=== PATIENT | male | born 1995 | race Caucasian/White ===

== ENCOUNTER → 2020-03-11 | Emergency (ER) | payer BC ==
[~2020-03-11] VITALS: Ht 177.8 cm; Wt 78.5 kg
[~2020-03-11] MED LIST: ADVIL200 MG PO; ATIVAN1 MG PO; NORCO 5-325 TA1 EACH PO; ZOFRAN4 MG PO
--- OUTSIDE RECORDS SUMMARY | ~2020-03-11 | XMS | Encounter Summary ---
Demographics + + + | Address | [address] | | | [place] [address] | + + + | Home Phone | | + + + | Preferred Language | Unknown | + + + | Marital Status | Single | + + + | Presybeterian Affiliation | 1041 | + + + | Race | Unknown | + + + | Ethnic Group | Unknown | + + + Author + + + | Author | [facility] | | | and [place] | + + + | Organization | [facility] | | | and [place] | + + + | Address | Unknown | + + + | Phone | Unavailable | + + + Support + + + + + | Name | Relationship | Address | Phone | + + + + + | Vidal Aceves/Cristiana White | ECON | [address] | | | [place] | | [place] [address] | | + + + + + | Juan Carlos Mejia | ECON | Unknown | | + + + + + Care Team Providers + +------+ + | Care Card Setter Name | Role | Phone | + +------+ + | No, Physician | PCP | Unavailable | + +------+ + Reason for Visit + +--------+ + | Reason | Onset | Comments | | | Date | | + +--------+ + | Medication Refill | 07/07/ | | | | 2014 | | + +--------+ + Encounter Details +--------+--------+ + + + | Date | Type | Department | Care Team | Description | +--------+--------+ + + + | 07/07/ | Refill | [facility] | Khari Carl, | Medication Refill | | 2014 | | ORTHOPEDIC SURGERY | [address] | | | | [address] | [place] | | | | | [place] | [address] | | | | | [address] | | | | | | [phone] | | | +--------+--------+ + + + Social History + + + +--------+------+ | Tobacco Use | Types | Packs/Day | Years | Date | | | | | Used | | + + + +--------+------+ | Current Some Day | Cigarettes | 0.1 | 2 | | | Smoker | | | | | + + + +--------+------+ + +------+---+---+ | Smokeless Tobacco: | Chew | | | | Current User | | | | + +------+---+---+ + + +---------+ + | Alcohol Use | Drinks/Week | oz/Week | Comments | + + +---------+ + | Yes | 3 Cans of beer | 3.0 | | + + +---------+ + + + + | Sex Assigned at | Date Recorded | | | | + + + | Not on file | | + + + documented as of this encounter Miscellaneous Notes Telephone Encounter - Helen Atwood - 07/08/2015 11:47 AM PDTPatients mother Cristiana ruby picked up rx with valid [id number] signed by Helen Atwood at 07/08/2015 1 1:48 AM PDTTelephone Encounter - Helen Atwood - 07/08/2015 11:19 AM PDTPatient stated his mother Misti will greens picker Rx with valid Id.Electronically signed by Helen Atwood at 11:20 AM PDTTelephone Encounter - Helen Atwood - 07/07/2015 4:39 PM PDTLeft mess age for patient to return our call. 4: 40 PM PDTTelephone Encounter - Yas Simms Cert MA - 07/07/2015 4:[address]Willard cleveland to fill the medication requested. Rx prepared and signed by . Rx placed in the designated area for the patient greens picker. Please contact the patient to let the patient know that the Rx is ready. The patient will need to provide a form of ID when picki ng up the prescription. Please verify the patients ID at greens picker. elephon e Encounter - Yas Simms Cert MA - 07/07/2015 2:41 PM PDT*Deferred to Dr. Silvino stinson* elephon e Encounter - Helen Atwood - 07/07/2015 2:09 PM PDTPatients mother called requesting Hy drocodone 5-325 mg. Patients mother can be reached at [phone]. His phone is not working currently. 2 :10 PM PDTdocumented in this encounter Plan of Treatment Not on filedocumented as of this encounter Visit Diagnoses Not on filedocumented in this encounter"
--- OUTSIDE RECORDS SUMMARY | ~2020-03-11 | XMS | Encounter Summary ---
Demographics + + + | Address | [address] | | | [place] [address] | + + + | Home Phone | | + + + | Preferred Language | Unknown | + + + | Marital Status | Single | + + + | Zoroastrian Affiliation | 1041 | + + + | Race | Unknown | + + + | Ethnic Group | Unknown | + + + Author + + + | Author | [facility] | | | and [place] | + + + | Organization | [facility] | | | and [place] | + + + | Address | Unknown | + + + | Phone | Unavailable | + + + Support + + + + + | Name | Relationship | Address | Phone | + + + + + | Vidal Aceves/Cristiana White | ECON | [address] | | | [place] | | [place] [address] | | + + + + + | Juan Carlos Mejia | ECON | Unknown | | + + + + + Care Team Providers + +------+ + | Care Clinical Cytopathologist Name | Role | Phone | + +------+ + PCP | Unavailable | + +------+ + Encounter Details +--------+ + + + + | Date | Type | Department | Care Team | Description | +--------+ + + + + | 01/04/ | Hospital | [facility] | Miguel, | | | 2008 | Encounter | [facility] | Jean Claude Marmolejo MD [address] | | | | [place] [address] | [address] | | | | | [place], [place] | [place] [address] | | | | | [address] | [phone] | | | | | [phone] | | | +--------+ + + + + Social History + +-------+ +--------+------+ | Tobacco Use | Types | Packs/Day | Years | Date | | | | | Used | | + +-------+ +--------+------+ | Never Assessed | | | | | + +-------+ +--------+------+ + + + | Sex Assigned at | Date Recorded | | | | + + + | Not on file | | + + + documented as of this encounter Plan of Treatment Not on filedocumented as of this encounter Visit Diagnoses Not on filedocumented in this encounter"
--- OUTSIDE RECORDS SUMMARY | ~2020-03-11 | XMS | Encounter Summary ---
Demographics + + + | Address | [address] | | | [place] [address] | + + + | Home Phone | | + + + | Preferred Language | Unknown | + + + | Marital Status | Single | + + + | Christianity Affiliation | 1041 | + + + | Race | Unknown | + + + | Ethnic Group | Unknown | + + + Author + + + | Author | [facility] | | | and [place] | + + + | Organization | [facility] | | | and [place] | + + + | Address | Unknown | + + + | Phone | Unavailable | + + + Support + + + + + | Name | Relationship | Address | Phone | + + + + + | Vidal Aceves/Cristiana White | ECON | [address] | | | [place] | | [place] [address] | | + + + + + | Juan Carlos Mejia | ECON | Unknown | | + + + + + Care Team Providers + +------+ + | Care Perishable Fruit Inspector Name | Role | Phone | + +------+ + | No, Physician | PCP | Unavailable | + +------+ + Reason for Visit + + + | Reason | Comments | + + + | Trauma | | + + + | Neck Injury | | + + + Encounter Details +--------+ + + + + | Date | Type | Department | Care Team | Description | +--------+ + + + + | 02/04/ | Emergency | [facility] | [place], | Cervical strain, | | 2019 | | [facility] | MD [address]ino [address] | acute, initial | | | | CENTER [address] | [address] | encounter (Primary | | | | [place], [place] | [place] [address] | Dx); Tension | | | | [id number] | [phone] | headache; Upper back | | | | [phone] | | strain, initial | | | | | | encounter | +--------+ + + + + Social History + + + +--------+------+ | Tobacco Use | Types | Packs/Day | Years | Date | | | | | Used | | + + + +--------+------+ | Former Smoker | Cigarettes | 0.1 | 2 | | + + + +--------+------+ + [...] + + documented as of this encounter Last Filed Vital Signs + + + + + | Vital Sign | Reading | Time Taken | Comments | + + + + + | Blood Pressure | 126/65 | 02/05/2020 11:50 AM | | | | | PDT | | + + + + + | Pulse | 49 | 02/05/2020 11:50 AM | | | | | PDT | | + + + + + | Temperature | 36.7 C (98 F) | 02/05/2020 9:29 AM | | | | | PDT | | + + + + + | Respiratory Rate | 16 | 02/05/2020 11:50 AM | | | | | PDT | | + + + + + | Oxygen Saturation | 99% | 02/05/2020 11:50 AM | | | | | PDT | | + + + + + | Inhaled Oxygen | - | - | | | Concentration | | | | + + + + + | Weight | 80.7 kg (178 lb) | 02/05/2020 9:29 AM | | | | | PDT | | + + + + + | Height | 177.8 cm (5' 10") | 02/05/2020 9:29 AM | | | | | PDT | | + + + + + | Body Mass Index | 25.54 | 02/05/2020 9:29 AM | | | | | PDT | | + + + + + documented in this encounter Discharge Instructions Instructions Dino Talley MD - 02/05/2020There is no evidence of fracture or bleed o r other vascular injury. This sounds like most likely a muscle strain, some of the muscle s pasm causing some headaches. Ice, ibuprofen, follow-up with your doctor for reevaluation if not improving. Return for any other concerns. Thank you for visiting [facility] Emergency Department. Please follow up with your primary care provider in the next 1-3 days unless otherwise spec ified. If you review your results on "My Charts" and there happens to be any concerns or abnormali ties that you have a question about, please follow up with your primary care provider to dis cuss these results. Please read all informational handouts and medication instructions, if provided. Please be aware that although we feel you are safe for discharge at this time, disease proc esses are dynamic and your condition may change. If you have any significant concerns about your condition that you fear may be emergent in nature, please return for re-evaluation. Changes in the disease process may allow certain conditions to be detected at a different t shiv. You would not be released today if there was evidence of an emergent medical or surgica l condition that would benefit from admission to the hospital or emergent surgery. Although this emergency department is staffed with highly trained physicians that are board certified in emergency medicine, unfortunately not all significant problems are detectable during the time of evaluation. This is why it is important for you to return if significantly concerne d, or otherwise follow up with your primary care provider for re-evaluation. documented in this encounter Medications at Time of Discharge + + + +---------+ + + | Medication | Sig | Dispensed | Refills | Start | End Date | | | | | | Date | | + + + +---------+ + + | cyclobenzaprine | take 1 tablet by | | 0 | 09/15/19 | | | (FLEXERIL) 5 MG | mouth every 6 hours | | | 17 | | | tablet | if needed | | | | | + + + +---------+ + + | ibuprofen (ADVIL, | Take 600 mg by mouth | | 0 | | | | MOTRIN) 200 mg | Twice daily as | | | | | | tablet | needed for Pain. | | | | | + + + +---------+ + + documented as of this encounter ED Notes Sugey Graves RN - 02/05/2020 9:30 AM PDTPt was thrown from a bull on Tuesday carley g the day. Has had neck pain and head pain since. Had loss of vision in the left eye immed iately after, that resolved quickly. Also had confusion after event, unknown amount of time, that resolved. Pt is unsure if he had LOC. Pt had numbness to the left pinky on Tuesday th at resolved same day. Pt is having some pain to the middle of the shoulder blade area. Pt w alked in, was placed in c-collar at urgent care. Pt had c-spine tenderness on their exam. Dino Thorne MD - 02/05/2020 9:30 AM PDT eMERGENCY dEPARTMENT eNCOUnter ED06/ED06 CHIEF COMPLAINT Chief Complaint Patient presents with Trauma Neck Injury HPI Km Hoff is a 24 y.o. male who presents to the emergency department with a chief c omplaint of neck trauma. He was thrown from a bull on Tuesday and landed on the left side of his head and neck. He does not know whether he had a loss of consciousness, he did have a brief loss of vision in the left eye, that resolved very quickly. He was reportedly a lit tle confused after the event, but that has resolved as well. He has been having headaches s gonzalez that time, and reports that he does have some tenderness in the upper thoracic region. He went to an urgent care for evaluation and they placed him in a cervical collar and sent him to the emergency department for evaluation/imaging. PAST MEDICAL HISTORY Past Medical History: Diagnosis Date Shoulder dislocation, right, subsequent encounter SURGICAL HISTORY Past Surgical History: Procedure Laterality Date KNEE ARTHROSCOPY Left 07/11/2015 Procedure: Left Knee A.C.L. Reconstruction w/ Autograft and arthroscopy; Surgeon: Khari Carl MD; Location: [facility] MAIN OR ORTHOPEDIC SURGERY Right elbow. SHOULDER ARTHROSCOPY Right 12/17/2015 Procedure: Right Shoulder Scope, Anterior Labral Repair, Capsular Shift; Surgeon: Griffin Nixon DO; Location: [facility] MAIN OR TONSILLECTOMY CURRENT MEDICATIONS cyclobenzaprine ibuprofen ALLERGIES Allergies Allergen Reactions Ketamine Other (See Comments) "doesn't come out of it for a really long time" FAMILY HISTORY History reviewed. No pertinent family history. SOCIAL HISTORY Social History Socioeconomic History Marital status: Single Spouse name: Not on file Number of children: Not on file Years of education: Not on file Highest education level: Not on file Tobacco Use Smoking status: Former Smoker Packs/day: 0.10 Years: 2.00 Pack years: 0.20 Types: Cigarettes Smokeless tobacco: Current User Types: Chew Substance and Sexual Activity Alcohol use: Yes Alcohol/week: 3.0 standard drinks Types: 3 Cans of beer per week Drug use: Yes Types: Marijuana REVIEW OF SYSTEMS A 10 + review of systems was completed and are negative except as listed in the HPI. PHYSICAL EXAM VITAL SIGNS: (first vital signs):Temp: 36.7 C (98 F) Pulse: 55 Resp: 16 SpO2: 100 % BP: 148/75 Constitutional: Well developed, Well nourished, No acute distress, Non-toxic appearance. Wearing a cervical collar. HENT: Normocephalic, Atraumatic. Bilateral external ears normal, Oropharynx moist, no ton song enlargement, exudates, or ulcerations. Nose normal without rhinorrhea. Neck-wearing a cervical collar, range of motion not tested. He does have some tenderness in the suboccip ital region, Supple, No stridor. Eyes: PERRL, EOMI, Conjunctiva normal without discharge. There is no evidence of scleral injection. Respiratory: Normal breath sounds, No respiratory distress, No rales, rhonchi, or wheezing . No reproducible chest tenderness. Cardiovascular: Normal heart rate and rhythm. No rubs, gallops, or murmurs. GI: Abdomen is soft, non-tender. There are normal bowel sounds. No palpable masses or or ganomegaly. Musculoskeletal: Intact distal pulses, No clubbing, cyanosis, or edema. Good range of mot ion in all major joints. No tenderness to palpation or major deformities noted. Back- centra l upper thoracic tenderness. Integument: Warm and Dry, without evidence of rash or erythema. Lymphatic: No palpable lymphadenopathy noted. Neurologic: Alert & oriented x 3, Normal motor function, Normal sensory function, No focal deficits noted. Psychiatric: Affect normal, Judgment normal, Mood normal. EKG None RADIOLOGY Xr Thoracic Spine 2 Vw Result Date: 02/05/2020 XR THORACIC SPINE 2 VW 02/05/2020 10:29 AM HISTORY: TRAUMA NECK INJURY. COMPARISON: None. FI NDINGS: There are no acute osseous findings. Slight left curvature of the lumbar spine is se en. Vertebral body height are preserved with no evidence for compression fractures. Disc hei ght are maintained. Facet joints are intact. On the lateral view, screw hardware overlaps wi th the upper chest region. Contrast is observed within the renal pelves. Soft tissue structu res are unremarkable. No acute findings. Dictated and Signed by: Jethro Colvin MD Electronically signed: 0 11:[address] Angiogram Head Neck W Contrast Result Date: 02/05/2020 CT ANGIOGRAM HEAD NECK W CONTRAST 02/05/2020 10:02 AM HISTORY: neck injury. COMPARISON: None PROTOCOL: Axial CT images of the head were obtained precontrast. Thin section axial CTA christina ges of the head and neck were acquired after 125 mL Omnipaque 350. Coronal and sagittal refo rmations were obtained. CT HEAD FINDINGS: The brain parenchyma demonstrates no evidence for acute infarct, mass lesion, or hemorrhage. The brainstem is unremarkable. The cerebellum is normal. The pituitary gland is grossly normal. The ventricles, cisterns, and sulci are of no rmal size and shape. The orbits show no acute findings. Paranasal sinuses are clear. Mastoid air cells are normal. Calvarium, temporal bones, and skull base structures are unremarkable . CTA HEAD FINDINGS: Right Carotid: The petrous, cavernous, and supraclinoid segments are pa tent. There is normal branching of the MCA and MELISSA. Left Carotid: The petrous, cavernous, an d supraclinoid segments are patent. There is normal branching of the MCA and MELISSA. Vertebroba silar: The bilateral vertebral arteries and basilar artery are patent. CTA NECK FINDINGS: Ao rta and Branches: The aorta and proximal branches are patent. Right Carotid: The common, int ernal, and external carotid arteries are patent with no significant stenosis. Left Carotid: The common, internal, and external carotid arteries are patent with no significant stenosis. Vertebrals: The bilateral vertebral arteries are patent. The nasopharynx, oropharynx, epigl ottis, hypopharynx, and larynx are normal. The oral cavity is unremarkable. The parapharynge al, retropharyngeal, and tobacco prizer spaces are normal. The parotid glands and submandibular glands are normal. The thyroid is unremarkable. No enlarged lymph nodes are visualized of th e neck. There are no acute osseous abnormalities. Reversal of the normal cervical lordosis, likely positional. The upper chest shows no acute findings. No acute arterial dissection or other acute traumatic abnormality identified. No occlusion. No acute intracranial abnormality identified. No neck soft tissue injury identified on CT. No acute cervical spine fracture. Reversal of the normal cervical lordosis possibly position al or related to muscle spasm. Dictated and Signed by: Yung Muñiz MD Electronically sig [place]: 02/05/2020 11:08 AM Labs: Results for orders placed or performed during the hospital encounter of 02/05/20 CBC with Differential Result Value Ref Range WBC 7.8 4.0 - 11.0 K/uL RBC 5.27 4.30 - 5.70 M/uL Hemoglobin 15.8 13.5 - 18.0 g/dL Hematocrit 45.4 40.0 - 51.0 % MCV 86.1 83.0 - 101.0 fL MCH 30.0 28.0 - 35.0 pg MCHC 34.8 32.0 - 36.0 g/dL RDW-CV 12.9 <15.0 % RDW-SD 40.2 35.1 - 46.3 fL Platelet Count 246 140 - 440 K/uL MPV 10.6 6.5 - 12.4 fL % Neutrophils 58.1 45.0 - 82.0 % % Lymphocytes 28.0 20.0 - 45.0 % % Monocytes 8.5 4.0 - 12.0 % % Eosinophils 4.7 0.0 - 5.0 % % Basophils 0.4 0.0 - 1.0 % % Immature Granulocytes 0.3 0.0 - 0.4 % Absolute Neutrophils 4.53 1.80 - 8.50 K/uL Absolute Lymphocytes 2.18 0.60 - 3.20 K/uL Absolute Monocytes 0.66 0.00 - 1.00 K/uL Absolute Eosinophils 0.37 0.00 - 0.40 K/uL Absolute Basophils 0.03 0.00 - 0.10 K/uL Absolute Immature Granulocytes 0.02 0.00 - 0.03 K/uL % nRBC 0 0 - 2 per 100 WBCs Absolute nRBC 0.00 0.00 - 0.01 K/uL Comprehensive Metabolic Panel Result Value Ref Range Na 136 136 - 145 mmol/L K 4.0 3.4 - 5.1 mmol/L Cl 103 98 - 107 mmol/L CO2 30 20 - 31 mmol/L Anion Gap 3 3 - 16 mmol/L Glucose 107 (H) 60 - 106 mg/dL BUN 17 9 - 23 mg/dL Creatinine 1.05 0.70 - 1.30 mg/dL eGFR if not >60 >=60 mL/min/1.73m2 Calcium 9.6 8.7 - 10.4 mg/dL Albumin 4.5 3.2 - 4.8 g/dL Bilirubin Total 0.8 0.3 - 1.2 mg/dL Total Protein 6.5 5.7 - 8.2 g/dL AST 18 0 - 34 U/L ALT 16 10 - 49 U/L Alkaline Phosphatase 71 46 - 116 U/L Globulin 2.0 (L) 2.1 - 3.8 g/dL Albumin/Globulin Ratio 2.3 (H) 0.8 - 1.9 BUN/Creatinine Ratio 16.2 PROCEDURES None Medications Administered During This Visit: ED Medication Administration from 02/05/2020 0925 to 02/05/2020 1324 Date/Time Order Dose Route Action Action by 02/05/2020 1010 iohexol (OMNIPAQUE 350) 350 mg/mL injection 125 mL 125 mL Intravenous Giv en Philip Plasencia, Technologist 02/05/2020 1010 sodium chloride 0.9% (NS) bolus 60 mL 60 mL Intravenous Push Philip leos, Technologist Last set of Vital Signs: Temp: 36.7 C (98 F) Pulse: (!) 49 Resp: 16 SpO2: 99 % BP: 126/ 65 ED COURSE & MEDICAL DECISION MAKING Pertinent Labs & Imaging studies reviewed. (See chart for details) Medication and allergies list reviewed. Nurse's notes and old records reviewed. On patient's arrival he was evaluated for neck pain, upper back pain, possible concussion v ersus neck injury with dissection or intracranial bleed. He appears stable with some tender ness in the suboccipital triangle region suggesting more of a cervical strain and tension he adaches. On clarification of his symptoms with his headaches he confirms that his headaches feel like more of a bandlike sensation around his temples. Medical Decision Making as of Feb 04 1327 Tue February 05, 2020 1024 CBC shows white count of 7.8 differentials unremarkable no signs of anemia. 1122 CT angiogram of the head and neck was unremarkable no signs of vascular occlusion or d issection. No soft tissue injury. 1123 Comprehensive metabolic panel shows normal electrolytes, creatinine 1.05 no evidence o f acute renal dysfunction. LFTs are unremarkable. 1153 Thoracic spine was unremarkable no signs of fracture. 1153 Patient was reassured that there is no evidence of fracture or other significant injur y to the neck or upper back. He likely has a muscle strain of the cervical spine causing hi m some headaches with the muscle spasm. Recommended ice, ibuprofen. Follow-up with his doc tor as needed return for any other concerns. There is no evidence of dissection. There is no evidence of dissection, fracture, or other abnormality on the imaging. Recomme nded ibuprofen, icing, possible massage in a couple of days. If he is not improving he can follow-up with his primary care physician and they can consider referral for some physical t herapy. Patient is agreement with this plan and discharged in stable condition. FINAL IMPRESSION 1. Cervical strain, acute, initial encounter 2. Tension headache 3. Upper back strain, initial encounter FOLLOW-UP Your PCP NEW PRESCRIPTIONS Discharge Medication List as of 02/05/2020 12:25 PM Portions of this chart may have been created with voice recognition software. Occasional " wrong-word" or "sound-alike" substitutions may have occurred due to the inherent limitations of voice recognition software. Please read the chart carefully and recognize, using [employer], where these substitutions may have occurred. Dino Talley MD 02/05/20 1328 documented in this encounter Plan of Treatment Not on filedocumented as of this encounter Procedures + +--------+ + + + | Procedure Name | Priori | Date/Time | Associated Diagnosis | Comments | | | ty | | | | + +--------+ + + + | XR THORACIC SPINE 2 | STAT | 02/05/2020 | | Results for this | | VW | | 10:29 AM | | procedure are in the | | | | PDT | | results section. | + +--------+ + + + | CT ANGIOGRAM HEAD | STAT | 02/05/2020 | | Results for this | | NECK | | 10:06 AM | | procedure are in the | | | | PDT | | results section. | + +--------+ + + + | CBC WITH | STAT | 02/05/2020 | | Results for this | | DIFFERENTIAL | | 9:52 AM | | procedure are in the | | | | PDT | | results section. | + +--------+ + + + | COMPREHENSIVE | STAT | 02/05/2020 | | Results for this | | METABOLIC PANEL | | 9:52 AM | | procedure are in the | | | | PDT | | results section. | + +--------+ + + + documented in this encounter Results XR Thoracic Spine 2 Vw (02/05/2020 10:29 AM PDT) + + | Specimen | + + | | + + + + + | Impressions | Performed At | + + + | No acute findings. Dictated and Signed by: Jethro Colvin MD | [facility] | | Electronically signed: 02/05/2020 11:20 AM | | + + + + + + | Narrative | Performed At | + + + | XR THORACIC SPINE 02/05/2020 10:29 AM HISTORY: TRAUMA NECK | [facility] | | INJURY. COMPARISON: None. FINDINGS: There are no acute | | | osseous findings. Slight left curvature of the lumbar spine is seen. | | | Vertebral body height are preserved with no evidence for compression | | | fractures. Disc height are maintained. Facet joints are intact. On the | | | lateral view, screw hardware overlaps with the upper chest region. | | | Contrast is observed within the renal pelves. Soft tissue structures | | | are unremarkable. | | + + + + + | Procedure Note | + + | Dominic, Rad Results In - 02/05/2020 11:23 AM PDT XR THORACIC SPINE 2 VW 02/05/2020 10:29 | | AMHISTORY: TRAUMANECK INJURY.COMPARISON: None.FINDINGS:There are no acute osseous | | findings. Slight left curvature of the lumbar spineis seen. Vertebral body height are | | preserved with no evidence for compressionfractures. Disc height are maintained. Facet | | joints are intact. On the lateralview, screw hardware overlaps with the upper chest | | region. Contrast is observedwithin the renal pelves. Soft tissue structures are | | unremarkable.IMPRESSION: No acute findings.Dictated and Signed by: Jethro Colvin MD | | Electronically signed: 02/05/2020 11:20 AM | |There are no acute osseous findings. Slight left curvature of the lumbar spine | |is seen. Vertebral body height are preserved with no evidence for compression | |fractures. Disc height are maintained. Facet joints are intact. On the lateral | |view, screw hardware overlaps with the upper chest region. Contrast is observed | |within the renal pelves. Soft tissue structures are unremarkable. | | | |IMPRESSION: | |No acute findings. | | | |Dictated and Signed by: Jethro Colvin MD | | Electronically signed: 02/05/2020 11:20 AM | + + + +---------+ + + | Performing | Address | City/State/Zipcode | Phone Number | | Organization | | | | + +---------+ + + | [facility] | | | | + +---------+ + + CT Angiogram Head Neck w Contrast (02/05/2020 10:06 AM PDT) + + | Specimen | + + | | + + + + + | Impressions | Performed At | + + + | No acute arterial dissection or other acute traumatic abnormality | [facility] | | identified. No occlusion. No acute intracranial abnormality | | | identified. No neck soft tissue injury identified on CT. No | | | acute cervical spine fracture. Reversal of the normal cervical | | | lordosis possibly positional or related to muscle spasm. Dictated | | | and Signed by: Yung Muñiz MD Electronically signed: 02/05/2020 | | | 11:08 AM | | + + + + + + | Narrative | Performed At | + + + | CT ANGIOGRAM HEAD NECK W CONTRAST 02/05/2020 10:02 AM HISTORY: | [facility] | | neck injury. COMPARISON: None PROTOCOL: Axial CT images of | | | the head were obtained precontrast. Thin section axial CTA images of | | | the head and neck were acquired after 125 mL Omnipaque 350. Coronal | | | and sagittal reformations were obtained. CT HEAD FINDINGS: The | | | brain parenchyma demonstrates no evidence for acute infarct, mass | | | lesion, or hemorrhage. The brainstem is unremarkable. The cerebellum | | | is normal. The pituitary gland is grossly normal. The ventricles, | | | cisterns, and sulci are of normal size and shape. The orbits show | | | no acute findings. Paranasal sinuses are clear. Mastoid air cells | | | are normal. Calvarium, temporal bones, and skull base structures | | | are unremarkable. CTA HEAD FINDINGS: Right Carotid: The petrous, | | | cavernous, and supraclinoid segments are patent. There is normal | | | branching of the MCA and MELISSA. Left Carotid: The petrous, | | | cavernous, and supraclinoid segments are patent. There is normal | | | branching of the MCA and MELISSA. Vertebrobasilar: The bilateral | | | vertebral arteries and basilar artery are patent. CTA NECK | | | FINDINGS: Aorta and Branches: The aorta and proximal branches are | | | patent. Right Carotid: The common, internal, and external carotid | | | arteries are patent with no significant stenosis. Left Carotid: | | | The common, internal, and external carotid arteries are patent with | | | no significant stenosis. Vertebrals: The bilateral vertebral | | | arteries are patent. The nasopharynx, oropharynx, epiglottis, | | | hypopharynx, and larynx are normal. The oral cavity is unremarkable. | | | The parapharyngeal, retropharyngeal, and tobacco prizer spaces are | | | normal. The parotid glands and submandibular glands are normal. The | | | thyroid is unremarkable. No enlarged lymph nodes are visualized of the | | | neck. There are no acute osseous abnormalities. Reversal of the | | | normal cervical lordosis, likely positional. The upper chest | | | shows no acute findings. | | + + + + + | Procedure Note | + + | Dominic, Rad Results In 02/05/2020 11:[address] ANGIOGRAM HEAD NECK W CONTRAST | | 02/05/2020 10:02 AMHISTORY: neck injury.COMPARISON: NonePROTOCOL: Axial CT images of the | | head were obtained precontrast. Thin sectionaxial CTA images of the head and neck were | | acquired after 125 mL Omnipaque 350.Coronal and sagittal reformations were obtained.CT | | HEAD FINDINGS:The brain parenchyma demonstrates no evidence for acute infarct, mass | | lesion, orhemorrhage. The brainstem is unremarkable. The cerebellum is normal. | | Thepituitary gland is grossly normal.The ventricles, cisterns, and sulci are of normal | | size and shape.The orbits show no acute findings. Paranasal sinuses are clear. Mastoid | | aircells are normal.Calvarium, temporal bones, and skull base structures are | | unremarkable.CTA HEAD FINDINGS:Right Carotid: The petrous, cavernous, and supraclinoid | | segments are patent.There is normal branching of the MCA and MELISSA.Left Carotid: The | | petrous, cavernous, and supraclinoid segments are patent.There is normal branching of | | the MCA and MELISSA.Vertebrobasilar: The bilateral vertebral arteries and basilar artery are | | patent.CTA NECK FINDINGS:Aorta and Branches: The aorta and proximal branches are | | patent.Right Carotid: The common, internal, and external carotid arteries are patentwith | | no significant stenosis.Left Carotid: The common, internal, and external carotid | | arteries are patentwith no significant stenosis.Vertebrals: The bilateral vertebral | | arteries are patent.The nasopharynx, oropharynx, epiglottis, hypopharynx, and larynx are | | normal. Theoral cavity is unremarkable. The parapharyngeal, retropharyngeal, and | | masticatorspaces are normal. The parotid glands and submandibular glands are normal. | | Thethyroid is unremarkable. No enlarged lymph nodes are visualized of the neck.There are | | no acute osseous abnormalities. Reversal of the normal cervicallordosis, likely | | positional.The upper chest shows no acute findings.IMPRESSION: No acute arterial | | dissection or other acute traumatic abnormality identified. Noocclusion.No acute | | intracranial abnormality identified.No neck soft tissue injury identified on CT.No acute | | cervical spine fracture. Reversal of the normal cervical lordosispossibly positional or | | related to muscle spasm.Dictated and Signed by: Yung Muñiz MD Electronically | | signed: 02/05/2020 11:08 AM | |There is normal branching of the MCA and MELISSA. | | | |Vertebrobasilar: The bilateral vertebral arteries and basilar artery are patent. | | | |CTA NECK FINDINGS: | |Aorta and Branches: The aorta and proximal branches are patent. | | | |Right Carotid: The common, internal, and external carotid arteries are patent | |with no significant stenosis. | | | |Left Carotid: The common, internal, and external carotid arteries are patent | |with no significant stenosis. | | | |Vertebrals: The bilateral vertebral arteries are patent. | | | |The nasopharynx, oropharynx, epiglottis, hypopharynx, and larynx are normal. The | |oral cavity is unremarkable. The parapharyngeal, retropharyngeal, and tobacco prizer | |spaces are normal. The parotid glands and submandibular glands are normal. The | |thyroid is unremarkable. No enlarged lymph nodes are visualized of the neck. | | | |There are no acute osseous abnormalities. Reversal of the normal cervical | |lordosis, likely positional. | | | |The upper chest shows no acute findings. | | | |IMPRESSION: | |No acute arterial dissection or other acute traumatic abnormality identified. No | |occlusion. | | | |No acute intracranial abnormality identified. | | | |No neck soft tissue injury identified on CT. | | | |No acute cervical spine fracture. Reversal of the normal cervical lordosis | |possibly positional or related to muscle spasm. | | | |Dictated and Signed by: Yung Muñiz MD | | Electronically signed: 02/05/2020 11:08 AM | + + + +---------+ + + | Performing | Address | City/State/Zipcode | Phone Number | | Organization | | | | + +---------+ + + | [facility] | | | | + +---------+ + + Comprehensive Metabolic Panel (02/05/2020 9:52 AM PDT) + + + + + + | Component | Value | Ref Range | Performed | Pathologist | | | | | At | Signature | + + + + + + | Na | 136 | 136 - 145 | [facility] | | | | | mmol/L | [facility] | | | [facility] | [facility] | | | | | | [facility] - | | | | | | LABORATORY | | + + + + + + | K | 4.0 | 3.4 - 5.1 | [facility] | | | | | mmol/L | [facility] | | | | | | MED[facility] | | | | | | CENTER - | | | | | | LABORATORY | | + + + + + + | Cl | 103 | 98 - 107 mmol/L | [facility] | | | | | | [facility] | | | | | | MEDICAL | | | | | | CENTER - | | | | | | LABORATORY | | + + + + + + | CO2 | 30 | 20 - 31 mmol/L | [facility] | | | | | | [facility] | | | | | | MEDICAL | | | | | | CENTER - | | | | | | LABORATORY | | + + + + + + | Anion Gap | 3 | 3 - 16 mmol/L | [facility] | | | | | | [facility] | | | | | | MEDICAL | | | | | | CENTER - | | | | | | LABORATORY | | + + + + + + | Glucose | 107 (H) | 60 - 106 mg/dL | [facility] | | | | | | [facility] | | | | | | MEDICAL | | | | | | CENTER - | | | | | | LABORATORY | | + + + + + + | BUN | 17 | 9 - 23 mg/dL | [facility] | | | | | | [facility] | | | | | | MEDICAL | | | | | | CENTER - | | | | | | LABORATORY | | + + + + + + | Creatinine | 1.05 | 0.70 - 1.30 | [facility] | | | | | mg/dL | [facility] | | | | | | MEDICAL | | | | | | CENTER - | | | | | | LABORATORY | | + + + + + + | eGFR if not | >60Comment: GLOMERULAR | >=60 | [facility] | | | | FILTRATION | mL/min/1.73m2 | [facility] | | | [place] | RATE,ESTIMATED | | MEDICAL | | | | mL/min/1.51u7Hhxp than | | CENTER - | | | | 60 Chronic kidney | | LABORATORY | | | | disease,if found over a | | | | | | 3-month period.Less than | | | | | | 15 Kidney failureFor | | | | | | | | | | | | Americans,multiply the | | | | | | calculated GFR by 1.21. | | | | | | | | | | + + + + + + | Calcium | 9.6 | 8.7 - 10.4 | [facility] | | | | | mg/dL | [facility] | | | | | | MEDICAL | | | | | | CENTER - | | | | | | LABORATORY | | + + + + + + | Albumin | 4.5 | 3.2 - 4.8 g/dL | [facility] | | | | | [facility] | | | | | | [facility] | | | | | | CENTER - | | | | | | LABORATORY | | + + + + + + | Bilirubin | 0.8 | 0.3 - 1.2 mg/dL | [facility] | | | Total | | | [facility] | | | | | | MEDICAL | | | | | | CENTER - | | | | | | LABORATORY | | + + + + + + | Total | 6.5 | 5.7 - 8.2 g/dL | [facility] | | | Protein | | | [facility] | | | | | | MEDICAL | | | | | | CENTER - | | | | | | LABORATORY | | + + + + + + | AST | 18 | 0 - 34 U/L | [facility] | | | | | | [facility] | | | | | | MEDICAL | | | | | | CENTER - | | | | | | LABORATORY | | + + + + + + | ALT | 16 | 10 - 49 U/L | [facility] | | | | | | [facility] | | | | | | MEDICAL | | | | | | CENTER - | | | | | | LABORATORY | | + + + + + + | Alkaline | 71 | 46 - 116 U/L | [facility] | | | Phosphatase | | | [facility] | | | | | | MEDICAL | | | | | | CENTER - | | | | | | LABORATORY | | + + + + + + | Globulin | 2.0 (L) | 2.1 - 3.8 g/dL | [facility] | | | | | | [facility] | | | | | | MEDICAL | | | | | | CENTER - | | | | | | LABORATORY | | + + + + + + | Albumin/Anayeli | 2.3 (H) | 0.8 - 1.9 | [facility] | | | bulin Ratio | | | [facility] | | | | | | MEDICAL | | | | | | CENTER - | | | | | | LABORATORY | | + + + + + + | BUN/Creatin | 16.2 | | [facility] | | | ine Ratio | | | [facility] | | | | | | MEDICAL | | | | | | CENTER - | | | | | | LABORATORY | | + + + + + + + + | Specimen | + + | Blood | + + + + + + + | Performing | Address | City/State/Zipcode | Phone Number | | Organization | | | | + + + + + | [facility] | [address] | [place] | [phone] | | [facility] | | [address] | | | - LABORATORY | | | | + + + + + CBC with Differential (02/05/2020 9:52 AM PDT) + +-------+ + + + | Component | Value | Ref Range | Performed | Pathologist | | | | | At | Signature | + +-------+ + + + | WBC | 7.8 | 4.0 - 11.0 K/uL | [facility] | | | | | | [facility] | | | | | | MEDICAL | | | | | | CENTER - | | | | | | LABORATORY | | + +-------+ + + + | RBC | 5.27 | 4.30 - 5.70 | [facility] | | | | | M/uL | [facility] | | | | | | MEDICAL | | | | | | CENTER - | | | | | | LABORATORY | | + +-------+ + + + | Hemoglobin | 15.8 | 13.5 - 18.0 | [facility] | | | | | g/dL | [facility] | | | | | | MEDICAL | | | | | | CENTER - | | | | | | LABORATORY | | + +-------+ + + + | Hematocrit | 45.4 | 40.0 - 51.0 % | [facility] | | | | | | [facility] | | | | | | MEDICAL | | | | | | CENTER - | | | | | | LABORATORY | | + +-------+ + + + | MCV | 86.1 | 83.0 - 101.0 fL | [facility] | | | | | | [facility] | | | | | | MED[facility] | | | | | | CENTER - | | | | | | LABORATORY | | + +-------+ + + + | MCH | 30.0 | 28.0 - 35.0 pg | [facility] | | | | | | [facility] | | | | | | MEDICAL | | | | | | CENTER - | | | | | | LABORATORY | | + +-------+ + + + | MCHC | 34.8 | 32.0 - 36.0 | [facility] | | | | | g/dL | [facility] | | | | | | MEDICAL | | | | | | CENTER - | | | | | | LABORATORY | | + +-------+ + + + | RDW-CV | 12.9 | <15.0 % | [facility] | | | | | | [facility] | | | | | | MEDICAL | | | | | | CENTER - | | | | | | LABORATORY | | + +-------+ + + + | RDW-SD | 40.2 | 35.1 - 46.3 fL | [facility] | | | | | | [facility] | | | | | | MEDICAL | | | | | | CENTER - | | | | | | LABORATORY | | + +-------+ + + + | Platelet | 246 | 140 - 440 K/uL | [facility] | | | Count | | | [facility] | | | | | | MEDICAL | | | | | | CENTER - | | | | | | LABORATORY | | + +-------+ + + + | MPV | 10.6 | 6.5 - 12.4 fL | [facility] | | | | | | [facility] | | | | | | MEDICAL | | | | | | CENTER - | | | | | | LABORATORY | | + +-------+ + + + | % | 58.1 | 45.0 - 82.0 % | [facility] | | | Neutrophils | | | [facility] | | | | | | MEDICAL | | | | | | CENTER - | | | | | | LABORATORY | | + +-------+ + + + | % | 28.0 | 20.0 - 45.0 % | [facility] | | | Lymphocytes | | | [facility] | | | | | | MEDICAL | | | | | | CENTER - | | | | | | LABORATORY | | + +-------+ + + + | % Monocytes | 8.5 | 4.0 - 12.0 % | [facility] | | | | | | [facility] | | | | | | MEDICAL | | | | | | CENTER - | | | | | | LABORATORY | | + +-------+ + + + | % | 4.7 | 0.0 - 5.0 % | [facility] | | | Eosinophils | | | [facility] | | | | | | MEDICAL | | | | | | CENTER - | | | | | | LABORATORY | | + +-------+ + + + | % Basophils | 0.4 | 0.0 - 1.0 % | [facility] | | | | | | [facility] | | | | | | MEDICAL | | | | | | CENTER - | | | | | | LABORATORY | | + +-------+ + + + | % Immature | 0.3 | 0.0 - 0.4 % | [facility] | | | Granulocyte | | | [facility] | | | s | | | MEDICAL | | | | | | CENTER - | | | | | | LABORATORY | | + +-------+ + + + | Absolute | 4.53 | 1.80 - 8.50 | [facility] | | | Neutrophils | | K/uL | [facility] | | | | | | MEDICAL | | | | | | CENTER - | | | | | | LABORATORY | | + +-------+ + + + | Absolute | 2.18 | 0.60 - 3.20 | [facility] | | | Lymphocytes | | K/uL | [facility] | | | | | | MEDICAL | | | | | | CENTER - | | | | | | LABORATORY | | + +-------+ + + + | Absolute | 0.66 | 0.00 - 1.00 | [facility] | | | Monocytes | | K/uL | [facility] | | | | | | MEDICAL | | | | | | CENTER - | | | | | | LABORATORY | | + +-------+ + + + | Absolute | 0.37 | 0.00 - 0.40 | [facility] | | | Eosinophils | | K/uL | [facility] | | | | | | MEDICAL | | | | | | CENTER - | | | | | | LABORATORY | | + +-------+ + + + | Absolute | 0.03 | 0.00 - 0.10 | [facility] | | | Basophils | | K/uL | [facility] | | | | | | MEDICAL | | | | | | CENTER - | | | | | | LABORATORY | | + +-------+ + + + | Absolute | 0.02 | 0.00 - 0.03 | [facility] | | | Immature | | K/uL | [facility] | | | Granulocyte | | | MEDICAL | | | s | | | CENTER - | | | | | | LABORATORY | | + +-------+ + + + | % nRBC | 0 | 0 - 2 per 100 | [facility] | | | | | WBCs | [facility] | | | | | | MEDICAL | | | | | | CENTER - | | | | | | LABORATORY | | + +-------+ + + + | Absolute | 0.00 | 0.00 - 0.01 | [facility] | | | nRBC | | K/uL | [facility] | | | | | | MEDICAL | | | | | | CENTER - | | | | | | LABORATORY | | + +-------+ + + + + + | Specimen | + + | Blood | + + + + + + + | Performing | Address | City/State/Zipcode | Phone Number | | Organization | | | | + + + + + | [facility] | [address] | [place] | [phone] | | [facility] | | [address] | | | - LABORATORY | | | | + + + + + documented in this encounter Visit Diagnoses + + | Diagnosis | + + | Cervical strain, acute, initial encounter - Primary | + + | Tension headache | + + | Upper back strain, initial encounter | + + documented in this encounter Administered Medications + +--------+ +---------+------+------+ | Medication Order | MAR | Action | Dose | Rate | Site | | | Action | Date | | | | + +--------+ +---------+------+------+ | iohexol (OMNIPAQUE 350) 350 | Given | 02/05/20 | 125 mLs | | | | mg/mL injection 125 mL 125 mL, | | 20 10:10 | | | | | Intravenous, ONCE PRN, Other, For | | AM PDT | | | | | CT Scan, Starting 02/05/20 at | | | | | | | 1010, For 1 dose, Radiology | | | | | | + +--------+ +---------+------+------+ +---+---+ | | | +---+---+ + +------+ +--------+-------+---+ | sodium chloride 0.9% (NS) bolus | Push | 02/05/20 | 60 mLs | 3600 | | | 60 mL 60 mL, Intravenous, | | 20 10:10 | | mL/hr | | | Administer over 1 Minutes, ONCE | | AM PDT | | | | | PRN, for CT contrast study, | | | | | | | Starting 02/05/20 at 1010, For | | | | | | | 1 dose, Radiology | | | | | | + +------+ +--------+-------+---+ +---+---+ | | | +---+---+ documented in this encounter
--- OUTSIDE RECORDS SUMMARY | ~2020-03-11 | XMS | Encounter Summary ---
Demographics + + + | Address | [address] | | | [place] [address] | + + + | Home Phone | | + + + | Preferred Language | Unknown | + + + | Marital Status | Single | + + + | Druze Affiliation | 1041 | + + + | Race | Unknown | + + + | Ethnic Group | Unknown | + + + Author + + + | Author | [facility] | | | and [place] | + + + | Organization | [facility] | | | and [place] | + + + | Address | Unknown | + + + | Phone | Unavailable | + + + Support + + + + + | Name | Relationship | Address | Phone | + + + + + | Vidal Aceves/Cristiana White | ECON | [address] | | | [place] | | [place] [address] | | + + + + + | Juan Carlos Mejia | ECON | Unknown | | + + + + + Care Team Providers + +------+ + | Care Supervisor Coffee Name | Role | Phone | + +------+ + | No, Physician | PCP | Unavailable | + +------+ + Reason for Visit + +--------+ + | Reason | Onset | Comments | | | Date | | + +--------+ + | Medication Refill | 08/11/ | | | | 2014 | | + +--------+ + Encounter Details +--------+ + + + + | Date | Type | Department | Care Team | Description | +--------+ + + + + | 08/11/ | Telephone | [facility] | Khari Carl, | Medication Refill | | 2014 | | ORTHOPEDIC SURGERY | [address] | | | | [address] | [place] | | | | | [place] | [address] | | | | | [address] | | | | | | [phone] | | | +--------+ + + + [...] this encounter Miscellaneous Notes Telephone Encounter - Yas Simms Cert MA - 08/11/2015 11:44 AM PSTThisana ann e addressed at his appointment on . elephone Encounter - Helen Atwood - 08/11/2015 10:29 [address]Patient called and requested a refill on his hydrocodone 10-325 mg. He stated he will pick it up on his appointment on 08-13-2015. documented in this encounter Plan of Treatment Not on filedocumented as of this encounter Visit Diagnoses Not on filedocumented in this encounter"
--- OUTSIDE RECORDS SUMMARY | ~2020-03-11 | XMS | Encounter Summary ---
Demographics + + + | Address | [address] | | | [place] [address] | + + + | Home Phone | | + + + | Preferred Language | Unknown | + + + | Marital Status | Single | + + + | Gnosticist Affiliation | 1041 | + + + | Race | Unknown | + + + | Ethnic Group | Unknown | + + + Author + + + | Author | [facility] | | | and [place] | + + + | Organization | [facility] | | | and [place] | + + + | Address | Unknown | + + + | Phone | Unavailable | + + + Support + + + + + | Name | Relationship | Address | Phone | + + + + + | Vidal Aceves/Cristiana White | ECON | [address] | | | [place] | | [place] [address] | | + + + + + | Juan Carlos Mejia | ECON | Unknown | | + + + + + Care Team Providers + +------+ + | Care Associate Professor Of Surgery Name | Role | Phone | + +------+ + | No, Physician | PCP | Unavailable | + +------+ + Reason for Visit + +--------+ + | Reason | Onset | Comments | | | Date | | + +--------+ + | Medication Refill | 11/07/ | | | | 2015 | | + +--------+ + Encounter Details +--------+--------+ + + + | Date | Type | Department | Care Team | Description | +--------+--------+ + + + | 11/07/ | Refill | [facility] | Khari Carl, | Medication Refill | | 2015 | | ORTHOPEDIC SURGERY | [address] | | | | [address] | [place] | | | | | [place] | [address] | | | | | [address] | | | | | | [phone] | | | +--------+--------+ + + + [...] this encounter Miscellaneous Notes Telephone Encounter - Lis Dumont - 11/07/2015 1:56 PM PSTRX picked up by patient per [place] Licensed Retail Supervisor license el ephone Encounter - Helen Atwood - 11/07/2015 1:30 PM PSTLeft message for patient to retu rn our call. Mother Cristiana Hoff will filler picker with valid Id.Electronically signed by Helen lantigua 11/07/2015 1:31 PM PSTTelephone Encounter - Yas Simms Cert MA - 11/07/2015 1:[address]Willard cleveland to fill the medication requested. Rx prepared and signed by . Rx placed in the designated area for the patient filler picker. Please contact the pa tient to let the patient know that the Rx is ready. The patient will need to provide a form of ID when picking up the prescription. Please verify the patients ID at filler picker. rx placed at urgent care.Electronically signed by Aaliyah Johnson MA at 2015 1:01 PM PSTTelephone Encounter - Helen Atwood - 11/07/2015 9:38 AM PSTPatient is c alling requesting a refill on his hydrocodone 10 mg. He can be reached at [phone] documented in this encoun ter Plan of Treatment Not on filedocumented as of this encounter Visit Diagnoses Not on filedocumented in this encounter"
--- OUTSIDE RECORDS SUMMARY | ~2020-03-11 | XMS | Encounter Summary ---
Demographics + + + | Address | [address] | | | [place] [address] | + + + | Home Phone | | + + + | Preferred Language | Unknown | + + + | Marital Status | Single | + + + | Spiritism Affiliation | 1041 | + + + | Race | Unknown | + + + | Ethnic Group | Unknown | + + + Author + + + | Author | [facility] | | | and [place] | + + + | Organization | [facility] | | | and [place] | + + + | Address | Unknown | + + + | Phone | Unavailable | + + + Support + + + + + | Name | Relationship | Address | Phone | + + + + + | Vidal Aceves/Cristiana White | ECON | [address] | | | [place] | | [place] [address] | | + + + + + | Juan Carlos Mejia | ECON | Unknown | | + + + + + Care Team Providers + +------+ + | Care Telesales Consultant Name | Role | Phone | + +------+ + | No, Physician | PCP | Unavailable | + +------+ + Reason for Visit +---------+ + | Reason | Comments | +---------+ + | Post Op | Post op Left knee ACL repair DOS: 07/11/2015 | +---------+ + Encounter Details +--------+---------+ + + + | Date | Type | Department | Care Team | Description | +--------+---------+ + + + | 08/13/ | Office | [facility] | Khari Carl, | Postop check | | 2015 | Visit | ORTHOPEDIC SURGERY | [address] | (Primary Dx) | | | | [address] | [place] | | | | | [place] | [address] | | | | | [address] | | | | | | [phone] | | | +--------+---------+ + + + Social History + + [...] + + + | Blood Pressure | - | - | | + + + + + | Pulse | - | - | | + + + + + | Temperature | - | - | | + + + + + | Respiratory Rate | - | - | | + + + + + | Oxygen Saturation | - | - | | + + + + + | Inhaled Oxygen | - | - | | | Concentration | | | | + + + + + | Weight | 72.6 kg (160 lb) | 08/13/2015 4:11 PM | | | | | PST | | + + + + + | Height | 180.3 cm (5' 11") | 08/13/2015 4:11 PM | | | | | PST | | + + + + + | Body Mass Index | 22.32 | 08/13/2015 4:11 PM | | | | | PST | | + + + + + documented in this encounter Progress Notes Khari Carl MD - 08/13/2015 4:48 PM PSTPatient returns follow-up left knee ACL recons truction 1 month out He is doing very well On exam he has excellent range of motion Small effusion No instability on exam We again went over the restrictions necessary to protect the reconstruction I discussed specific exercises for no work on Will return in 6 weeks Tdocumented in this encounter Plan of Treatment Not on filedocumented as of this encounter Visit Diagnoses + + | Diagnosis | + + | Postop check - Primary Follow-up examination, following unspecified surgery | + + documented in this encounter
--- OUTSIDE RECORDS SUMMARY | ~2020-03-11 | XMS | Encounter Summary ---
Demographics + + + | Address | [address] | | | [place] [address] | + + + | Home Phone | | + + + | Preferred Language | Unknown | + + + | Marital Status | Single | + + + | Nondenominational Affiliation | 1041 | + + + | Race | Unknown | + + + | Ethnic Group | Unknown | + + + Author + + + | Author | [facility] | | | and [place] | + + + | Organization | [facility] | | | and [place] | + + + | Address | Unknown | + + + | Phone | Unavailable | + + + Support + + + + + | Name | Relationship | Address | Phone | + + + + + | Vidal Aceves/Cristiana White | ECON | [address] | | | [place] | | [place] [address] | | + + + + + | Juan Carlos Mejia | ECON | Unknown | | + + + + + Care Team Providers + +------+ + | Care Mortgage Specialist Name | Role | Phone | + +------+ + | No, Physician | PCP | Unavailable | + +------+ + Reason for Visit + +--------+ + | Reason | Onset | Comments | | | Date | | + +--------+ + | Medication Refill | 07/28/ | | | | 2014 | | + +--------+ + Encounter Details +--------+--------+ + + + | Date | Type | Department | Care Team | Description | +--------+--------+ + + + | 07/28/ | Refill | [facility] | Khari Carl, | Medication Refill | | 2014 | | ORTHOPEDIC SURGERY | [address] | | | | | [address] | [place] | | | | | [place] | [address] | | | | | [address] | | | | | | [phone] | | | +--------+--------+ + + + [...] this encounter Miscellaneous Notes Telephone Encounter - RaiHelen Niyah - 07/29/2015 11:58 AM PSTCristiana babcock picked up r x with valid [id number] signed by Helen [place]wood at 07/29/2015 11:59 AM PSTTelephone Encounter - Helen [place]wood Niyah - 07/29/2015 10:20 AM PSTPatients mother w as notified [facility] rx is ready for picker with valid id. elephone Encounter - Yas Simms Cert MA - 07/13 9:[address]Willard cleveland to fill the medication requested. Rx prepared and sig chelsea by . Rx placed in the designated area for the patient picker. Please contact the patient to let the patient know that the Rx is ready. The patient will need to provide a form of ID when picking up the prescription. Please verify the patients ID at picker. elephon e Encounter - Helen Atwodo Niyah - 07/28/2015 3:12 PM PSTPatient called requesting a refill on his hydrocodone 10-325 mg. He stated it was okay for his mother Cristiana Hoff to picker the Rx.Electronically tray d by Helen Atwood at 07/28/2015 3:13 PM PSTdocumented in this encounter Plan of Treatment Not on filedocumented as of this encounter Visit Diagnoses Not on filedocumented in this encounter"
--- OUTSIDE RECORDS SUMMARY | ~2020-03-11 | XMS | Encounter Summary ---
Demographics + + + | Address | [address] | | | [place] [address] | + + + | Home Phone | | + + + | Preferred Language | Unknown | + + + | Marital Status | Single | + + + | Bahai Affiliation | [id number] | + + + | Race | Unknown | + + + | Ethnic Group | Unknown | + + + Author + + + | Author | [facility] | | | and [place] | + + + | Organization | [facility] | | | and [place] | + + + | Address | Unknown | + + + | Phone | Unavailable | + + + Support + + + + + | Name | Relationship | Address | Phone | + + + + + | Vidal Aceves/Cristiana White | ECON | [address] | | | [place] | | [place] [address] | | + + + + + | Juan Carlos Mejia | ECON | Unknown | | + + + + + Care Team Providers + +------+ + | Care Environmental Sampling Technician Name | Role | Phone | + +------+ + | No, Physician | PCP | Unavailable | + +------+ + Reason for Visit Auth/Cert +--------+--------+ + + + + | Status | Reason | Specialty | Diagnoses / | Referred By | Referred To | | | | | Procedures | Contact | Contact | +--------+--------+ + + + + | | | | Diagnoses | | Siddhartha, | | | | | Sprain of | | Khari Gan MD | | | | | anterior | | [address] | | | | | cruciate | | [place], | | | | | ligament of | | [place] [address] | | | | | knee, left, | | Phone: | | | | | initial | | [phone] | | | | | encounter | | Fax: | | | | | Sprain of | | [phone] | | | | | anterior | | | | | | | cruciate | | | | | | | ligament of | | | | | | | knee, left, | | | | | | | initial | | | | | | | encounter | | | | | | | [S83.512A] | | | | | | | Procedures | | | | | | | OK KNEE | | | | | | | SCOPE,AID | | | | | | | ANT CRUCIATE | | | | | | | REPAIR | | | +--------+--------+ + + + + Encounter Details +--------+ + + + + | Date | Type | Department | Care Team | Description | +--------+ + + + + | 07/11/ | Hospital | [facility] | Khari Carl, | ACL (anterior | | 2015 | Encounter | [facility] | MD Shilpa [address] | cruciate ligament) | | | | [address] | [place] | rupture, left, | | | | [place], [place] | [address] | initial encounter | | | | [address] | | (Primary Dx) | | | | [phone] | | | +--------+ + + + [...] + + + | Blood Pressure | 113/72 | 07/11/2015 4:29 PM | | | | | PDT | | + + + + + | Pulse | 74 | 07/11/2015 4:29 PM | | | | | PDT | | + + + + + | Temperature | 36.7 C (98.1 F) | 07/11/2015 2:33 PM | | | | | PDT | | + + + + + | Respiratory Rate | 16 | 07/11/2015 4:29 PM | | | | | PDT | | + + + + + | Oxygen Saturation | 98% | 07/11/2015 4:29 PM | | | | | PDT | | + + + + + | Inhaled Oxygen | - | - | | | Concentration | | | | + + + + + | Weight | 74.8 kg (165 lb) | 07/11/2015 9:00 AM | | | | | PDT | | + + + + + | Height | 177.8 cm (5' 10") | 07/11/2015 9:00 AM | | | | | PDT | | + + + + + | Body Mass Index | 23.68 | 07/11/2015 9:00 AM | | | | | PDT | | + + + + + documented in this encounter Discharge Instructions Instructions Khari Carl MD - 07/11/2015Use cold packs as needed for pain and swelling Ok to put weight on it with the crutches and a brace Ok to remove brace for range of motion stretches as you get more comfortable moving the jarod gan Keep dressings on and dry this weekend Call with any problems I want to see you next week for a wound check documented in this encounter Medications at Time of Discharge + + + +---------+ + + | Medication | Sig | Dispensed | Refills | Start | End Date | | | | | | Date | | + + + +---------+ + + | | Take 1-2 tablets by | 60 | 0 | 07/11/20 | | | HYDROcodone-acetamin | mouth every 4 hours | tablet | | 15 | 5 | | ophen (NORCO) 10-325 | as needed. | | | | | | mg per tablet | | | | | | + + + +---------+ + + | oxyCODONE (OXY-IR) | Take 1 capsule by | 30 | 0 | 07/11/20 | | | 5 MG capsule | mouth every 4 hours | capsule | | 15 | 5 | | | as needed (take one | | | | | | | to two every 4 hours | | | | | | | prn pain) for up to | | | | | | | 10 days. Don't mix | | | | | | | with alcohol. Don't | | | | | | | take if sedated or | | | | | | | confused | | | | | + + + +---------+ + + documented as of this encounter H&P Notes Khari Carl MD - 07/11/2015 11:17 AM PDTDiscussed again his care with him and his mom today The graft choices hamstring versus BTB autograft versus allograft outlined My bias in favor of autograft hamstrings with allograft if inadequate graft size is discuss ed with both The pros and cons of each choice discussed Again went over the risks of the surgery with reasonable expectations for recovery all outl ined Otherwise no change in history and physicalElectronically signed by Khari Carl MD at 1 11:19 AM Khari Brown MD - 07/09/2015 12:19 PM PDTFormatting of this note m ight be different from the original. History of present illness: Km is a 19 y.o. male who presents with a chief complaint of left knee injury Patient was injured while bull riding 3 weeks ago He caught his leg as he fell and felt and heard a pop He later had swelling and knee instability He was seen and evaluated including MRI scan and has a hinged range of motion brace and now presents for orthopedic assessment and recommendations He's had no previous injuries to this knee He denies any mechanical catching or locking episodes. He does not trust his knee as it rigoberto l buckle on him with change of direction He is otherwise healthy without any chronic medical problems He takes no medicines on a regular basis No past medical history on file. Past Surgical History Procedure Laterality Date Orthopedic surgery Right elbow. Tonsillectomy No Known Allergies Current Outpatient Prescriptions on File Prior to Visit Medication Sig Dispense Refill HYDROcodone-acetaminophen (NORCO) 5-325 mg per tablet Take 1-2 tablets by mouth every 6 hours as needed for Pain. 16 tablet 0 No current facility-administered medications on file prior to visit. History reviewed. No pertinent family history. History Social History Marital Status: Single Spouse Name: N/A Number of Children: N/A Years of Education: N/A Occupational History Not on file. Social History Main Topics Smoking status: Current Some Day Smoker -- 0.10 packs/day for 2 years Types: Cigarettes Smokeless tobacco: Current User Types: Chew Alcohol Use: 1.8 oz/week 3 Cans of beer per week Drug Use: Yes Special: Marijuana Sexual Activity: Not on file Other Topics Concern Not on file Social History Narrative Review of Systems Eyes: [ ] Double vision [ ] Glasses/contacts [ ] Failing vision Ear/Nose/Throat: [ ] Frequent Colds [ ] Sinus Disease [ ] Nose obstruction [ ] Sneezing Spells [ ] Change in taste [ ] Artificial teeth [ ] Ears ringing [ ] Ear pain [ ] Hearing loss [ ] Teeth problems [ ] Hoarseness [ ] Neck swelling [ ] Sore throat [ ] Congestion [ ] Nosebleeds [ ] Nasal allergies Respiratory: [ ] Asthma/Wheezing [ ] Pneumonia [ ] Night sweats [ ] Shortness of breath [ ] Chronic cough [ ] Coughing up blood [ ] Exposure to tuberculosis Cardiovascular: [ ] Heart Problems [ ] Hypertension [ ] Heart murmur [ ] Palpitations [ ] Rheumatic fever [ ] Phlebitis [ ] Chest pain [ ] Ankle swelling [ ] Leg cramps [ ] Racing heart [ ] Skipping beats [ ] Blood clots Gastrointestinal: [ ] Abdominal pain [ ] Heartburn [ ] Blood from rectum [ ] Colitis [ ] Gallbladder problems [ ] Trouble swallowing [ ] Bloated stomach [ ] Change in stools [ ] Vomiting blood [ ] Nausea [ ] Hemorrhoids [ ] Jaundice [ ] Hepatitis [ ] Diarrhea [ ] Constipation [ ] Diverticulitis Urinary Tract: [ ] Painful urination [ ] Kidney Stones [ ] Any urine leakage [ ] Weak urine stream [ ] Night urination [ ] Urine infections [ ] Bedwetting [ ] Blood in urine Skin: [ ] Skin rashes [ ] Itching/Burning [ ] Skin bruises easily [ ] Artificial tanning [ ] Skin cancer [ ] Hair loss [ ] Changes in moles Musculoskeletal: [ ] Physical handicaps [ ] Back or shoulder pain [ ]Rheumatoid disease [ ] Osteoarthritis [X] Joint pain [X] Joint swelling [ ]Gout [ ] Leg cramps at night Neurological: [ ] Headaches [ ] Seizures [ ] Stroke/TIA [ ] Faintness [ ] Tremors [ ] Numbness [ ] Dizziness [ ] Changes in handwriting [ ] Memory loss [ ] Shooting pains Psychiatric: [ ] Depression [ ] Suicidal thoughts [ ] Sleep pattern changes [ ] Appetite changes [ ] Recent counseling [ ] Nervousness/anxiety [ ] Physical violence [ ] Marital problems Endocrine: [ ] Thyroid [ ] Diabetes Systemic: [ ]Weight loss/gain (over 10 lbs) [ ]Fever/chills [ ]Fatigue [ ] Sleeping Difficulties [ ] Speech change [ ] Voice change Filed Vitals: 07/03/15 1059 PainSc: 2 PainLoc: Knee Estimated body mass index is 22.96 kg/(m^2) as calculated from the following: Height as of this encounter: 1.778 m (5' 10"). Weight as of this encounter: 72.576 kg (160 lb). Physical examination:Patient is alert and oriented and in no acute distress. Heart - RRR Lungs - clear Abdomen - soft and nontender Extremities - Left knee braces removed and his knee is examined Swelling is down Skin without rashes or lesions He's tender at the medial joint line He gaps open with stress on the medial collateral ligament He has a 2+ Duane No lateral joint line tenderness and no retropatellar compression tenderness I reviewed his MRI images and it shows an ACL rupture that appears to me to be off the femo ral attachment The MCL has signal consistent with sprain There is no meniscal pathology and no obvious chondral injury He does have a posterior lateral bone bruise of the tibia Assessment: ACL rupture left knee The natural history and treatment options are discussed at length In my opinion at his age and with his activity level he is not going to do well with an inc ompetent ACL I think the MCL injury makes the ACL instability worse but the MCL should heal nonoperative ly especially if we have good ACL stability The inherent risks of surgery and reasonable expectations for recovery including the total time necessary off from the riding to protect the repair We also discussed the possibility that he have primary repair of the ACL instead of reconst ruction with graft if at the time of surgery it appears to be viable We also discussed the timing of surgery and I think he has actually worked his way through the acute inflammatory phase already and has decent range of motion with minimal swelling He would like to proceed with scheduling as early as possible documented in this en counter Nursing Notes Samson Sotelo RN - 07/11/2015 4:28 PM PDTUp to chair without difficulty, denies Nausea or pain. documented in this e ncounter Miscellaneous Notes Plan of Care - Jimmy Coronado, PT - 07/11/2015 4:49 PM PDTProblem: General Plan of Care ( Adult, Obstetrics) Goal: Care Plan Shift Summary & Review . [facility] [address] [place] [address] Physical Therapy Note Date: 07/08/2015 Patient Information Patient Name: Km Hoff Date of : 1995 Age: 19 y.o. No diagnosis found. Date of Onset: Referring Provider: No ref. provider found Start Time: Stop time: Duration: minutes Pain Assessment 11/19 left knee SUBJECTIVE: Km Hoff is a 19 y.o. male who recently underwent outpatient surgery f or ACL reconstruction. At this time (1629) he is refusing crutch training and states, "I'm fine and dont need it." RN aware and ot did not receive any crutch training per his wishes. Weight Bearing Status: WBAT Previous Level of Function: Ambulatory with some Crutch training Living Situation / Home Environment: Unknown Electronically signed by: Jimmy Coronado PT, 07/11/2015 16:47 Patient Name: Km Hoff/: 1995/ p Note - Khari Carl MD - 07/11/2015 2:[address] [id number] OPERATIVE REPORT KHARI CARL MD Patient: KM HOFF Admitting: KHARI CARL MR #: [id number] LOC: PT TYPE: Adm Date: 07/11/2015 : 1995 DATE OF : 1995 DATE OF SURGERY: 07/11/2015 PREOPERATIVE DIAGNOSIS: Left knee anterior cruciate ligament rupture. POSTOPERATIVE DIAGNOSIS: Left knee ligament rupture. PROCEDURE PERFORMED: Left knee anterior cruciate ligament reconstruction with autogenous hamstrings double looped with Arthrex tightrope femoral fixation and Arthrex GraftBolt tibi al fixation. PROCEDURE IN DETAIL: After informed consent was obtained, the patient taken to the operat ing room and underwent a femoral nerve block followed by general anesthesia. He received 1 gram of Ancef IV prophylaxis. After sterile prep and drape, appropriate timeout and surgic al safety checklist completion, the limb was exsanguinated and an upper thigh tourniquet i nflated to 340 mmHg. An anterolateral scope portal was established, followed by a medial p ortal made under direct vision. Arthroscopic exam confirmed complete rupture of the ACL and it was not a femoral avulsion injury. This was not an ACL injury amenable to repair. An incision was made medial to the tibial tubercle centered over the pes fascia. Full-thickne ss subcutaneous dissection, allowing palpation of the SemiT and gracilis followed by an L-s haped takedown of the pes fascia, protecting the medial collateral ligament underneath and identifying both the semitendinosis and gracilis tendons under the pes. They were both ind ividually stripped out and prepared on the back table - both ends double looped with color coded nonabsorbable suture in a whipstitch manner. The graft was placed through an 8-mm si zer and felt snug but not too tight. Attention was then drawn back to the arthroscopic ex am. We thoroughly evaluated the inside of his knee and no other injuries were identified. His ACL remnant was removed, leaving a footprint on the tibia for later orientation. The lateral wall was completely cleaned off of soft tissue for better visualization and a mini mal lateral wall plasty was carried out. Using the [id number] positioning guide for medi al portal and placed the guide pin at around 2:00 position using the 5-mm over the top posi tioning guide. The guide pin was run out the lateral thigh and 8 mm reamer was reamed over this to a depth of 30 mm. We then placed a passing suture and parked it out the medial p ortal. Tibial alignment jig was then centered in the tibial stump and positioned at 55 mm angle. Guide pin was placed and this was felt to be in good position and 8 mm reamer was r eamed over this. We thoroughly cleaned out the tunnel, the entrance and exit and all bony debris removed. We then retrieved the passing suture from out the medial portal out the t ibial tunnel and then assembled the graft around that the femoral tightrope and marked the 30 mm trena on the graft. The graft was then passed into the knee. I had difficulty passin g the button out the side after repeated attempts, we abandoned this, removed the graft. I went up with the spade tip Beath pin again and went in and out multiple times to make charisma e that I was not binding on any soft tissue at the exit of the cortex. We thoroughly irrig ated out the knee and then repeated the process of getting a passing suture out the thigh, retrieving it through the tibial tunnel and then passing the graft. This time it was succe ssful in getting the button to pass, flip and had good fixation. We then pulled the graft up into the femur and seated it at the trena, cycled the knee repeatedly and then attention was drawn to the tibia. The GraftBolt fixation was chosen. A nitinol wire was placed in between the graft ends and the 8-mm dilator field felt tight and so the sheath for an 8-mm screw was placed. The screw was seated; however, when I went to remove the screwdriver it pulled the screw out as it was jammed into the screwdriver very tightly. I used the biters to nibble away any sheath prominent, flush with the opening in the tibia and open 9 mm sc rew and it had good fixation. It should be noted that the Duane was eliminated, the pivo t shift was eliminated but with arthroscopic exam it was confirmed there was no impingement on the lateral wall or the roof or the PCL. We thoroughly irrigated the knee. The portal s were closed with 4-0 Monocryl. The surgical wound was closed with 3-0 Vicryl and 4-0 Mon ocryl subcuticular. 30 mL of 0.25 percent Naropin and was injected into the wound and port als for postop analgesia to supplement the block. Sterile dressings were applied, held in place with a compression wrap from the foot to the upper thigh. His brace was put back on and he was stable to postanesthesia recovery. ESTIMATED BLOOD LOSS: Less than 10 mL KHARI CARL MD Dictated by KHARI CARL MD 07/11/2015 14:43:10 Transcribed on 07/12/2015 11:09:04 by job# [id number] Confirmation #: [id number] signed by Khari Carl MD at 07/12/2015 12:04 PM P DTBrief Op Note - Khari Carl MD - 07/11/2015 2:31 PM PDT Brief Operative Note Km Hoff 19 y.o. male 1995 [id number] Proc. Date 07/11/2015 Preop Dx Sprain of anterior cruciate ligament of knee, left, initial encounter [S83.512A] Postop Dx same Procedure Left Knee A.C.L. Reconstruction w/ Autograft and arthroscopy - Left Knee A.C.L. Reconstruction w/ Autograft and arthroscopy Anesthesia General Surgeon Khari Carl MD - Primary Counter Stacker EBL less than 50 mL Findings 100 percent rupture midsubstance ACL - no other pathology Complications none Specimens * No specimens in log * Drains Electronically signed by: Khari Carl MD 07/11/2015 14:31 [facility] Kh[facility] Carl MD at 06/14 2:32 PM PDTdocumented in this encounter Plan of Treatment Not on filedocumented as of this encounter Procedures + +--------+ + + + | Procedure Name | Priori | Date/Time | Associated Diagnosis | Comments | | | ty | | | | + +--------+ + + + | ARTHROSCOPY KNEE W/ | | 07/11/2015 | Sprain of anterior | | | REPAIR ACL | | 11:27 AM | cruciate ligament | | | | | PDT | of knee, left, | | | | | | initial encounter | | + +--------+ + + + +---+--------+ | | | | | Specia | | | l | | | Needs | | | | | | Arthre | | | x, | | | Tib-Te | | | ndon | | | Allogr | | | aft | | | (on | | | hold) | +---+--------+ documented in this encounter Visit Diagnoses + + | Diagnosis | + + | ACL (anterior cruciate ligament) rupture, left, initial encounter - Primary | + + documented in this encounter Administered Medications + +---------+ +------+------+------+ | Medication Order | MAR | Action | Dose | Rate | Site | | | Action | Date | | | | + +---------+ +------+------+------+ | lactated ringers (LR) infusion | New Bag | 07/11/20 | | | | | at 10-100 mL/hr, Intravenous, | | 15 11:22 | | | | | CONTINUOUS, Starting 07/11/15 | | AM PDT | | | | | at 1015, TKO., Pre-op | | | | | | + +---------+ +------+------+------+ +---------+ +--------+ +---+ | New Bag | 07/11/20 | 1,000 | 50 mL/hr | | | | 15 10:06 | mLs | | | | | AM PDT | | | | +---------+ +--------+ +---+ +---+---+ | | | +---+---+ + +-------+ +------+---+---+ | ondansetron (ZOFRAN) injection | Given | 07/11/20 | 4 mg | | | | 4 mg 4 mg, Intravenous, ONCE | | 15 3:27 | | | | | PRN, Nausea, Starting Fri | | PM PDT | | | | | 07/11/15 at 1419, For 1 dose, | | | | | | | Recovery/Phase I | | | | | | + +-------+ +------+---+---+ +---+---+ | | | +---+---+ documented in this encounter
--- OUTSIDE RECORDS SUMMARY | ~2020-03-11 | XMS | Encounter Summary ---
Demographics + + + | Address | [address] | | | [place] [address] | + + + | Home Phone | | + + + | Preferred Language | Unknown | + + + | Marital Status | Single | + + + | Tenriism Affiliation | 1041 | + + + | Race | Unknown | + + + | Ethnic Group | Unknown | + + + Author + + + | Author | [facility] | | | and [place] | + + + | Organization | [facility] | | | and [place] | + + + | Address | Unknown | + + + | Phone | Unavailable | + + + Support + + + + + | Name | Relationship | Address | Phone | + + + + + | Vidal Aceves/Cristiana White | ECON | [address] | | | [place] | | [place] [address] | | + + + + + | Juan Carlos Mejia | ECON | Unknown | | + + + + + Care Team Providers + +------+ + | Care Fourdrinier Tender Name | Role | Phone | + +------+ + PCP | Unavailable | + +------+ + Encounter Details +--------+ + + + + | Date | Type | Department | Care Team | Description | +--------+ + + + + | 07/09/ | Hospital | [facility] | Paulina Finn | | | 2012 | Encounter | [facility] | [address] | | | | | CENTER [address] | [place], [place] | | | | | [place], [place] | [address] | | | | | [address] | | | | | | [phone] | | | +--------+ + + + [...] documented as of this encounter ED Notes Paulina Finn MD - 07/10/2013 12:36 AM PDT [facility] [place] [place] [id number] Patient Name: KM MARR Provider: Unit #: [id number] Location: : 1995 DATE: 07/09/2013 HISTORY OF PRESENT ILLNESS: The patient is an 17-year-old male, who comes in with chief co mplaint of right ankle pain. Apparently, he twisted his ankle while playing basketball abou t an hour and a half ago. He has not been able ambulate on it since then. REVIEW OF SYSTEMS He is denying any tingling or numbness distally. He is unable to weight bear due to pain. PAST MEDICAL HISTORY: Significant for no medical problems. MEDICATIONS He takes no routine medications. ALLERGIES: HE HAS NO KNOWN DRUG ALLERGIES. PHYSICAL EXAMINATION VITAL SIGNS: The patient's vital signs are stable. Temperature is 96.8, respiratory rate 2 0, heart rate 80, blood pressure 111/61. He is 98% on room air. GENERAL: The patient is alert, he appears to be in no acute distress. EXTREMITIES: Focused examination of the patient's right ankle. He has quite a bit of swell ing to the lateral aspect of the ankle and tenderness to the right lateral malleolus. He ca n flex and extend, which is tender, but it is most tender for him to invert ankle. His foot is completely normal on inspection with no swelling or injury. Leg is normal inspection an d knee is normal inspection, the patient had a right ankle x-ray that showed no acute proce ss. The patient's x-ray was read by me and was interpreted negative for fracture. DIAGNOSIS RIGHT ANKLE SPRAIN. PLAN: He is given a stirrup splint and is to use crutches only for the next few days. He c an then begin weightbearing as tolerated. Aleve or Motrin as needed and he was given a smal l prescription for some [place] for pain. The patient voiced understanding of his discharge i nstructions and ambulated from the ER without difficulty. DICTATED BY: Tariq Finn DO Emergency Medicine JOB #: [id number] EXT JOB #:[id number] <<Signature on File>> Nhung Bonner O109/26/12 1447 < documented in this encounter Plan of Treatment Not on filedocumented as of this encounter Procedures + +--------+ + + + | Procedure Name | Priori | Date/Time | Associated Diagnosis | Comments | | | ty | | | | + +--------+ + + + | XR ANKLE RIGHT 3 + | Routin | 07/10/2013 | | Results for this | | VW | e | 9:18 AM | | procedure are in the | | | | PDT | | results section. | + +--------+ + + + documented in this encounter Results XR Ankle Right 3 + Vw (07/10/2013 9:18 AM PDT) + + | Specimen | + + | | + + + + + | Narrative | Performed At | + + + | [facility] Diagnostic Imaging | [facility] | | Department [address] [facility] [address] | [facility] | | [ rep [address]] [ rep [facility] | | [facility]] Signed | - IMAGING | | | | | Patient Name: KM MARR Physician: | | | BERONICA : 1995 Age: 17 Sex: M Unit #: [id number] | | | Exam Date: 07/09/13 Location: ER | | | Report #: [id number] Page: | | | %(RAD)RES..mtdd.print.filter("pg") of %(RAD) | | | RES..mtdd.print.filter("tpg") | | | | | | Accession Number: [id number] | | | RIGHT ANKLE X-RAY CLINICAL HISTORY: BASKETBALL INJURY. | | | COMPARISON: None. FINDINGS: Three | | | views of the right ankle were obtained. There is no evidence for acute | | | fracture or dislocation. Bone mineralization is normal. Significant | | | lateral soft tissue swelling is observed. IMPRESSION: | | | 1. NO ACUTE OSSEOUS ABNORMALITIES. 2. | | | SIGNIFICANT LATERAL SOFT TISSUE SWELLING. Dictated | | | Date/Time: 07/10/2013 09:18 Transcribed Date/Time: 07/10/2013 | | | 09:41 Specialist Icu: <<Signature | | | on File>> | | | Jethro | | | MD Vinicius07/10/13 1028 <Electronically signed by Jethro Colvin MD> | | | Jethro Colvin MD 07/10/1318 Specialist Icu: Sandro | | | Kcmlmfxaecztx21/29/13 0941 | | + + + + + + + + | Performing | Address | City/State/Zipcode | Phone Number | | Organization | | | | + + + + + | [facility] | [address] | [place] | [phone] | | [facility] | | [address] | | | - IMAGING | | | | + + + + + documented in this encounter Visit Diagnoses Not on filedocumented in this encounter
--- OUTSIDE RECORDS SUMMARY | ~2020-03-11 | XMS | Clinical Summary ---
Demographics + + + | Address | [address] | | | [place] [address] | + + + | Home Phone | | + + + | Preferred Language | Unknown | + + + | Marital Status | Single | + + + | Church Affiliation | 1041 | + + + | Race | Unknown | + + + | Ethnic Group | Unknown | + + + Author + + + | Author | [facility] | | | and [place] | + + + | Organization | [facility] | | | and [place] | + + + | Address | Unknown | + + + | Phone | Unavailable | + + + Support + + + + + | Name | Relationship | Address | Phone | + + + + + | Vidal Aceves/Cristiana White | ECON | [address] | | | [place] | | [place] [address] | | + + + + + | Juan Carlos Mejia | ECON | Unknown | | + + + + + Care Team Providers + +------+ + | Care Bed Manager Name | Role | Phone | + +------+ + | No, Physician | PCP | Unavailable | + +------+ + Allergies + + + + + + | Active Allergy | Reactions | Severity | Noted | Comments | | | | | Date | | + + + + + + | Ketamine | Other (See Comments) | | 02/05/20 | "doesn't come out | | | | | 20 | of it for a really | | | | | | long time" | + + + + + + Medications + + + +---------+------+------+-------+ | Medication | Sig | Dispensed | Refills | Star | End | Statu | | | | | | t | Date | s | | | | | | Date | | | + + + +---------+------+------+-------+ | cyclobenzaprine | take 1 tablet by | | 0 | 01/0 | | Activ | | (FLEXERIL) 5 MG | mouth every 6 hours | | | 4/20 | | e | | tablet | if needed | | | 17 | | | + + + +---------+------+------+-------+ | ibuprofen (ADVIL, | Take 600 mg by mouth | | 0 | | | Activ | | MOTRIN) 200 mg | Twice daily as | | | | | e | | tablet | needed for Pain. | | | | | | + + + +---------+------+------+-------+ Active Problems + + + | Problem | Noted Date | + + + | Anterior dislocation of right humerus | 03/24/2017 | + + + | Instability of right shoulder joint | 03/24/2017 | + + + | ACL (anterior cruciate ligament) rupture, left, initial encounter | 07/12/2015 | + + + + + | Overview: Problem list ancillary specialist utility | + + Encounters +--------+ + + + + | Date | Type | Specialty | Care Team | Description | +--------+ + + + + | 02/04/ | Emergency | Emergency Medicine | Mayank, | Cervical strain, | | 2019 | | | MD Dino | acute, initial | | | | | | encounter (Primary | | | | | | Dx); Tension | | | | | | headache; Upper back | | | | | | strain, initial | | | | | | encounter | +--------+ + + + + | 02/04/ | Clinical | Immediate Care | Antonette, | Patient left after | | 2020 | Support | | AURELIANO Naidu | triage (Primary Dx) | +--------+ + + + + from Last 3 Months Social History + + + +--------+------+ | [...] | | | + +------+---+---+ + + | Tobacco Cessation: Ready to Quit: No | + + + + +---------+ + | Alcohol Use | Drinks/Week | oz/Week | Comments | + + +---------+ + | Yes | 3 Cans of beer | 3.0 | | + + +---------+ + + + + | Sex Assigned at | Date Recorded | | | | + + + | Not on file | | + + + Last Filed Vital Signs + + + [...] | | + + + + + Plan of Treatment + + +-------+ + | Health Maintenance | Due Date | Last | Comments | | | | Done | | + + +-------+ + | Vaccine: | | | | | Dtap/Tdap/Td (1 - | 4 | | | | Tdap) | | | | + + +-------+ + | Vaccine: Influenza | | | | | (Season Ended) | 0 | | | + + +-------+ + Implants + +--------+--------+ +--------+--------+--------+ | Implanted | Type | Area | Manufacture | Device | Shelf | Model | | | | | r | | Expira | / | | | | | | Identi | tion | Serial | | | | | | fier | Date | / Lot | + +--------+--------+ +--------+--------+--------+ | Toxey Sut-Rubin Biocomp 3.0 - | Generi | Right: | [employer] | | 06/11/ | AR-193 | | [id number]: Qty: 2 on | c | | - ARTX | | 2016 | 4BCFT | | 12/17/2015 by Hussain, | | Should | | | | / | | Griffin Aceves DO at [facility] | | er | | | | /[id number] | | [facility] | | | | | | 4 | | [facility] | | | | | | | + +--------+--------+ +--------+--------+--------+ | Toxey Sut-Rubin [employer]ocomp 3.0 - | Generi | Right: | [employer] | | 06/11/ | AR-193 | | [id number]: Qty: 1 on | c | | - ARTX | | 2016 | 4BCFT | | 12/17/2015 by Hussain, | | Should | | | | / | | Griffin Aceves DO at [facility] | | er | | | | /[id number] | | [facility] | | | | | | 4 | | CENTER | | | | | | | + +--------+--------+ +--------+--------+--------+ | Tightrope Rt Acl - | | Left: | [employer] | | / | AR-158 | | [id number]: Qty: 1 on | | Knee | - ARTX | | 2019 | 8RT / | | 07/11/2015 by Khari Carl | | | | | | /[id number] | | MD Niyah at [facility] | | | | | | 7 | | [facility] | | | | | | | + +--------+--------+ +--------+--------+--------+ | Tibial Graftbolt 8mm - | | Left: | [employer] | | 05/11/ | AR-510 | | [id number]: Qty: 1 on | | Knee | - ARTX | | 2018 | 0-08 / | | 07/11/2015 by Khari Carl | | | | | | | | MD Niyah at [facility] | | | | | | /[id number] | | [facility] | | | | | | 22 | + +--------+--------+ +--------+--------+--------+ | Tibial Graftbolt 8mm - | | Left: | [employer] | | 07/12/ | AR-510 | | [id number]: Qty: 1 on | | Knee | - ARTX | | 2018 | 0-08 / | | 07/11/2015 by Khari Carl | | | | | | | | MD Niyah at [facility] | | | | | | /[id number] | | [facility] | | | | | | 71 | + +--------+--------+ +--------+--------+--------+ Procedures + +--------+ + + + | [...] section. | + +--------+ + + + from Last 3 Months Results XR Thoracic Spine 2 Vw (02/05/2020 [...] + + | XR THORACIC SPINE 2 VW 02/05/2020 10:29 AM HISTORY: TRAUMA NECK | [...] | | | The parapharyngeal, retropharyngeal, and safety investigator/cause analyst spaces are | | | normal. The [...] | Dominic, Rad Results In - 02/05/2020 11:[address] ANGIOGRAM HEAD [...] cavity is unremarkable. The parapharyngeal, retropharyngeal, and safety investigator/cause analyst | |spaces are normal. The parotid glands [...] | | | + +---------+ + + CBC with Differential (02/05/2020 9:52 AM PDT) + +-------+ + + + | Component | Value | Ref Range | Performed | Pathologist | | | | | At | Signature | + +-------+ + + + | WBC | 7.8 | 4.0 - 11.0 K/uL | [facility] | | | | | | [facility] | | | | | | [facility] | | | | | | [facility] - | | | | | | LABORATORY | | + +-------+ + + + | RBC | 5.27 | 4.30 - 5.70 | [facility] | | | | | M/uL | [facility] | | | | [...] | | Monocytes | | K/uL | [facility] | | | | | | MEDICAL | | | | | | CENTER - | | | | | | LABORATORY | | + +-------+ + + + | Absolute | 0.37 | 0.00 - 0.40 | [facility] | | | Eosinophils | | K/uL | [facility] | | | | | | MEDICAL | | | | | | CENTER - | | | | | | LABORATORY | | + +-------+ + + + | Absolute | 0.03 | 0.00 - 0.10 | [facility] | | | Basophils | | K/uL | [facility] | | | | | [...] | | nRBC | | K/uL | [facility] | | | [...] | + + + + + | [facility] | [address] | [place] | [phone] | | [facility] | | [address] | | | - LABORATORY | | | | + + + + + Comprehensive Metabolic Panel (02/05/2020 9:52 [...] (H) | 60 - 106 mg/dL | [facility] | | [facility] | | [facility] | | | | | | MEDICAL | | | | | | CENTER - | | | | | | LABORATORY | | + + + + + + | BUN | 17 | 9 - 23 mg/dL | [facility] | | | | | | [facility] | | | | | | MEDICAL | | | | | | CENTER - | | | | | | LABORATORY | | + + + + + + | Creatinine | 1.05 | 0.70 - 1.30 | [facility] | | | | | mg/dL | [facility] | | | | | | MEDICAL | | | | | | CENTER - | | | | | | LABORATORY | | + + + + + + | eGFR if not | >60Comment: GLOMERULAR | >=60 | [facility] | | | | FILTRATION | mL/min/1.73m2 | [facility] | | | UZBEK | RATE,ESTIMATED | | MEDICAL | | | | mL/min/1.68i4Bqfd than | | CENTER - | | [...] | 9.6 | 8.7 - 10.4 | [facility] | | | | | mg/dL | [facility] | | | | | | MEDICAL | | | | | | CENTER - | | | | | | LABORATORY | | + + + + + + | Albumin | 4.5 | 3.2 - 4.8 g/dL | [facility] | | | | | | [facility] | | | | | | MEDICAL | | | | | | CENTER - | | | | | | LABORATORY | | + + + + + + | Bilirubin | 0.8 | 0.3 - 1.2 mg/dL | [facility] | | | Total | | | [facility] | | | | [...] | | ine Ratio | | | [facility] [...] + + | [facility] | [address] | [place] | [phone] | | [facility] | | [address] | | | - LABORATORY | | | | + + + + + from Last 3 Months Insurance +-------+--------+ +--------+-------+---------+------+ | Payer | Benefi | Subscriber | Effect | Phone | Address | Type | | | t Plan | ID | rosalind | | | | | | / | | Dates | | | | | | Group | | | | | | +-------+--------+ +--------+-------+---------+------+ | BCBS | BCBS | [id number] | 02/11/20 | | | PPO | | | OOS | 1 | 10-Pre | | | | | | PPO | | sent | | | | +-------+--------+ +--------+-------+---------+------+ + +--------+ +--------+ + + | Guarantor Name | Accoun | Relation to | Date | Phone | Billing Address | | | t Type | Patient | of | | | | | | | | | | + +--------+ +--------+ + + | [address] | Person | Self | [birth year] | [address] | | | [place] | | 1995 | [phone] | [place] [address] | | | alis | | | 3 (Home) | | + +--------+ +--------+ + + Advance Directives + + + + + | Type | Date Recorded | Patient | Explanation | | | | Building Certifier | | + + + + + | Power of | | | | | [employer] | | | | + + + + + | Advance | 09/13/2014 6:51 | | | | Directive | PM | | | + + + + + + + + + + | Code Status | Date | Date | Comments | | | Activated | Inactivated | | + + + + + | Full Code | 12/17/2015 | 12/17/2015 | | | | 9:47 AM | 1:35 PM | | + + + + + + + + +---+ | | | | | + + + +---+ | Full Code | 07/11/2015 | 07/11/2015 | | | | 3:15 PM | 7:01 PM | | + + + +---+
--- OUTSIDE RECORDS SUMMARY | ~2020-03-11 | XMS | Encounter Summary ---
Demographics + + + | Address | [address] | | | [place] [address] | + + + | Home Phone | | + + + | Preferred Language | Unknown | + + + | Marital Status | Single | + + + | Methodist Affiliation | 1041 | + + + | Race | Unknown | + + + | Ethnic Group | Unknown | + + + Author + + + | Author | [facility] | | | and [place] | + + + | Organization | [facility] | | | and [place] | + + + | Address | Unknown | + + + | Phone | Unavailable | + + + Support + + + + + | Name | Relationship | Address | Phone | + + + + + | Vidal Aceves/Cristiana White | ECON | [address] | | | [place] | | [place] [address] | | + + + + + | Juan Carlos Mejia | ECON | Unknown | | + + + + + Care Team Providers + +------+ + | Care Caustic Preparer Name | Role | Phone | + +------+ + | No, Physician | PCP | Unavailable | + +------+ + Reason for Referral Diagnostic/Screening (Routine) +--------+--------+ + + + + | Status | Reason | Specialty | Diagnoses / | Referred By | Referred To | | | | | Procedures | Contact | Contact | +--------+--------+ + + + + | Closed | | Radiology | Diagnoses | Brown, | [facility] | | | | | Injury to | Steven Pompa, | [address] | | | | | multiple | MD [address] | [place], | | | | | structures | [address] | [place] | | | | | of left | [facility] | [address] | | | | | knee, | [place], | Phone: | | | | | initial | [place] | [phone] | | | | | encounter | [address] | Fax: | | | | | Procedures | Phone: | [phone] | | | | | MRI Knee | [phone] | | | | | | Left wo | Fax: | | | | | | Contrast | [phone] | | +--------+--------+ + + + + Reason for Visit + + + | Reason | Comments | + + + | Knee Injury | | + + + Encounter Details +--------+ + + + + | Date | Type | Department | Care Team | Description | +--------+ + + + + | 06/22/ | Emergency | [facility] | Steven Guaman, | Acute internal | | 2015 | | [facility] | MD [address] | derangement of left | | | | CENTER [address] | [facility] [place] | knee (Primary Dx) | | | | [place] | [place], [place] [address] | | | | | [address] | [phone] | | | | | [phone] | | | +--------+ + + + [...] + + + | Blood Pressure | 130/75 | 06/22/2015 7:13 PM | | | | | PDT | | + + + + + | Pulse | 77 | 06/22/2015 7:13 PM | | | | | PDT | | + + + + + | Temperature | 37.2 C (99 F) | 06/22/2015 7:13 PM | | | | | PDT | | + + + + + | Respiratory Rate | 16 | 06/22/2015 7:13 PM | | | | | PDT | | + + + + + | Oxygen Saturation | 96% | 06/22/2015 7:13 PM | | | | | PDT | | + + + + + | Inhaled Oxygen | - | - | | | Concentration | | | | + + + + + | Weight | 72.6 kg (160 lb) | 06/22/2015 7:13 PM | | | | | PDT | | + + + + + | Height | 177.8 cm (5' 10") | 06/22/2015 7:13 PM | | | | | PDT | | + + + + + | Body Mass Index | 22.96 | 06/22/2015 7:13 PM | | | | | PDT | | + + + + + documented in this encounter Discharge Instructions Instructions Steven Guaman MD - 06/22/2015Ice and elevation Crutches, nonweightbearing Wear the knee brace while awake Outpatient MRI Scheduled ibuprofen [place] for severe pain Follow-up with orthopedics AttachmentsThe following attachments cannot be sent through Care Everywhere.MEDIAL COLLATER AL LIGAMENT (MCL) PROBLEMS, TREATING (TUNISIAN)documented in this encounter Medications at Time of Discharge + + + +---------+ + + | Medication | Sig | Dispensed | Refills | Start | End Date | | | | | | Date | | + + + +---------+ + + | | Take 1-2 tablets by | 16 | 0 | 06/22/20 | | | HYDROcodone-acetamin | mouth every 6 hours | tablet | | 15 | 5 | | ophen (NORCO) 5-325 | as needed for Pain. | | | | | | mg per tablet | | | | | | + + + +---------+ + + | ibuprofen | Take 1 tablet by | 20 | 0 | 06/22/20 | | | (ADVIL,MOTRIN) 600 | mouth every 6 hours | tablet | | 15 | 5 | | MG tablet | as needed for Pain | | | | | | | for up to 5 days. | | | | | + + + +---------+ + + documented as of this encounter ED Notes Andre Lux RN - 06/22/2015 8:33 PM PDTDc from ambulatory with famly. Instruction s given to pt both verbally and inwrittign. Pt signed indicating that he received acopy of his instrutions in [facility] at time of dc. Electronically signed by Andre Lux RN at 1 8:34 PM Steven Payton MD - 06/22/2015 7:23 PM PDT [facility] Km Hoff Emergency Department Encounter Note [address] [place] [address] PCP:No Physician on file [phone] CHIEF COMPLAINT Chief Complaint Patient presents with Knee Injury HPI Km Hoff is a 19 y.o. male who presents to the emergency department with left knee pain. 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 He went to get off the bull and his spur caught in the ro pe. His body was turning one way and is left leg was hung up in the rope. When he fell to the ground he had immediate severe pain in the left knee. He was able to walk on it but it felt very unstable. Most of the pain is focused on the medial aspect of the knee. No prior knee surgeries. No significant prior knee injuries. He is providing his own history. He denies any other injuries. PAST MEDICAL HISTORY History reviewed. No pertinent past medical history. SURGICAL HISTORY Past Surgical History Procedure Laterality Date Orthopedic surgery Right elbow. Tonsillectomy CURRENT MEDICATIONS Discharge Medication List as of 06/22/2015 20:21 ALLERGIES No Known Allergies FAMILY HISTORY No family history on file. SOCIAL HISTORY History Social History Marital Status: Single Spouse Name: N/A Number of Children: N/A Years of Education: N/A Social History Main Topics Smoking status: Current Some Day Smoker -- 0.10 packs/day for 2 years Types: Cigarettes Smokeless tobacco: Current User Types: Chew Alcohol Use: 1.8 oz/week 3 Cans of beer per week Drug Use: Yes Special: Marijuana Sexual Activity: None Other Topics Concern None Social History Narrative REVIEW OF SYSTEMS All systems reviewed and found negative except what is in the HPI PHYSICAL EXAM VITAL SIGNS: BP 130/75 mmHg | Pulse 77 | Temp(Src) 37.2 C (99 F) (Oral) | Resp 16 | Ht 1.778 m (5' 10") | Wt 72.576 kg (160 lb) | BMI 22.96 kg/m2 | SpO2 96% Constitutional: Well developed, Well nourished, No acute distress, Non-toxic appearance. HENT: Normocephalic, Atraumatic, Bilateral external ears normal, Mucous membranes are mois t, Nasal mucosa is normal. Eyes: PERRL, EOMI, Conjunctiva normal, No discharge. Palpebral conjunctiva are pink. Neck: Normal range of motion, No tenderness, Supple, No stridor. Respiratory: No respiratory distress, No wheezing Cardiovascular: Normal heart rate, Normal rhythm Extremities: Warm and well perfused, no edema, no joint swelling or deformity. Limited ra nge of motion left knee secondary to pain. In particular straightening the knee causes dottie re pain. There is no obvious ligament laxity but he is guarding. There is definite tendern ess to palpation over the medial collateral ligament. Back: No CVAT, No tenderness of the thoracic or lumbar spine. Skin: Warm, Dry, No erythema, No induration, No rash. Neurologic: Alert & oriented x 3, No focal motor or sensory deficits. Speech is clear. G ait is antalgic. RADIOLOGY Left knee x-ray: Shows an effusion but no fractures or dislocations. ED COURSE & MEDICAL DECISION MAKING Pertinent Labs & Imaging studies reviewed. (See chart for details) The patient was seen and examined shortly after arriving in the emergency department. Hist ory and physical were obtained, vital signs were noted. This patient has an acute left knee injury. His knee feels unstable. I am treating him with a knee immobilizer and crutches. Outpatient MRI and follow-up is indicated. FINAL IMPRESSION 1. Acute internal derangement of left knee PLAN Follow-up Information Follow up with Khari Carl MD. Schedule an appointment as soon as possible for a visi t in 1 week. Specialty: Orthopedic Surgery Contact information: [address] [place] [address] [phone] Discharge Medication List as of 06/22/2015 20:21 START taking these medications Details HYDROcodone-acetaminophen (NORCO) 5-325 mg per tablet Take 1-2 tablets by mouth every 6 aust[place] rs as needed for Pain.Disp-16 tablet, R-0, Print ibuprofen (ADVIL,MOTRIN) 600 MG tablet Take 1 tablet by mouth every 6 hours as needed for P ain for up to 5 days.Disp-20 tablet, R-0, Print Steven Guaman MD 06/22/15 [id number] docume nted in this encounter Miscellaneous Notes ED Triage Notes - Sylvia Sanitago RN - 06/22/2015 7:13 PM PDTPt c/o left knee pain afte r hurting it today while bull riding. Electronically signed by Sylvia Santiago RN at 06/22 7:13 PM PDTdocumented in this encounter Plan of Treatment Not on filedocumented as of this encounter Procedures + +--------+ + + + | Procedure Name | Priori | Date/Time | Associated Diagnosis | Comments | | | ty | | | | + +--------+ + + + | XR KNEE LEFT 1 - 2 | STAT | 06/22/2015 | | Results for this | | VW | | 7:41 PM | | procedure are in the | | | | PDT | | results section. | + +--------+ + + + documented in this encounter Results MRI Knee Left wo Contrast (06/26/2015 10:29 AM PDT) + + | Specimen | + + | | + + + + + | Narrative | Performed At | + + + | MRI KNEE LEFT WO CONTRAST. 06/26/2015 9:50 AM HISTORY: left | [facility] | | knee pain and instability. Injury while bull riding. COMPARISON: | | | Left knee x-ray 06/22/2015 TECHNIQUE: Multiplanar, | | | multisequence MRI images of the left knee were obtained. FINDINGS: | | | There is a joint effusion. There is a medial plica band. | | | Superior lateral plica band is also seen. There is patella humera. | | | Fluid collection is seen deep to the tibial insertion of the | | | patellar tendon, particularly laterally, compatible with fluid in the | | | deep infrapatellar bursal fluid space. Extensor tendon mechanism is | | | otherwise unremarkable. There is extensive inflammatory change | | | along the anterior medial aspect of the knee extending anteriorly , | | | centered overlying the medial patellar retinaculum , with abnormality | | | of the fibers of the medial patellar retinaculum, compatible with | | | severe sprain . The lateral patellar retinaculum is within normal | | | limits. There is disruption of the posterior fibers of the ACL, | | | compatible with ACL tear. The PCL is within normal limits. | | | Signal change is seen in some of the fibers of the MCL, compatible | | | with sprain. The fibular collateral ligament and IT band are | | | within normal limits. The medial meniscus is within normal limits. | | | The lateral meniscus is within normal limits. The cartilage of | | | the medial and lateral femoral tibial joint compartments is within | | | normal limits. Mild signal change is seen at the patellar apex and | | | extending into the medial patellar retinacular cartilage, suggestive | | | of focal mild chondromalacia. There is a focal area of mild bone | | | marrow edema at the posterior lateral corner of the tibial plateau, | | | of uncertain etiology. Fluid signal is seen centrally within Hoffa's | | | fat pad, compatible with inflammation. Inflammatory change is | | | seen in the lateral head of the gastrocnemius near the insertion at | | | the femur, compatible with strain. IMPRESSION - ACL | | | tear. MCL sprain. Severe sprain of the medial patellar retinaculum. | | | Joint effusion. Small focal area of bone marrow edema at the | | | posterior lateral corner of the tibial plateau. Mild sprain of | | | insertion of the lateral head of the gastrocnemius. Inflammation of | | | Hoffa's fat pad. Dictated and Signed by: Aubrey Lerma MD | | | Electronically signed: 06/26/2015 11:41 AM | | + + + + + | Procedure Note | + + | Dominic, Rad Results In - 06/26/2015 11:44 AM PDT MRI KNEE LEFT WO CONTRAST. 06/26/2015 | | 9:50 AMHISTORY: left knee pain and instability. Injury while bull riding.COMPARISON: | | Left knee x-ray 06/22/2015TECHNIQUE: Multiplanar, multisequence MRI images of the left | | knee were obtained.FINDINGS:There is a joint effusion. There is a medial plica band. | | Superior lateralplica band is also seen.There is patella humera. Fluid collection is seen | | deep to the tibial insertion ofthe patellar tendon, particularly laterally, compatible | | with fluid in the deepinfrapatellar bursal fluid space. Extensor tendon mechanism is | | otherwiseunremarkable.There is extensive inflammatory change along the anterior medial | | aspect of theknee extending anteriorly , centered overlying the medial patellar | | retinaculum ,with abnormality of the fibers of the medial patellar retinaculum, | | compatiblewith severe sprain . The lateral patellar retinaculum is within normal | | limits.There is disruption of the posterior fibers of the ACL, compatible with | | ACLtear.The PCL is within normal limits.Signal change is seen in some of the fibers of | | the MCL, compatible with sprain.The fibular collateral ligament and IT band are within | | normal limits.The medial meniscus is within normal limits.The lateral meniscus is within | | normal limits.The cartilage of the medial and lateral femoral tibial joint compartments | | iswithin normal limits. Mild signal change is seen at the patellar apex andextending | | into the medial patellar retinacular cartilage, suggestive of focalmild | | chondromalacia.There is a focal area of mild bone marrow edema at the posterior lateral | | cornerof the tibial plateau, of uncertain etiology.Fluid signal is seen centrally within | | Hoffa's fat pad, compatible withinflammation. Inflammatory change is seen in the | | lateral head of the gastrocnemius near theinsertion at the femur, compatible with | | strain. IMPRESSION -ACL tear.MCL sprain.Severe sprain of the medial patellar | | retinaculum.Joint effusion.Small focal area of bone marrow edema at the posterior | | lateral corner of thetibial plateau.Mild sprain of insertion of the lateral head of the | | gastrocnemius.Inflammation of Hoffa's fat pad.Dictated and Signed by: Aubrey Lerma, | | Electronically signed: 06/26/2015 11:41 AM | | | |The fibular collateral ligament and IT band are within normal limits. | | | |The medial meniscus is within normal limits. | |The lateral meniscus is within normal limits. | | | |The cartilage of the medial and lateral femoral tibial joint compartments is | |within normal limits. Mild signal change is seen at the patellar apex and | |extending into the medial patellar retinacular cartilage, suggestive of focal | |mild chondromalacia. | |There is a focal area of mild bone marrow edema at the posterior lateral corner | |of the tibial plateau, of uncertain etiology. | |Fluid signal is seen centrally within Hoffa's fat pad, compatible with | |inflammation. | |Inflammatory change is seen in the lateral head of the gastrocnemius near the | |insertion at the femur, compatible with strain. | | | | | | | |IMPRESSION - | |ACL tear. | |MCL sprain. | |Severe sprain of the medial patellar retinaculum. | |Joint effusion. | |Small focal area of bone marrow edema at the posterior lateral corner of the | |tibial plateau. | |Mild sprain of insertion of the lateral head of the gastrocnemius. | |Inflammation of Hoffa's fat pad. | | | |Dictated and Signed by: Aubrey Lerma MD | | Electronically signed: 06/26/2015 11:41 AM | + + + +---------+ + + | Performing | Address | City/State/Zipcode | Phone Number | | Organization | | | | + +---------+ + + | [facility] | | | | + +---------+ + + XR Knee Left 1 - 2 Vw (06/22/2015 7:41 PM PDT) + + | Specimen | + + | | + + + + + | Narrative | Performed At | + + + | XR KNEE LEFT 1 - 2 VW 06/22/2015 7:32 PM HISTORY: KNEE INJURY. | [facility] | | COMPARISON: None. FINDINGS: There are no acute osseous | | | findings. No significant degenerative changes are seen. Bone | | | mineralization is normal. There is no significant effusion. Soft | | | tissue structures are unremarkable. IMPRESSION - No acute | | | findings. Dictated and Signed by: Jethro Colvin MD | | | Electronically signed: 06/23/2015 8:58 AM | | + + + + + | Procedure Note | + + | Dominic, Rad Results In - 06/23/2015 9:01 AM PDT XR KNEE LEFT 1 - 2 VW 06/22/2015 7:32 | | PMHISTORY: KNEE INJURY.COMPARISON: None.FINDINGS:There are no acute osseous findings. No | | significant degenerative changes areseen. Bone mineralization is normal. There is no | | significant effusion. Softtissue structures are unremarkable.IMPRESSION -No acute | | findings.Dictated and Signed by: Jethro Colvin MD Electronically signed: 06/23/2015 8:58 | | AM | |FINDINGS: | |There are no acute osseous findings. No significant degenerative changes are | |seen. Bone mineralization is normal. There is no significant effusion. Soft | |tissue structures are unremarkable. | | | |IMPRESSION - | |No acute findings. | | | |Dictated and Signed by: Jethro Colvin MD | | Electronically signed: 06/23/2015 8:58 AM | + + + +---------+ + + | Performing | Address | City/State/Zipcode | Phone Number | | Organization | | | | + +---------+ + + | [facility] | | | | + +---------+ + + documented in this encounter Visit Diagnoses + + | Diagnosis | + + | Acute internal derangement of left knee - Primary | + + documented in this encounter
--- OUTSIDE RECORDS SUMMARY | ~2020-03-11 | XMS | Encounter Summary ---
Demographics + + + | Address | [address] | | | [place] [address] | + + + | Home Phone | | + + + | Preferred Language | Unknown | + + + | Marital Status | Single | + + + | Buddhist Affiliation | 1041 | + + + | Race | Unknown | + + + | Ethnic Group | Unknown | + + + Author + + + | Author | [facility] | | | and [place] | + + + | Organization | [facility] | | | and [place] | + + + | Address | Unknown | + + + | Phone | Unavailable | + + + Support + + + + + | Name | Relationship | Address | Phone | + + + + + | Vidal Aceves/Cristiana White | ECON | [address] | | | [place] | | [place] [address] | | + + + + + | Juan Carlos Mejia | ECON | Unknown | | + + + + + Care Team Providers + +------+ + | Care Forensic Pathologist Name | Role | Phone | + +------+ + PCP | Unavailable | + +------+ + Encounter Details +--------+ + + + + | Date | Type | Department | Care Team | Description | +--------+ + + + + | 01/23/ | Hospital | [facility] | | | | 2000 | Encounter | [facility] | | | | | | CENTER [address] | | | | | | [place], [place] | | | | | | [address] | | | | | | [phone] | | | +--------+ + + + [...]
--- OUTSIDE RECORDS SUMMARY | ~2020-03-11 | XMS | Encounter Summary ---
Demographics + + + | Address | [address] | | | [place] [address] | + + + | Home Phone | | + + + | Preferred Language | Unknown | + + + | Marital Status | Single | + + + | Pentecostal Affiliation | 1041 | + + + | Race | Unknown | + + + | Ethnic Group | Unknown | + + + Author + + + | Author | [facility] | | | and [place] | + + + | Organization | [facility] | | | and [place] | + + + | Address | Unknown | + + + | Phone | Unavailable | + + + Support + + + + + | Name | Relationship | Address | Phone | + + + + + | Vidal Aceves/Cristiana White | ECON | [address] | | | [place] | | [place] [address] | | + + + + + | Juan Carlos Mejia | ECON | Unknown | | + + + + + Care Team Providers + +------+ + | Care Inclinometer Tester Name | Role | Phone | + +------+ + | No, Physician | PCP | Unavailable | + +------+ + Reason for Visit +---------+ + | Reason | Comments | +---------+ + | No Show | | +---------+ + Encounter Details +--------+ + + + + | Date | Type | Department | Care Team | Description | +--------+ + + + + | 04/21/ | Documentati | [facility] | Isabel Leo, | No Show | | 2017 | on | [facility] | [facility] [address] | | | | | [address] [place] | [place] | | | | | [place] [address] | [address] | | | | | [phone] | [phone] | | | | | | | | +--------+ + + + [...] + + documented as of this encounter Progress Notes Isabel Leo, [facility] - 04/21/2017 8:03 AM [facility] [address] [place] [address] Cancellation/No Show Date: 04/21/2017 Patient Information Patient Name: Km Hoff Date of : 1995 Age: 21 y.o. Reason for missed visit: No Show Phone call placed: no, but front desk lead will call later this morning and check in with haley das Plan: Will see at next scheduled visit. Electronically signed by: Isabel Leo PTA, 04/21/2017 8:04 Patient Name: Km Hoff/: 1995/ documented in this encounter Plan of Treatment Not on filedocumented as of this encounter Visit Diagnoses Not on filedocumented in this encounter"
--- OUTSIDE RECORDS SUMMARY | ~2020-03-11 | XMS | Encounter Summary ---
Demographics + + + | Address | [address] | | | [place] [address] | + + + | Home Phone | | + + + | Preferred Language | Unknown | + + + | Marital Status | Single | + + + | Islam Affiliation | 1041 | + + + | Race | Unknown | + + + | Ethnic Group | Unknown | + + + Author + + + | Author | [facility] | | | and [place] | + + + | Organization | [facility] | | | and [place] | + + + | Address | Unknown | + + + | Phone | Unavailable | + + + Support + + + + + | Name | Relationship | Address | Phone | + + + + + | Vidal Aceves/Cristiana White | ECON | [address] | | | [place] | | [place] [address] | | + + + + + | Juan Carlos Mejia | ECON | Unknown | | + + + + + Care Team Providers + +------+ + | Care Continuous Dryout Operator Helper Name | Role | Phone | + [...] | +--------+ + + + + | 10/03/ | Emergency | [facility] | Jeromy Chavarria, | Contusion of left | | 2017 | | [facility] | [address] | knee, initial | | | | CENTER [address] | [place] | encounter (Primary | | | | [place], [place] | [place] [address] | Dx) | | | | [address] | [phone] | | | | | [phone] | | | +--------+ + + + [...] + + + | Blood Pressure | 130/76 | 10/03/2016 5:07 PM | | | | | PST | | + + + + + | Pulse | 77 | 10/03/2016 5:07 PM | | | | | PST | | + + + + + | Temperature | 36.3 C (97.3 F) | 10/03/2016 5:07 PM | | | | | PST | | + + + + + | Respiratory Rate | 16 | 10/03/2016 5:07 PM | | | | | PST | | + + + + + | Oxygen Saturation | 98% | 10/03/2016 5:07 PM | | | | | PST | | + + + + + | Inhaled Oxygen | - | - | | | Concentration | | | | + + + + + | Weight | 78.5 kg (173 lb) | 10/03/2016 3:50 PM | | | | | PST | | + + + + + | Height | 177.8 cm (5' 10") | 10/03/2016 3:50 PM | | | | | PST | | + + + + + | Body Mass Index | 24.82 | 10/03/2016 3:50 PM | | | | | PST | | + + + + + documented in this encounter Discharge Instructions Instructions Jeromy Chavarria MD - 10/03/2016 Rest left knee in knee immobilizer from aggravating positions and activities. Use crutches to avoid weight on the injured joint Avoid bending, lifting, twisting and use. Ice ibuprof en or Aleve and Tylenol as needed for pain,. Recheck with your regular doctor in about 7 da ys,, sooner if worse. If your symptoms are not resolving as expected please return here or go to an emergency department as needed. We are committed to improving the emergency department experience for our patients, and isa simons love to hear your feedback. If you receive a customer satisfaction survey either by mail or email, please fill it out and let us know how we are doing! We love to hear about any p ositive experiences, and we need to hear about any areas we can improve upon. We appreciate you taking the time to fill out this survey so we can continue to serve our community in th e best way possible. documented in this encounter Medications at Time [...] documented as of this encounter ED Notes Jeromy Chavarria MD - 10/03/2016 4:08 PM PSTFormatting of this note might be different fro m the original. [facility] [place] Emergency Department Encounter Note [address] [place] [address] PCP:No Physician on file [phone] CHIEF COMPLAINT: Chief Complaint Patient presents with Knee Injury ED Room: ED12/ED12 TRIAGE: ED Triage Notes Gabe Romano RN 10/03/2016 15:50 Injured left knee snowboarding today hx of previous injury to same knee HPI Km Hoff is a 20 y.o. male who presents to the Emergency Department with left knee myra n worse with walking for the last couple hours since he was snowboarding and went off a 10 f oot jump landing flat on his feet and thereby jamming his left knee with an axial load. He said there was no direct blow to the knee nor any twisting. He had prior knee injury proble m and surgery but did not get any postop physical therapy and rehab. However he felt that h is knee was strong and without problems. He reports having crutches and a knee immobilizer in his car to use for immobilization PAST MEDICAL & SURGICAL HISTORY No past medical history on file. Past Surgical History Procedure Laterality Date Orthopedic surgery Right elbow. Tonsillectomy Knee arthroscopy Left 07/11/2015 Procedure: Left Knee A.C.L. Reconstruction w/ Autograft and arthroscopy; Surgeon: Khari Carl MD; Location: [facility] MAIN OR Shoulder arthroscopy Right 12/17/2015 Procedure: Right Shoulder Scope, Anterior Labral Repair, Capsular Shift; Surgeon: Rhonda Nixon DO; Location: [facility] MAIN OR I reviewed past medical history, medications and allergies at presentation. CURRENT MEDICATIONS Previous Medications No medications on file ALLERGIES No Known Allergies FAMILY AND SOCIAL HISTORY No family history on file. Social History Social History Marital Status: Single Spouse Name: N/A Number of Children: N/A Years of Education: N/A Social History Main Topics Smoking status: Former Smoker -- 0.10 packs/day for 2 years Types: Cigarettes Smokeless tobacco: Current User Types: Chew Alcohol Use: 1.8 oz/week 3 Cans of beer per week Drug Use: Yes Special: Marijuana Sexual Activity: Not on file Other Topics Concern Not on file Social History Narrative REVIEW OF SYSTEMS As in history of present illness. . PHYSICAL EXAM VITAL SIGNS: (first vital signs):Temp: 36.7 C (98.1 F) Pulse: 75 Resp: 16 SpO2: 97 % BP : 135/65 mmHg Constitutional: male patient, No acute distress Head: Atraumatic, no facial asymmetry Eyes: PER, eyes clear of redness. ENT: External ears appear normal, Neck: Supple with good range of motion, no JVD Respiratory: No respiratory distress, Extremities: Atraumatic without deformities, minimal proximal fibular tenderness no patella r distal femur or proximal tibia tenderness. Ligaments around the left knee are nontender w ithout swelling or effusion. No laxity but reduced flexion and extension. Range of motion is from 20 to 110 measured from full extension. No lower extremity edema, no calf asymmet ry. Skin: Warm, Dry, No rashes Neurologic: Alert & oriented. Not anxious. No focal deficits., Speech normal, gait not te sted Psychiatric: Normal mood and affect. LABS No results found for this or any previous visit. IMAGING STUDIES (X-Rays interpreted by ED Physician) X-ray left knee shows no acute fracture or dislocation ED COURSE & MEDICAL DECISION MAKING Pertinent Labs & Imaging studies were reviewed along with EMS notes and [facility] record s if applicable. (See chart for details) Medications and Allergy list reviewed. Nurses note and old records were reviewed The patient was seen and examined, imaged and wrapped with an elastic wrap to use until he can get his brace on. He was given Tylenol and ibuprofen Last Set of Vital Signs: Temp: 36.7 C (98.1 F) Pulse: 75 Resp: 16 SpO2: 97 % BP: 135/65 mmHg FINAL IMPRESSION ICD-10-CM ICD-9-CM 1. Contusion of left knee, initial encounter S80.02XA 924.11 Discharge Instructions Rest left knee in knee immobilizer from aggravating positions and activities. Use crutches to avoid weight on the injured joint Avoid bending, lifting, twisting and use. Ice ibuprof en or Aleve and Tylenol as needed for pain,. Recheck with your regular doctor in about 7 da ys,, sooner if worse. If your symptoms are not resolving as expected please return here or go to an emergency department as needed. We are committed to improving the emergency department experience for our patients, and isa ronak love to hear your feedback. If you receive a customer satisfaction survey either by mail or email, please fill it out and let us know how we are doing! We love to hear about any p ositive experiences, and we need to hear about any areas we can improve upon. We appreciate you taking the time to fill out this survey so we can continue to serve our community in th e best way possible. Portions of this chart may have been created with [employer] voice recognition software. Occasi onal wrong-word or sound-alike substitutions may have occurred due to the inherent de la cruz itations of voice recognition software. Please read the chart carefully and recognize, using context, where these substitutions have occurred Jeromy Chavarria MD 10/03/16 1657 document ed in this encounter Miscellaneous Notes ED Triage Notes - Gabe Romano, RN - 10/03/2016 3:50 PM PSTInjured left knee snowboardin g today hx of previous injury to same kneeElectronically signed by Gabe Romano RN at 09/13 3:50 PM PSTdocumented in this encounter Plan of Treatment + +------+--------+ + + | Name | Type | Priori | Associated Diagnoses | Date/Time | | | | ty | | | + +------+--------+ + + | ED INFORMATION | HANNA | Routin | | 10/03/2016 3:30 PM | | EXCHANGE | | e | | PST | + +------+--------+ + + documented as of this encounter Procedures + +--------+ + + + | Procedure Name | Priori | Date/Time | Associated Diagnosis | Comments | | | ty | | | | + +--------+ + + + | XR KNEE LEFT 3 VW | STAT | 10/03/2016 | | Results for this | | | | 4:21 PM | | procedure are in the | | | | PST | | results section. | + +--------+ + + + | ED INFORMATION | Routin | 10/03/2016 | | | | EXCHANGE | e | 3:30 PM | | | | | | PST | | | + +--------+ + + + documented in this encounter Results XR Knee Left 3 Vw (10/03/2016 4:21 PM PST) + + | Specimen | + + | | + + + + + | Narrative | Performed At | + + + | XR KNEE LEFT 3 VW 10/03/2016 4:12 PM HISTORY: KNEE INJURY. | [facility] | | COMPARISON: Multiple priors. FINDINGS: There is evidence for | | | prior ACL repair with tunneling procedure and a small plate hardware | | | in the lateral aspect of the distal femoral metaphysis. Bone | | | mineralization is normal. There is no significant effusion. Soft | | | tissues are unremarkable. IMPRESSION - No acute osseous | | | findings. Prior ACL repair. Dictated and Signed by: Jethro | | | MD Vinicius Electronically signed: 10/04/2016 10:14 AM | | + + + + + | Procedure Note | + + | Dominic, Rad Results In - 10/04/2016 10:17 AM PST XR KNEE LEFT 3 VW 10/03/2016 4:12 PM | | | | HISTORY: KNEE INJURY. | | | | COMPARISON: Multiple priors. | | | | FINDINGS: | | There is evidence for prior ACL repair with tunneling procedure and a small | | plate hardware in the lateral aspect of the distal femoral metaphysis. Bone | | mineralization is normal. There is no significant effusion. Soft tissues are | | unremarkable. | | | | IMPRESSION - | | No acute osseous findings. | | | | Prior ACL repair. | | | | Dictated and Signed by: Jethro Colvin MD | | Electronically signed: 10/04/2016 10:14 AM | + + + +---------+ + + | Performing | Address | City/State/Zipcode | Phone Number | | Organization | | | | + +---------+ + + | [facility] | | | | + +---------+ + + documented in this encounter Visit Diagnoses + + | Diagnosis | + + | Contusion of left knee, initial encounter - Primary | + + documented in this encounter Administered Medications + +--------+ +--------+------+------+ | Medication Order | MAR | Action | Dose | Rate | Site | | | Action | Date | | | | + +--------+ +--------+------+------+ | acetaminophen (TYLENOL) tablet | Given | 10/03/19 | 650 mg | | | | 650 mg 650 mg, Oral, ONCE, Sun | | 17 5:03 | | | | | 10/03/16 at 1655, For 1 dose | | PM PST | | | | + +--------+ +--------+------+------+ +---+---+ | | | +---+---+ + +-------+ +--------+---+---+ | ibuprofen (ADVIL,MOTRIN) tablet | Given | 10/03/19 | 600 mg | | | | 600 mg 600 mg, Oral, ONCE, Sun | | 17 5:02 | | | | | 17 at 1655, For 1 dose, Give | | PM PST | | | | | with food., | | | | | | + +-------+ +--------+---+---+ +---+---+ | | | +---+---+ documented in this encounter
--- OUTSIDE RECORDS SUMMARY | ~2020-03-11 | XMS | Encounter Summary ---
Demographics + + + | Address | [address] | | | [place] [address] | + + + | Home Phone | | + + + | Preferred Language | Unknown | + + + | Marital Status | Single | + + + | Uatsdin Affiliation | 1041 | + + + | Race | Unknown | + + + | Ethnic Group | Unknown | + + + Author + + + | Author | [facility] | | | and [place] | + + + | Organization | [facility] | | | and [place] | + + + | Address | Unknown | + + + | Phone | Unavailable | + + + Support + + + + + | Name | Relationship | Address | Phone | + + + + + | Vidal Aceves/Cristiana White | ECON | [address] | | | [place] | | [place] [address] | | + + + + + | Juan Carlos Mejia | ECON | Unknown | | + + + + + Care Team Providers + +------+ + | Care Yeast Tender Name | Role | Phone | + +------+ + | No Physician | PCP | Unavailable | + +------+ + Encounter Details +--------+ + + + + | Date | Type | Department | Care Team | Description | +--------+ + + + + | 05/09/ | Documentati | [facility] | Pascual Logan, PT | | | 2017 | on | [facility] | [address] [place] | | | | | [address] [place] | [place] [address] | | | | | [place] [address] | [phone] | | | | | [phone] | | | +--------+ + + + [...]
--- OUTSIDE RECORDS SUMMARY | ~2020-03-11 | XMS | Encounter Summary ---
Demographics + + + | Address | [address] | | | [place] [address] | + + + | Home Phone | | + + + | Preferred Language | Unknown | + + + | Marital Status | Single | + + + | Holiness Affiliation | 1041 | + + + | Race | Unknown | + + + | Ethnic Group | Unknown | + + + Author + + + | Author | [facility] | | | and [place] | + + + | Organization | [facility] | | | and [place] | + + + | Address | Unknown | + + + | Phone | Unavailable | + + + Support + + + + + | Name | Relationship | Address | Phone | + + + + + | Vidal Aceves/Cristiana White | ECON | [address] | | | [place] | | [place] [address] | | + + + + + | Juan Carlos Mejia | ECON | Unknown | | + + + + + Care Team Providers + +------+ + | Care Outside Plant Technician Name | Role | Phone | + +------+ + | No, Physician | PCP | Unavailable | + +------+ + Reason for Visit +---------+ + | Reason | Comments | +---------+ + | Post Op | left knee Acl REPAIR DOS 07/11/15 | +---------+ + Encounter Details +--------+---------+ + + + | Date | Type | Department | Care Team | Description | +--------+---------+ + + + | 09/24/ | Office | [facility] | Khari Carl, | Postop check | | 2016 | Visit | ORTHOPEDIC SURGERY | MD Shilpa LOVETT | (Primary Dx) | | | | [address] | [place] | | | | | [place] | [address] | | | | | [address] | | | | | | [phone] | | | +--------+---------+ + + + [...] + + + + | Temperature | 36.4 C (97.5 F) | 09/24/2015 2:05 PM | | | | | PST [...] Weight | 72.6 kg (160 lb) | 09/24/2015 2:05 PM | | | | | PST | | + + + + + | Height | 180.3 cm (5' 11") | 09/24/2015 2:05 PM | | | | | PST | | + + + + + | Body Mass Index | 22.32 | 09/24/2015 2:05 PM | | | | | PST | | + + + + + documented in this encounter Progress Notes Khari Carl MD - 09/24/2015 9:12 PM PSTPatient returns s/p left knee ACL reconstructi on 10 weeks out He is doing very well No feeling of instability No problems with his knee He is doing treadmill and biking for strengthening On exam he has unrestricted range of motion Negative vishal and pivot shift He has mild mcl laxity with firm endpoint Impression - 10 weeks post AcL reconstruction - doing well 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
--- OUTSIDE RECORDS SUMMARY | ~2020-03-11 | XMS | Encounter Summary ---
Demographics + + + | Address | [address] | | | [place] [address] | + + + | Home Phone | | + + + | Preferred Language | Unknown | + + + | Marital Status | Single | + + + | Uatsdin Affiliation | 1041 | + + + | Race | Unknown | + + + | Ethnic Group | Unknown | + + + Author + + + | Author | [facility] | | | and [place] | + + + | Organization | [facility] | | | and [place] | + + + | Address | Unknown | + + + | Phone | Unavailable | + + + Support + + + + + | Name | Relationship | Address | Phone | + + + + + | Vidal Aceves/Cristiana White | ECON | [address] | | | [place] | | [place] [address] | | + + + + + | Juan Carlos Mejia | ECON | Unknown | | + + + + + Care Team Providers + +------+ + | Care Senior Developer Name | Role | Phone | + +------+ + | No, Physician | PCP | Unavailable | + +------+ + Reason for Visit + +--------+ + | Reason | Onset | Comments | | | Date | | + +--------+ + | ED Follow-up | 06/24/ | | | | 2014 | | + +--------+ + Encounter Details +--------+ + + + + | Date | Type | Department | Care Team | Description | +--------+ + + + + | 06/24/ | Telephone | [facility] | Khari Carl, | ED Follow-up | | 2015 | | ORTHOPEDIC SURGERY | MD [address] | | | | | [address] | [place] | | | | | [place] | [address] | | | | | [address] | | | | | | [phone] | | | +--------+ + + + [...] Notes Telephone Encounter - Helen Atwood - 06/26/2015 4:15 PM PDTPatients mother was notified . elephone Encounter - Helen Richey - 06/26/2015 2:00 PM PDTLeft message for patient mother to return our call. Appointment has been scheduled. elephone Encounter - Yas Simms Cert MA - 06/26/2015 12:[address]insley he would like to see him next week on 07/03/2015 at 11:30. elephone Encounter - Yas Tillman Cert MA - 06/26/2015 11:35 AM PDTMRI Complete. No radiology report yet. Given t o to review MRI. Electronically signed by Aaliyah Johnson MA at 06/12 11:35 AM PDTTelephone Encounter - Yas Simms Cert MA - 06/25/2015 8:16 AM PDT*Deferred to Dr. Carl* elephon e Encounter - Helen Atwood - 06/24/2015 9:11 AM PDTPatient was seen at [facility] for a left knee injury while bull riding on 06-22-2015. Patient had some imaging taken and is currently scheduled for a MRI on 06-26-2015 @ 0900. Cristiana can be reached at [phone]. I did inform mother that Dr. Pickard was wire communications engineer and they did not want to be see him.Electro nically signed by Helen Atwood at 06/24/2015 9:14 AM PDTdocumented in this encounter Plan of Treatment Not on filedocumented as of this encounter Visit Diagnoses Not on filedocumented in this encounter"
--- OUTSIDE RECORDS SUMMARY | ~2020-03-11 | XMS | Encounter Summary ---
Demographics + + + | Address | [address] | | | [place] [address] | + + + | Home Phone | | + + + | Preferred Language | Unknown | + + + | Marital Status | Single | + + + | Faith Affiliation | 1041 | + + + | Race | Unknown | + + + | Ethnic Group | Unknown | + + + Author + + + | Author | [facility] | | | and [place] | + + + | Organization | [facility] | | | and [place] | + + + | Address | Unknown | + + + | Phone | Unavailable | + + + Support + + + + + | Name | Relationship | Address | Phone | + + + + + | Vidal Aceves/Cristiana White | ECON | [address] | | | [place] | | [place] [address] | | + + + + + | Juan Carlos Mejia | ECON | Unknown | | + + + + + Care Team Providers + +------+ + | Care Agency Manager Name | Role | Phone | [...] to | Steven Pompa, | [address] | | | | | multiple | MD [address] | [place], | | | | | structures | [address] | [place] | | | | | of left | [facility] | [address] | | | | | knee, | [place], | Phone: | | | | | initial | [place] | [phone] | | | | | encounter | [address] | Fax: | | | | | Procedures | Phone: | [phone] | | | | | MRI Knee | [phone] | | | | | | Left wo | Fax: | | | | | | Contrast | [phone] | | +--------+--------+ + + + + Reason for Visit Auth/Cert +--------+--------+ + + + + | Status | Reason | Specialty | Diagnoses / | Referred By | Referred To | | | | | Procedures | Contact | Contact | +--------+--------+ + + + + | | | | | | | +--------+--------+ + + + + Encounter Details +--------+ + + + + | Date | Type | Department | Care Team | Description | +--------+ + + + + | 06/26/ | Hospital | [facility] | Steven Guaman, | | | 2015 | Encounter | MED CTR MRI [address] | MD [address] | | | | | [place], | [facility] [place] | | | | | [place] [address] | [place] [address] | | | | | [phone] | [phone] | | | | | | | [...] + + documented as of this encounter Medications at Time of Discharge [...] | 20 | 0 | 06/22/20 | 10/16/201 | | (ADVIL,MOTRIN) 600 | mouth every [...] | + +--------+ + + + | MRI KNEE LEFT WO | Routin | 06/26/2015 | | Results for this | | CONTRAST | e | 10:29 AM | | procedure are [...]
--- OUTSIDE RECORDS SUMMARY | ~2020-03-11 | XMS | Encounter Summary ---
Demographics + + + | Address | [address] | | | [place] [address] | + + + | Home Phone [...] + + + | Author | [facility] | | | and [place] | + + + | Organization | [facility] | | | and [place] | + + + | Address | Unknown | + + + | Phone | Unavailable | + + + Support + + + + + | Name | Relationship | Address | Phone | + + + + + | Vidal Aceves/Cristiana White | ECON | [address] | | | [place] | | [place] [address] | | + + + + + | Juan Carlos Mejia | ECON | Unknown | | + + + + + Care Team Providers + +------+ + | Care Title Processor Name | Role | Phone | + +------+ + | No, Physician | PCP | Unavailable | + +------+ + Reason for Visit + + + | Reason | Comments | + + + | Shoulder Deformity | right | + + + Encounter Details +--------+ + + + + | Date | Type | Department | Care Team | Description | +--------+ + + + + | 05/21/ | Emergency | [facility] | Ki Alvarado, | Closed anterior | | 2018 - | | [facility] | MD [address] | dislocation of right | | | | CENTER [address] | [place] | shoulder, initial | | 05/22/ | | [place] | [id number] | encounter (Primary | | 2018 | | [address] | | Dx) | | | | [phone] | | | +--------+ + + + [...] + + + | Blood Pressure | 124/74 | 05/22/2018 3:00 AM | | | | | PDT | | + + + + + | Pulse | 60 | 05/22/2018 3:00 AM | | | | | PDT | | + + + + + | Temperature | 36.2 C (97.1 F) | 05/21/2018 10:31 PM | | | | | PDT | | + + + + + | Respiratory Rate | 12 | 05/22/2018 3:00 AM | | | | | PDT | | + + + + + | Oxygen Saturation | 97% | 05/22/2018 3:00 AM | | | | | PDT | | + + + + + | Inhaled Oxygen | - | - | | | Concentration | | | | + + + + + | Weight | 79.4 kg (175 lb) | 05/21/2018 10:31 PM | | | | | PDT | | + + + + + | Height | 177.8 cm (5' 10") | 05/21/2018 10:31 PM | | | | | PDT | | + + + + + | Body Mass Index | 25.11 | 05/21/2018 10:31 PM | | | | | PDT | | + + + + + documented in this encounter Discharge Instructions Instructions Ki Alvarado MD - 05/22/2018Weivan cisnerso for one week Follow-up with orthopedics specialist Return if new concerning symptoms AttachmentsThe following attachments cannot be sent through Care Everywhere.Dislocation: Sh konstantin (Reduced) (Botswanan)documented in this encounter Medications at Time of [...] documented as of this encounter ED Notes Ki Alvarado MD - 05/21/2018 10:52 PM PDTFormatting of this note might be different fro m the original. eMERGENCY dEPARTMENT eNCOUnter CHIEF COMPLAINT Chief Complaint Patient presents with Shoulder Deformity right HPI Km Hoff is a 22 y.o. male who presents complaining of recurrent dislocation of th e right shoulder. Patient states that he has had frequent dislocations of the right shoulder in the past. He states he was rolling out of bed and it dislocated tonight. He states that often times he will reduce it himself but was unable to tonight. He states that it has been out for approximately 60-70 minutes. Denies any numbness or weakness in the arm or deltoid. PAST MEDICAL HISTORY Past Medical History: Diagnosis Date Shoulder dislocation, right, subsequent encounter SURGICAL HISTORY Past Surgical History: Procedure Laterality Date KNEE ARTHROSCOPY Left 07/11/2015 Procedure: Left Knee A.C.L. Reconstruction w/ Autograft and arthroscopy; Surgeon: Khari Carl MD; Location: [facility] MAIN OR ORTHOPEDIC SURGERY Right elbow. SHOULDER ARTHROSCOPY Right 12/17/2015 Procedure: Right Shoulder Scope, Anterior Labral Repair, Capsular Shift; Surgeon: Griffin Nixon DO; Location: [facility] MAIN OR TONSILLECTOMY CURRENT MEDICATIONS Discharge Medication List as of 05/22/2018 3:11 CONTINUE these medications which have NOT CHANGED Details cyclobenzaprine (FLEXERIL) 5 MG tablet take 1 tablet by mouth every 6 hours if neededR-0, H istorical Med ibuprofen (ADVIL, MOTRIN) 200 mg tablet Take 600 mg by mouth Twice daily as needed for Filemon n.Historical Med ALLERGIES No Known Allergies FAMILY HISTORY History reviewed. No pertinent family history. SOCIAL HISTORY Social History Social History Marital status: Single Spouse name: N/A Number of children: N/A Years of education: N/A Social History Main Topics Smoking status: Former Smoker Packs/day: 0.10 Years: 2.00 Types: Cigarettes Smokeless tobacco: Current User Types: Chew Alcohol use 1.8 oz/week 3 Cans of beer per week Drug use: Yes Types: Marijuana Sexual activity: Not Asked Other Topics Concern None Social History Narrative None REVIEW OF SYSTEMS A 12 system review of systems is otherwise negative except as noted in the HPI above. PHYSICAL EXAM VITAL SIGNS: (first vital signs):Temp: 36.2 C (97.1 F) Pulse: 72 Resp: 16 SpO2: 99 % BP : 136/79 Constitutional: Well developed, Well nourished, No acute distress, Non-toxic appearance. HENT: Normocephalic, Atraumatic, Bilateral external ears normal, Oral mucosa moist, tie knitter helper ior pharynx no exudates, Nose normal. Neck-supple, nontender, no meningismus, No stridor. Eyes: PERRL, EOMI, Conjunctiva normal, No discharge. Respiratory: Breath sounds equal bilaterally, no adventitious sounds, No chest wall tender ness. Cardiovascular: Normal rate, normal S1, S2, no murmurs, rubs, or gallops GI: Abdomen soft, non-tender, non-distended, normal bowel sounds, no CVA tenderness : Musculoskeletal: Intact distal pulses, dislocation deformity of the right glenohumeral yfn nt. Back- No tenderness. Skin: Warm, Dry, No erythema, No rash or lesions. Lymphatic: Neurologic: Alert & oriented x 3, Cranial nerves II-XII intact, Normal sensation, motor, a nd strength in all four extremities, No focal deficits noted. Psychiatric: Affect normal, Judgment normal, Mood normal. Labs Reviewed - No data to display RADIOLOGY CT Results: No results found. X-ray right shoulder postreduction shows good alignment Joint Reduction Procedure Note Indication: Joint dislocation Consent: The patient was counseled regarding the procedure, its indications, risks, potenti al complications and alternatives and any questions were answered. Consent was obtained. Procedure: The pre-reduction exam showed distal perfusion & neurologic function to be maryan l. The patient was placed in the supine position. Anesthesia/pain control was obtained using conscious sedation -SEE CONSCIOUS SEDATION NOTE FOR DETAILS. Reduction of the right shoulde r was performed by external rotation. Post reduction films were obtained and revealed satisf actory reduction. A post-reduction exam revealed distal perfusion & neurologic function to b e normal. The affected area was immobilized with a sling and swath. The patient tolerated the procedure well. Complications: None Conscious Sedation Procedure Note Indication: shoulder dislocation Consent: I have discussed with the patient and/or the patient sales representative livestock the indication , alternatives, and the possible risks and/or complications of the planned procedure and the anesthesia methods. The patient and/or patient sales representative livestock appear to understand and agre e to proceed. Physician Involvement: The attending physician was present and supervising this procedure. Sedation Start Date/Time: 05/22/1815 Sedation End Date/Time: 05/22/18240 Pre-Sedation Documentation and Exam: I have personally completed a history, physical exam & review of systems for this patient (see notes). Airway Assessment: Mallampati Class I - (soft palate, fauces, uvula & anterior/posterior to nsillar pillars are visible) Prior History of Anesthesia Complications: none ASA Classification: Class 1 - A normal healthy patient Sedation/ Anesthesia Plan: intravenous sedation Medications Used: ketamine intravenously Monitoring and Safety: The patient was placed on a court recording monitor and vital signs, pulse o ximetry and level of consciousness were continuously evaluated throughout the procedure. The patient was closely monitored until recovery from the medications was complete and the marquis ent had returned to baseline status. Respiratory therapy was on standby at all times during the procedure. (The following sections must be completed) Post-Sedation Vital Signs: Vital signs were reviewed and were stable after the procedure (s ee flow sheet for vitals) Post-Sedation Exam: Lungs: clear to auscultation bilaterally Complications: none ED COURSE & MEDICAL DECISION MAKING Pertinent Labs & Imaging studies reviewed. (See chart for details) Patient presented with recurrent right shoulder dislocation. Attempts were made to reduce sana mckay without sedation or analgesia and then with analgesia alone without success. Patient was then consented for procedural sedation with ketamine and reduction was achieved as desc ribed above. Patient was monitored until fully recovered from sedation. He did have some vom iting during recovery requiring Zofran but otherwise did well. He is discharged home with a sling in place and to follow-up with his orthopedic doctor in [place]. He should return if new concerning symptoms develop. Last Set of Vital Signs: Temp: 36.2 C (97.1 F) Pulse: 60 Resp: 12 SpO2: 97 % BP: 124/74 FINAL IMPRESSION 1. Closed anterior dislocation of right shoulder, initial encounter PLAN Follow-up Information Ethan Aly MD. Schedule an appointment as soon as possible for a visit in 1 week. Specialty: Specialist Contact information: [address] [place] [address] Discharge Medication List as of 05/22/2018 3:11 Ki Alvarado MD 05/22/18 0341 ietrich, Rupal Aguilar N - 05/21/2018 10:29 PM PDTRight shoulder dislocation while getting out of bed 90 minutes ag o. History of frequent dislocations. Distal pulses, sensation and movement of phalanges inta ct. documented in th is encounter Plan of Treatment Not on filedocumented as of this encounter Procedures + +--------+ + + + | Procedure Name | Priori | Date/Time | Associated Diagnosis | Comments | | | ty | | | | + +--------+ + + + | XR SHOULDER RIGHT 2 | STAT | 05/22/2018 | | Results for this | | + VW | | 1:19 AM | | procedure are in the | | | | PDT | | results section. | + +--------+ + + + documented in this encounter Results XR Shoulder Right 2 + Vw (05/22/2018 1:19 AM PDT) + + | Specimen | + + | | + + + + + | Narrative | Performed At | + + + | XR SHOULDER RIGHT 2 + VW 05/22/2018 12:47 AM HISTORY: SHOULDER | [facility] | | DEFORMITY. COMPARISON: None. FINDINGS: There is a Hill-Sachs | | | deformity involving the humeral head likely due to prior anterior | | | shoulder dislocation. The AC joint is normal. The glenohumeral joint | | | is intact. Focal lucencies are seen of the glenoid that could | | | represent degenerative cysts versus postoperative changes. Bone | | | mineralization is normal. Visualized chest shows no acute findings. | | | Soft tissue structures are unremarkable. IMPRESSION - No acute | | | osseous findings. Hill-Sachs deformity involving the humeral head | | | likely due to prior anterior shoulder dislocation. Focal | | | lucencies of the glenoid that could represent degenerative cysts | | | versus postoperative changes. Dictated and Signed by: Jethro | | | MD Vinicius Electronically signed: 05/22/2018 9:09 AM | | + + + + + | Procedure Note | + + | Dominic, Rad Results In - 05/22/2018 9:12 AM PDT XR SHOULDER RIGHT 2 + VW 05/22/2018 | | 12:47 AMHISTORY: SHOULDER DEFORMITY.COMPARISON: None.FINDINGS:There is a Hill-Sachs | | deformity involving the humeral head likely due to prioranterior shoulder dislocation. | | The AC joint is normal. The glenohumeral joint isintact. Focal lucencies are seen of the | | glenoid that could representdegenerative cysts versus postoperative changes. Bone | | mineralization is normal.Visualized chest shows no acute findings. Soft tissue | | structures areunremarkable. IMPRESSION -No acute osseous findings.Hill-Sachs deformity | | involving the humeral head likely due to prior anteriorshoulder dislocation.Focal | | lucencies of the glenoid that could represent degenerative cysts versuspostoperative | | changes.Dictated and Signed by: Jethro Colvin MD Electronically signed: 05/22/2018 9:09 | | AM | |Visualized chest shows no acute findings. Soft tissue structures are | |unremarkable. | | | |IMPRESSION - | |No acute osseous findings. | | | |Hill-Sachs deformity involving the humeral head likely due to prior anterior | |shoulder dislocation. | | | |Focal lucencies of the glenoid that could represent degenerative cysts versus | |postoperative changes. | | | |Dictated and Signed by: Jethro Colvin MD | | Electronically signed: 05/22/2018 9:09 AM | + + + +---------+ + + | Performing | Address | City/State/Zipcode | Phone Number | | Organization | | | | + +---------+ + + | [facility] | | | | + +---------+ + + documented in this encounter Visit Diagnoses + + | Diagnosis | + + | Closed anterior dislocation of right shoulder, initial encounter - Primary | + + documented in this encounter Administered Medications + +--------+ +------+------+------+ | Medication Order | MAR | Action | Dose | Rate | Site | | | Action | Date | | | | + +--------+ +------+------+------+ | HYDROmorphone (DILAUDID) | Given | 05/21/20 | 1 mg | | | | injection 1 mg 1 mg, | | 18 11:28 | | | | | Intravenous, EVERY 15 MIN PRN, | | PM PDT | | | | | Severe Pain, Starting 05/21/18 | | | | | | | at 2252, For 3 doses | | | | | | + +--------+ +------+------+------+ +-------+ +------+---+---+ | Given | 05/21/20 | 1 mg | | | | | 18 11:05 | | | | | | PM PDT | | | | +-------+ +------+---+---+ +---+---+ | | | +---+---+ + +-------+ +--------+---+---+ | ketamine 100 mg/mL injection | Given | 05/22/20 | 120 mg | | | | 120 mg 120 mg, Intravenous, | | 18 12:21 | | | | | ONCE, 05/21/18 at 2350, For 1 | | AM PDT | | | | | dose | | | | | | + +-------+ +--------+---+---+ +---+---+ | | | +---+---+ + + + +------+---+---+ | ondansetron (ZOFRAN ODT) | Dispense | 05/22/20 | 4 mg | | | | disintegrating tablet (ED | to Home | 18 3:19 | | | | | homepack) 4 mg 4 mg, Oral, EVERY | | AM PDT | | | | | 8 HOURS PRN, Nausea, Vomiting, | | | | | | | Starting 05/22/18 at 0312, | | | | | | | Dissolve on tongue or swallow 1 | | | | | | | or 2 tablets every 8 hours prn | | | | | | | nausea or vomiting Dispense for | | | | | | | home use., | | | | | | + + + +------+---+---+ +---+---+ | | | +---+---+ + +-------+ +------+---+---+ | ondansetron (ZOFRAN) injection | Given | 05/22/20 | 4 mg | | | | 4 mg 4 mg, Intravenous, ONCE, | | 18 1:08 | | | | | 05/22/18 at 0110, For 1 dose | | AM PDT | | | | + +-------+ +------+---+---+ +---+---+ | | | +---+---+ + +-------+ +------+---+---+ | ondansetron (ZOFRAN) injection | Given | 05/22/20 | 4 mg | | | | PRN, Starting 05/22/18 at | | 18 1:33 | | | | | 0133 | | AM PDT | | | | + +-------+ +------+---+---+ +---+---+ | | | +---+---+ documented in this encounter
--- OUTSIDE RECORDS SUMMARY | ~2020-03-11 | XMS | Encounter Summary ---
Demographics + + + | Address | [address] | | | [place] [address] | + + + | Home Phone | | + + + | Preferred Language | Unknown | + + + | Marital Status | Single | + + + | Jew Affiliation | 1041 | + + + | Race | Unknown | + + + | Ethnic Group | Unknown | + + + Author + + + | Author | [facility] | | | and [place] | + + + | Organization | [facility] | | | and [place] | + + + | Address | Unknown | + + + | Phone | Unavailable | + + + Support + + + + + | Name | Relationship | Address | Phone | + + + + + | Vidal Aceves/Cristiana White | ECON | [address] | | | [place] | | [place] [address] | | + + + + + | Juan Carlos Mejia | ECON | Unknown | | + + + + + Care Team Providers + +------+ + | Care Pharmacy Stock Clerk Name | Role | Phone | + +------+ + | No, Physician | PCP | Unavailable | + +------+ + Reason for Visit +--------+ + | Reason | Comments | +--------+ + | Rash | exam 3/ chest and bilat arms x 1 hour | +--------+ + Encounter Details +--------+---------+ + + + | Date | Type | Department | Care Team | Description | +--------+---------+ + + + | 08/24/ | Office | [facility] | Hao Shankar | Bronchitis (Primary | | 2012 | Visit | [facility] [address] | Thony Fuentes MD | Dx); Pharyngitis; | | | | [place] | [address] | Adverse reaction to | | | | [address] | [place] | niacin | | | | [phone] | [id number] | | | | | | | | +--------+---------+ + + + Social History + + + +--------+------+ | Tobacco Use | Types | Packs/Day | Years | Date | | | | | Used | | + + + +--------+------+ | Current Some Day | Cigarettes | 0.1 | 2 | | | Smoker | | | | | + + + +--------+------+ + + +---------+ + | Alcohol Use | Drinks/Week | oz/Week | Comments | + + +---------+ + | Not Asked | | | | + + +---------+ + + [...] + + + | Blood Pressure | 120/70 | 08/24/2013 5:00 PM | | | | | PST | | + + + + + | Pulse | 64 | 08/24/2013 5:00 PM | | | | | PST | | + + + + + | Temperature | 36.9 C (98.5 F) | 08/24/2013 5:00 PM | | | | | PST | | + + + + + | Respiratory Rate | 12 | 08/24/2013 5:00 PM | | | | | PST | | + + + + + | Oxygen Saturation | 98% | 08/24/2013 5:00 PM | | | | | PST | | + + + + + | Inhaled Oxygen | - | - | | | Concentration | | | | + + + + + | Weight | 69.5 kg (153 lb 4.8 | 08/24/2013 5:00 PM | | | | oz) | PST | | + + + + + | Height | 177.8 cm (5' 10") | 08/24/2013 5:00 PM | | | | | PST | | + + + + + | Body Mass Index | 22 | 08/24/2013 5:00 PM | | | | | PST | | + + + + + documented in this encounter Patient Instructions Patient Instructions Hao Shankar Jr., MD - 08/24/2013 5:15 PM PSTCheck your ni acin tablet bottle. If the niacin is nicotinic Acid, the skin rash is probably from the ni acin.( Do not take any more niacin and the rash should resolve in 4 hours or so.) If the ta blets are niacinamide, this is probably allergic and you should take 10 mg zyrtec daily for 4-5 days ( you can get this over the counter. Take antibiotic as directed Recheck in 5 days if not improved or sooner if condition worsens documented in this encounter Progress Notes Hao Shankar Jr., MD - 08/24/2013 5:27 PM PSTKm Hoff presents with a two- week history of sore throat and cough which has not resolved. His cough is currently produc tive of yellow-green mucus. His throat has improved somewhat. He has had no GI symptoms an d has had minimal runny nose. Today in an attempt to flush his system he took some niacin a nd about an hour later he developed a erythematous burning prickly rash diffusely. He has n ever had anything like this before. He is uncertain whether the niacin was nicotinic acid o r niacin amide. He has no history of asthma or pneumonia. Exam: No respiratory distress Nose: clear Ears: TM's not inflamed Throat: erythema, no exudate Neck: Supple, no stridor, no adenopathy Chest: No rales, no rhonchi, no wheezes, good breath sounds bilaterally Heart: Regular rhythm, no murmur, no gallop, no rub Skin: Diffuse erythema without urticaria or papular lesions Diagnosis: Dermatitis secondary to nicotinic acid/Bronchitis/Pharyngitis Electronically sig [place] by Hao Shankar Jr., MD at 08/24/2013 5:30 PM PSTdocumented in this encounter Plan of Treatment Not on filedocumented as of this encounter Visit Diagnoses + + | Diagnosis | + + | Bronchitis - Primary Bronchitis, not specified as acute or chronic | + + | Pharyngitis Acute pharyngitis | + + | Adverse reaction to niacin | + + documented in this encounter
--- OUTSIDE RECORDS SUMMARY | ~2020-03-11 | XMS | Encounter Summary ---
Demographics + + + | Address | [address] | | | [place] [address] | + + + | Home Phone [...] + + + | Author | [facility] | | | and [place] | + + + | Organization | [facility] | | | and [place] | + + + | Address | Unknown | + + + | Phone | Unavailable | + + + Support + + + + + | Name | Relationship | Address | Phone | + + + + + | Vidal Aceves/Cristiana White | ECON | [address] | | | [place] | | [place] [address] | | + + + + + | Juan Carlos Mejia | ECON | Unknown | | + + + + + Care Team Providers + +------+ + | Care Dyehouse Worker Name | Role | Phone | + +------+ + | No, Physician | PCP | Unavailable | + +------+ + Reason for Visit + +--------+ + | Reason | Onset | Comments | | | Date | | + +--------+ + | Appointment | 10/20/ | | | | 2015 | | + +--------+ + Encounter Details +--------+ + + + + | Date | Type | Department | Care Team | Description | +--------+ + + + + | 10/20/ | Telephone | [facility] | Khari Carl, | Appointment | | 2015 | | ORTHOPEDIC SURGERY | [address] | | | | [address] | [place] | | | | | [place] | [address] | | | | | [address] | | | | | | [phone] | | | +--------+ + + + [...] this encounter Miscellaneous Notes Telephone Encounter - Benjamin, Krissy E - 10/21/2015 10:53 AM PSTPatient scheduled.Electro nically signed by Krissy Benjamin at 10/21/2015 10:55 AM PSTTelephone Encounter - Krissy Benjamin - 10/21/2015 10:02 AM PSTAttempted to contact patient to schedule appointment but voicemail is not set up yet. elephone Encounter - Yas Simms Cert MA - 10/21/2015 8:15 AM PSTWeds F eb at 4:00. 8 :16 AM PSTTelephone Encounter - Yas Simms Cert MA - 10/20/2015 5:29 PM PSTPe r he would like to see Km in 2 weeks. No xrays needed at that time per DR.Will santamaria. ele phone Encounter - Krissy Benjamin - 10/20/2015 2:10 PM PSTPatient was seen at [facility] for a right shoulder injury. Patient was riding a bull on 10/18/2015 when the injury occ urred. Patient went to the hospital on 10/18/2015. Patient had x-rays and was placed in a sl ing. Called [facility] requesting chart notes and requested imaging be pushed to i-site for revi ew. Please advise and call [phone] signed by Krissy Benjamin at 016 2:13 PM PSTdocumented in this encounter Plan of Treatment Not on filedocumented as of this encounter Visit Diagnoses Not on filedocumented in this encounter"
--- OUTSIDE RECORDS SUMMARY | ~2020-03-11 | XMS | Encounter Summary ---
Demographics + + + | Address | [address] | | | [place] [address] | + + + | Home Phone [...] + + + | Author | [facility] | | | and [place] | + + + | Organization | [facility] | | | and [place] | + + + | Address | Unknown | + + + | Phone | Unavailable | + + + Support + + + + + | Name | Relationship | Address | Phone | + + + + + | Vidal Aceves/Cristiana White | ECON | [address] | | | [place] | | [place] [address] | | + + + + + | Juan Carlos Mejia | ECON | Unknown | | + + + + + Care Team Providers + +------+ + | Care Rehabilitation Tech Name | Role | Phone | + +------+ + | No, Physician | PCP | Unavailable | + +------+ + Reason for Visit + + + | Reason | Comments | + + + | Hand Injury | | + + + Encounter Details +--------+ + + + + | Date | Type | Department | Care Team | Description | +--------+ + + + + | 07/06/ | Emergency | [facility] | Sorin Biswas MD | Hand sprain, left, | | 2014 | | [facility] | [address] | initial encounter | | | | CENTER [address] | [place], [place] | (Primary Dx); Hand | | | | [place] | [address] | contusion, left, | | | | [address] | | initial encounter | | | | [phone] | | | +--------+ + + + [...] + + + | Blood Pressure | 126/72 | 07/06/2015 7:25 PM | | | | | PDT | | + + + + + | Pulse | 64 | 07/06/2015 7:25 PM | | | | | PDT | | + + + + + | Temperature | 36.4 C (97.5 F) | 07/06/2015 7:25 PM | | | | | PDT | | + + + + + | Respiratory Rate | 21 | 07/06/2015 7:25 PM | | | | | PDT | | + + + + + | Oxygen Saturation | 96% | 07/06/2015 7:25 PM | | | | | PDT | | + + + + + | Inhaled Oxygen | - | - | | | Concentration | | | | + + + + + | Weight | 72.6 kg (160 lb) | 07/06/2015 7:25 PM | | | | | PDT | | + + + + + | Height | 177.8 cm (5' 10") | 07/06/2015 7:25 PM | | | | | PDT | | + + + + + | Body Mass Index | 22.96 | 07/06/2015 7:25 PM | | | | | PDT | | + + + + + documented in this encounter Discharge Instructions Instructions Sorin Biswas MD - 07/06/2015Ice and elevation to help with swelling AIDA wrap to help with compression and swelling Return for worsening symptoms, other complaints documented in this encounter Medications at Time of Discharge + + + +---------+ + + | Medication | Sig | Dispensed | Refills | Start | End Date | | | | | | Date | | + + + +---------+ + + | | Take 1 tablet by | 15 | 0 | 07/06/20 | | | HYDROcodone-acetamin | mouth every 6 hours | tablet | | 15 | 5 | | ophen (NORCO) 5-325 | as needed for Pain. | | | | | | mg per tablet | | | | | | + + + +---------+ + + documented as of this encounter ED Notes Sorin Biswas MD - 07/06/2015 7:30 PM PDT Emergency Department Encounter Note CHIEF COMPLAINT: Hand pain and swelling HPI Km Hoff is a 19 y.o. male who presents to the Emergency Department with hand pain and swelling that started yesterday when he injured it while riding a bull. He did not hav e much swelling yesterday but did have CMV amount of pain with the swelling increased signif icantly today. He's not noted any redness. He's not a previous surgery or injury to that h and before. There is no other injury associated with the accident. PAST MEDICAL & SURGICAL HISTORY History reviewed. No pertinent past medical history. Past Surgical History Procedure Laterality Date Orthopedic surgery Right elbow. Tonsillectomy REVIEW OF SYSTEMS As in history of present illness. PHYSICAL EXAM VITAL SIGNS: (first vital signs):Temp: 36.4 C (97.5 F) Pulse: 64 Resp: 21 SpO2: 96 % BP : 126/72 mmHg He is alert oriented appears well nontoxic Focus examination of his left hand reveals dorsal swelling diffusely he has diffuse tendern ess, no crepitus step-offs or obvious deformity is a pain with wrist range of motion with fl exion and extension brisk cap refill distal sensation intact IMAGING STUIDES (X-Rays interpreted by ED Physician) X-ray hand without acute X-ray wrist without acute ASSESMENT & ED COURSE: Patient here with soft tissue injury to his hand. Not in acute fracture. Recommend compre ssion ice and some pain control. He is to follow-up with orthopedics if he is not improving . Otherwise return for worsening symptoms other complaints. DISPOSITION: Patient discharged home FINAL IMPRESSION: Hand contusion Hand sprain Sorin Biswas MD 07/06/152048 documente d in this encounter Miscellaneous Notes ED Triage Notes - Yas Head RN - 07/06/2015 7:23 PM PDTPatient chief complaint left hand pain and swelling. 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 documented in this encounter Plan of Treatment Not on filedocumented as of this encounter Procedures + +--------+ + + + | Procedure Name | Priori | Date/Time | Associated Diagnosis | Comments | | | ty | | | | + +--------+ + + + | XR HAND LEFT 3 + VW | STAT | 07/06/2015 | | Results for this | | | | 7:42 PM | | procedure are in the | | | | PDT | | results section. | + +--------+ + + + | XR WRIST LEFT 3 + VW | STAT | 07/06/2015 | | Results for this | | | | 7:41 PM | | procedure are in the | | | | PDT | | results section. | + +--------+ + + + documented in this encounter Results XR Hand Left 3 + Vw (07/06/2015 7:42 PM PDT) + + | Specimen | + + | | + + + + + | Narrative | Performed At | + + + | LEFT HAND AND WRIST: 07/06/2015 7:31 PM CLINICAL HISTORY: HAND | [facility] | | INJURY COMPARISON: None FINDINGS: AP, lateral and oblique | | | views of the left hand and wrist. No fracture or focal bony | | | abnormality. Joint relationships are normally maintained. No | | | radiographic soft tissue abnormality. IMPRESSION - Negative study | | | of the left hand and wrist. Dictated and Signed by: Vivek | | | MD Renny Electronically signed: 07/07/2015 7:44 AM | | + + + + + | Procedure Note | + + | Dominic, Rad Results In - 07/07/2015 7:47 AM PDT LEFT HAND AND WRIST: 07/06/2015 7:31 PM | | | | CLINICAL HISTORY: HAND INJURY | | | | COMPARISON: None | | | | FINDINGS: AP, lateral and oblique views of the left hand and wrist. | | | | No fracture or focal bony abnormality. Joint relationships are normally | | maintained. No radiographic soft tissue abnormality. | | | | IMPRESSION - Negative study of the left hand and wrist. | | | | Dictated and Signed by: Vivek Lawson MD | | Electronically signed: 07/07/2015 7:44 AM | + + + +---------+ + + | Performing | Address | City/State/Zipcode | Phone Number | | Organization | | | | + +---------+ + + | [facility] | | | | + +---------+ + + XR Wrist Left 3 + Vw (07/06/2015 7:41 PM PDT) + + | Specimen | + + | | + + + + + | Narrative | Performed At | + + + | LEFT HAND AND WRIST: 07/06/2015 7:31 PM CLINICAL HISTORY: HAND | [facility] | | INJURY COMPARISON: None FINDINGS: AP, lateral and oblique | | | views of the left hand and wrist. No fracture or focal bony | | | abnormality. Joint relationships are normally maintained. No | | | radiographic soft tissue abnormality. IMPRESSION - Negative study | | | of the left hand and wrist. Dictated and Signed by: Vivek Rosales | | MD Renny Electronically signed: 07/07/2015 7:44 AM | | + + + + + | Procedure Note | + + | Dominic, Rad Results In - 07/07/2015 7:47 AM PDT LEFT HAND AND WRIST: 07/06/2015 7:31 PM | | | | CLINICAL HISTORY: HAND INJURY | | | | COMPARISON: None | | | | FINDINGS: AP, lateral and oblique views of the left hand and wrist. | | | | No fracture or focal bony abnormality. Joint relationships are normally | | maintained. No radiographic soft tissue abnormality. | | | | IMPRESSION - Negative study of the left hand and wrist. | | | | Dictated and Signed by: Vivek Lawson MD | | Electronically signed: 07/07/2015 7:44 AM | + + + +---------+ + + | Performing | Address | City/State/Zipcode | Phone Number | | Organization | | | | + +---------+ + + | [facility] | | | | + +---------+ + + documented in this encounter Visit Diagnoses + + | Diagnosis | + + | Hand sprain, narciso, initial encounter - Primary | + + | Hand contusion, left, initial encounter | + + documented in this encounter
--- OUTSIDE RECORDS SUMMARY | ~2020-03-11 | XMS | Encounter Summary ---
Demographics + + + | Address | [address] | | | [place] [address] | + + + | Home Phone | | + + + | Preferred Language | Unknown | + + + | Marital Status | Single | + + + | Holiness Affiliation | [id number] | + + + | Race | Unknown | + + + | Ethnic Group | Unknown | + + + Author + + + | Author | [facility] | | | and [place] | + + + | Organization | [facility] | | | and [place] | + + + | Address | Unknown | + + + | Phone | Unavailable | + + + Support + + + + + | Name | Relationship | Address | Phone | + + + + + | Vidal Aceves/Cristiana White | ECON | [address] | | | [place] | | [place] [address] | | + + + + + | Juan Carlos Mejia | ECON | Unknown | | + + + + + Care Team Providers + +------+ + | Care Tent Worker Name | Role | Phone | + +------+ + | No, Physician | PCP | Unavailable | + +------+ + Reason for Visit + + + | Reason | Comments | + + + | Initial Assessment | | + + + Evaluate & Treat (Routine) +--------+--------+ + + + + | Status | Reason | Specialty | Diagnoses / | Referred By | Referred To | | | | | Procedures | Contact | Contact | +--------+--------+ + + + + | Closed | | Rehabilitatio | Diagnoses | [place], | Do Not Use | | | | n | Anterior | MD Sheldon | - [facility] | | | | | dislocation | [address] | [address] | | | | | of right | [address] | [address] | | | | | humerus, | [address] | [place], | | | | | subsequent | [place], [place] | [place] [address] | | | | | encounter | [address] | Phone: | | | | | Other | Phone: | [phone] | | | | | instability, | [phone] | Fax: | | | | | right | Fax: | [phone] | | | | | shoulder | [phone] | | | | | | S43.014D | | | | | | | (ICD-10-CM) | | | | | | | - Anterior | | | | | | | dislocation | | | | | | | of right | | | | | | | humerus, | | | | | | | subsequent | | | | | | | encounter | | | | | | | Procedures | | | | | | | [facility] EVAL | | | +--------+--------+ + + + + Encounter Details +--------+---------+ + + + | Date | Type | Department | Care Team | Description | +--------+---------+ + + + | 03/24/ | Office | [facility] | Sheldon Montgomery, | Instability of right | | 2017 | Visit | [facility] PT | [address] | shoulder joint | | | | OP [address] | [address] | (Primary Dx); | | | | [place] | [place] [address] | Anterior dislocation | | | | [address] | [phone] | of right humerus, | | | | [phone] | | subsequent encounter | | | | | Pascual Logan, PT | | | | | | [address] | | | | | | [place] [address] | | | | | | [phone] | | | | | | | [...] this encounter Last Filed Vital Signs + +---------+ + + | Vital Sign | Reading | Time Taken | Comments | + +---------+ + + | Blood Pressure | 116/68 | 03/24/2017 9:59 AM | | | | | PDT | | + +---------+ + + | Pulse | 75 | 03/24/2017 9:59 AM | | | | | PDT | | + +---------+ + + | Temperature | - | - | | + +---------+ + + | Respiratory Rate | - | - | | + +---------+ + + | Oxygen Saturation | - | - | | + +---------+ + + | Inhaled Oxygen | - | - | | | Concentration | | | | + +---------+ + + | Weight | - | - | | + +---------+ + + | Height | - | - | | + +---------+ + + | Body Mass Index | - | - | | + +---------+ + + documented in this encounter Progress Notes Pascual Logan - 03/24/2017 9:45 AM PDT [facility] PT OP [address] [place] [address] Physical Therapy Initial Assessment Date: 03/24/2017 Patient Information Patient Name: Km Hoff Date of : 1995 Age: 21 y.o. History Problem Anterior Dislocation of Right Humerus Instability of Right Shoulder Joint Mechanism of injury: Trauma History of symptoms: Patient reports on 02/16/2017 right shoulder surgery after anterior shou lder dislocation in January 2017. States this is his second right shoulder labral repair due to dislocation. 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 Was in a sling for five weeks and stopped wearing it this week due to returning to work. Previous level of function and limitations: Prior to January 2017, no restrictions. 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 Living situation: Live with parents. Social History Social History Marital status: Single Spouse name: N/A Number of children: N/A Years of education: N/A Social History Main Topics Smoking status: Former Smoker Packs/day: 0.10 Years: 2.00 Types: Cigarettes Smokeless tobacco: Current User Types: Chew Alcohol use 1.8 oz/week 3 Cans of beer per week Drug use: Types: Marijuana Sexual activity: Not Asked Other Topics Concern None Social History Narrative None Encounter Diagnoses Code Name Primary? M25.311 Instability of right shoulder joint Yes S43.014D Anterior dislocation of right humerus, subsequent encounter Date of Onset: 02/16/2017 Referring Provider: Sheldon Montgomery MD No history on file. History reviewed. No pertinent past medical history. Past Surgical History: Procedure Laterality Date KNEE ARTHROSCOPY Left 07/11/2015 Procedure: Left Knee A.C.L. Reconstruction w/ Autograft and arthroscopy; Surgeon: Khari Carl MD; Location: [facility] OR ORTHOPEDIC SURGERY Right elbow. SHOULDER ARTHROSCOPY Right 12/17/2015 Procedure: Right Shoulder Scope, Anterior Labral Repair, Capsular Shift; Surgeon: Griffin Nixon DO; Location: [facility] OR TONSILLECTOMY History reviewed. No pertinent family history. Developmental History No Known Allergies Prior Treatment: None within the last sixty days Rehab Precautions Flowsheet Row Office Visit from 03/24/2017 in [facility] PT OP Rehab Precautions Precautions Comments labral repair protocol Learning Style Patient's Optimum Learning Style: listening, performance of task Abuse Assessment Do you feel safe in your current relationship or home?: Yes Fall Risk: Fall Risk 2 or more falls in the past year?: No Pain Assessment: Pain Scale Used: NUMERIC Pain Rating Pre Assessment: 5 Location: right shoudler SHOULDER EVALUATION: SUBJECTIVE: History of Presenting Problem: Km Hoff is a 21 y.o. male who presents to therapy with right shoulder pain s/p labral repair after anterior shoulder dislocation. Functional Limitations: Lifting, pushing, and pulling Precaution/special problems: Labral repair protocol Patient s Goals: Increase shoulder motion and strength. Reduce pain. OBJECTIVE: Vitals: Vital Signs Pulse: 75 BP: 116/68 MEWS Total Score: 0 Observation/Posture/Alignment: Minor right shoulder rotator cuff atrophy. Forward head and protracted shoulders bilateral. ROM: Initial Assessment Initial Assessment Progress Note / Discharge Progress Note / Discha rge Cervical: WNL Shoulder: Left Right Left Right Flexion: WNL 90 Abduction: WNL 90 ER at neutral: WNL 5 IR Behind Back: WNL NT Elbow Flexion: WNL WNL Elbow Extension: WNL WNL Strength Testing: Initial Assessment Initial Assessment Progress Note / Discharge Progress Note / Discharge Left Right Left Right Supraspinatus: 5 3 Infraspinatus: 5 3 Subscapularis: 5 3 Deltoid: 5 3 Biceps: 5 3 Triceps: 5 5 Scapular Stabilizers: 4 4 Accessory Joint Mobility: Right shoulder hypomobility Palpation: Multiple trigger points right rotator cuff muscles Neurovascular: Reflexes WNL Special Tests: Initial Assessment Initial Assessment Progress Note / Discharge Progress Not e / Discharge Left Right Left Right Scapulohumeral Rhythm: Minor winging Moderate winging Outcome Measure: Initial Assessment Progress Note / Discharge DASH: 36/100% (A score of 0% = No Functional Disability of the UE) Standardized Tests: QuickDASH (QD) Open a tight or new jar: 2 - Mild Difficulty Do heavy household appliance installer: 1 - No Difficulty Carry a shopping bag or briefcase: 2 - Mild Difficulty Wash your back: 3 - Moderate Difficulty Use a Knife to cut food: 1 - No Difficulty Recreational Activities which impact the UE: 5 - Unable Interfered with Social Activities: 4 - Quite a bit Limit Work or Regular Daily Activities: 4 - Very Limited Arm, shoulder or hand pain: 3 - Moderate Tingling in arm, shoulder or hand: 1 - None Difficulty Sleeping due to pain in UE: 1 - No Difficulty QuickDASH Work Disability/Symptom Score (Calculated): -25 QuickDASH Mean Score (Calculated): 2.45 QuickDASH Disability/Symptom Score (Calculated): 36.36 QuickDASH Work QuickDASH Work Disability/Symptom Score (Calculated): -25 Special Tests: Assessment Patient presents to physical therapy with right shoulder pain s/p right labral repair 017 after anterior shoulder dislocation two weeks prior. Objective exam reveals impairments with glenohumeral mobility, range of motion, strength, and coordination. 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 Signs and symptoms are consistent with right shoulder instability s/p la bral repair and history of multiple dislocations. Complexities contributing to frequency an d duration of therapy: multiple dislocations and full work duties requiring repetitive pushi ng, pulling, and lifting up to 100lbs. Patient provided with initial home exercise program a nd was able to return demonstration for all exercises. Rehabilitation potential: Patient demonstrates excellent potential to achieve established g oals and good potential to achieve prior status to address the documented impairments by par ticipating in skilled physical therapy services. Goals: Patient Specific Functional Scale Goal 1: Demonstrate functional shoulder ROM to complete A DL s including reaching for bathing, dressing & grooming activities of shampooing or dryin g hair. Patient Specific Functional Scale Goal 1 Status: 0 Patient Specific Functional Scale Goal 2: Patient will demonstrate shoulder strength to lif t and carry 50 lbs. Patient Specific Functional Scale Goal 2 Status: 0 Patient Specific Functional Scale Goal 3: Reduce DASH disability score by 10% points or gre ater indicating improved function with ADLs Patient Specific Functional Scale Goal 3 Status: 0 Plan Date of Onset: 02/16/2017 Start of Care Date: 03/24/2017 Requested # of Visits: 20 visits 2x/week and 1x/week for three months Certification From: 03/24/2017 Certification To: 06/22/2017 Treatment Plan/Interventions PT [id number] - Therapeutic [id number] - Neuromuscular [id number] - Therap eutic [id number] - Manual [id number] - Self Care/Home [id number] - [id number] 14 - Electrical Stimulation, [id number] - Electrical Stimulation, [id number] - Vasop neumatic Therapy Patient and/or family has indicated understanding of treatment needs and actively participa eloisa in the creation of this plan for care. Today's Treatment Start Time: 944 Stop time: 1044 Duration: 60 minutes Timed Treatment Codes: 30 minutes # of PT Visits: 1 Objective: Education of rehab timeline, focus and expectations. Education of pain modulation with use of ice/MHP, positioning, pacing and movement strategies for self care. Therapeutic exercises: Supine shoulder ER with dowel to 5deg 2x10 Supine shoulder flexion with dowel to 90deg 2x10 Prone scapular retraction "back and down" 2x10 Prone scapular W "back" 2x10 Prone shoulder pendulum 2x10 Kinesio tape for upper trap inhibition, pain reduction, and supraspinatus/infraspinatus ac tivation Next Visit: Continue progressing shoulder mobility with sudha system. Electronically signed by: Pascual Logan, 03/24/2017 11:12 Patient Name: Km Hoff/: 1995/ documented in th is encounter Plan of Treatment Not on filedocumented as of this encounter Visit Diagnoses + + | Diagnosis | + + | Instability of right shoulder joint - Primary Other joint derangement, not elsewhere | | classified, shoulder region | + + | Anterior dislocation of right humerus, subsequent encounter | + + documented in this encounter
--- OUTSIDE RECORDS SUMMARY | ~2020-03-11 | XMS | Encounter Summary ---
Demographics + + + | Address | [address] | | | [place] [address] | + + + | Home Phone [...] + | Author | [facility] | | | and [place] | + + + | Organization | [facility] | | | and [place] | + + + | Address | Unknown | + + + | Phone | Unavailable | + + + Support + + + + + | Name | Relationship | Address | Phone | + + + + + | Vidal Aceves/Cristiana White | ECON | [address] | | | [place] | | [place] [address] | | + + + + + | Juan Carlos Mejia | ECON | Unknown | | + + + + + Care Team Providers + +------+ + | Care Setter Machine Name | Role | Phone | + [...] | +--------+ + + + + | 03/10/ | Documentati | [facility] | Pascual Logan, PT | No Show | | 2017 | on | [facility] PT | [address] [facility] | | | | | OP [address] | [place] [address] | | | | | [place] | [phone] | | | | | [address] | | | | | | [phone] | | | +--------+ + + + [...] documented as of this encounter Progress Notes Pascual Logan - [facility]10[facility]2017 [facility] [address] [place] [address] Cancellation/No Show Date: 03/10/2017 Patient Information Patient Name: Km Hoff Date of : 1995 Age: 21 y.o. Reason for missed visit: No show Phone call placed: yes - medical front desk coordinator called to reschedule initial evaluation, no answer. Bailey s not have voicemail set up. Plan: Attempt to reschedule. Electronically signed by: Pascual Logan, 03/10/2017 9:34 Patient Name: Km Hoff/: 1995/ documented in this encounte r Plan of Treatment Not on filedocumented as of this encounter Visit Diagnoses Not on filedocumented in this encounter"
--- OUTSIDE RECORDS SUMMARY | ~2020-03-11 | XMS | Encounter Summary ---
Demographics + + + | Address | [address] | | | [place] [address] | + + + | Home Phone | | + + + | Preferred Language | Unknown | + + + | Marital Status | Single | + + + | Hinduism Affiliation | 1041 | + + + | Race | Unknown | + + + | Ethnic Group | Unknown | + + + Author + + + | Author | [facility] | | | and [place] | + + + | Organization | [facility] | | | and [place] | + + + | Address | Unknown | + + + | Phone | Unavailable | + + + Support + + + + + | Name | Relationship | Address | Phone | + + + + + | Vidal Aceves/Cristiana White | ECON | [address] | | | [place] | | [place] [address] | | + + + + + | Juan Carlos Mejia | ECON | Unknown | | + + + + + Care Team Providers + +------+ + | Care Fine Grader Name | Role | Phone | + +------+ + | No Physician | PCP | Unavailable | + +------+ + Reason for Visit + + + | Reason | Comments | + + + | New Patient | New pt: Left knee injury DOI: 06/22/2015-OR-4:00 pm- Bull riding- | | | the knee caught in his rope | + + + Evaluate & Treat (Urgent) +--------+--------+ + + + + | Status | Reason | Specialty | Diagnoses / | Referred By | Referred To | | | | | Procedures | Contact | Contact | +--------+--------+ + + + + | Closed | | Orthopedic | Diagnoses | Emergency, | [place], | | | | Surgery | Left knee | MD Rosanna | Khari Linder MD | | | | | injury RESIDENTIAL PROGRAM MANAGER | | [address] | | | | | LEFT KNEE | | [place], | | | | | INJURY WHILE | | [place] [address] | | | | | BULL RIDING | | Phone: | | | | | DOI | | [phone] | | | | | 06-22-2015 | | Fax: | | | | | [email or web address] | | [phone] | | | | | *NFN* | | | | | | | Procedures | | | | | | | NEW PATIENT | | | +--------+--------+ + + + + Encounter Details +--------+---------+ + + + | Date | Type | Department | Care Team | Description | +--------+---------+ + + + | 07/03/ | Office | [facility] | Khari Carl, | ACL (anterior | | 2015 | Visit | ORTHOPEDIC SURGERY | MD Shil[address] | cruciate ligament) | | | | [address] | [place] | rupture, unspecified | | | | [place] | [address] | laterality, initial | | | | [address] | | encounter (Primary | | | | [phone] | | Dx) | +--------+---------+ + + + Social History [...] Weight | 72.6 kg (160 lb) | 07/03/2015 10:59 AM | | | | | PDT | | + + + + + | Height | 177.8 cm (5' 10") | 07/03/2015 10:59 AM | | | | | PDT | | + + + + + | Body Mass Index | 22.96 | 07/03/2015 10:59 AM | | | | | PDT | | + + + + + documented in this encounter Progress Notes Khari Carl MD - 07/03/2015 11:38 AM PDTFormatting of this note might be different fro m the original. History of present illness: Km is a 19 y.o. male who presents with a chief complaint of left knee injury Patient was injured while bull riding 2 weeks ago He caught his leg as [...] does not trust his knee as it wi ll buckle on him with change of direction [...] Social History Narrative Review of Systems Eyes: [] Double vision [] Glasses/contacts [] Failing vision Ear/Nose/Throat: [] Frequent Colds [] Sinus Disease [] Nose obstruction [] Sneezing Spells [] Change in taste [] Artificial teeth [] Ears ringing [] Ear pain [] Hearing loss [] Teeth problems [] Hoarseness [] Neck swelling [] Sore throat [] Congestion [] Nosebleeds [] Nasal allergies Respiratory: [] Asthma/Wheezing [] Pneumonia [] Night sweats [] Shortness of breath [] Chronic cough [] Coughing up blood [] Exposure to tuberculosis Cardiovascular: [] Heart Problems [] Hypertension [] Heart murmur [] Palpitations [] Rheumatic fever [] Phlebitis [] Chest pain [] Ankle swelling [] Leg cramps [] Racin g heart [] Skipping beats [] Blood clots Gastrointestinal: [] Abdominal pain [] Heartburn [] Blood from rectum [] Colitis [] Gallbladder problems [] Troubl e swallowing [] Bloated stomach [] Change in stools [] Vomiting blood [] Nausea [] Hemorrhoids [] Jaundice [ ] Hepatitis [] Diarrhea [] Constipation [] Diverticulitis Urinary Tract: [] Painful urination [] Kidney Stones [] Any urine leakage [] Weak urine stream [] Night urination [] Urine infections [] Bedwetting [] Blood in urine Skin: [] Skin rashes [] Itching/Burning [] Skin bruises easil y [] Artificial tanning [] Skin cancer [] Hair loss [] Changes in moles Musculoskeletal: [] Physical handicaps [] Back or shoulder pain []Rheumatoid disease [] Osteoarthritis [x] Joint pain [x] Joint swelling []Gout [] Leg cramps at night Neurological: [] Headaches [] Seizures [] Stroke/TIA [] Faintness [] Tremors [] Numbness [] Dizziness [] Changes in handwriting [] Memory loss [] Shooting pains Psychiatric: [] Depression [] Suicidal thoughts [] Sleep pattern changes [] Appetite changes [] Recent counseling [] Nervousness/anxiety [] Physical violence [] Marital problems Endocrine: [] Thyroid [] Diabetes Systemic: []Weight loss/gain (over 10 lbs) []Fever/chills []Fatigue [] Sleeping Difficulties [] Speech change [] Voice change Filed Vitals: 07/03/15 1059 PainSc: 2 PainLoc: Knee Estimated body mass index is 22.96 kg/(m^2) as calculated from the following: Height as of this encounter: 1.778 m (5' 10"). Weight as of this encounter: 72.576 kg (160 lb). Physical examination:Patient is alert and oriented and in no acute distress. Left knee braces removed and his knee [...] with his activity level he is not to do well with an incompete nt ACL I think the MCL injury makes [...] timing of surgery and I think he is actually worked his way through t he acute inflammatory phase already and has decent range of motion with minimal swelling He would like to proceed with scheduling as early as possible The above note was dictated using [employer] voice recognition software. It may have not been p roofread in entirety. Minor errors in grammar may occur. documented in this en counter Plan of Treatment Not on filedocumented as of this encounter Visit Diagnoses + + | Diagnosis | + + | ACL (anterior cruciate ligament) rupture, unspecified laterality, initial encounter - | | Primary | + + documented in this encounter
--- OUTSIDE RECORDS SUMMARY | ~2020-03-11 | XMS | Encounter Summary ---
Demographics + + + | Address | [address] | | | [place] [address] | + + + | Home Phone | | + + + | Preferred Language | Unknown | + + + | Marital Status | Single | + + + | Congregation Affiliation | 1041 | + + + | Race | Unknown | + + + | Ethnic Group | Unknown | + + + Author + + + | Author | [facility] | | | and [place] | + + + | Organization | [facility] | | | and [place] | + + + | Address | Unknown | + + + | Phone | Unavailable | + + + Support + + + + + | Name | Relationship | Address | Phone | + + + + + | Vidal Aceves/Cristiana White | ECON | [address] | | | [place] | | [place] [address] | | + + + + + | Juan Carlos Mejia | ECON | Unknown | | + + + + + Care Team Providers + +------+ + | Care Strategic Development Manager Name | Role | Phone | + +------+ + | No, Physician | PCP | Unavailable | + +------+ + Reason for Visit + +--------+ + | Reason | Onset | Comments | | | Date | | + +--------+ + | Medication Refill | 09/08/ | | | | 2014 | | + +--------+ + Encounter Details +--------+--------+ + + + | Date | Type | Department | Care Team | Description | +--------+--------+ + + + | 09/08/ | Refill | [facility] | Khari Carl, | Medication Refill | | 2014 | | ORTHOPEDIC SURGERY | [address] | | | | | [address] | [place] | | | | | [place] | [address] | | | | | [address] | | | | | | [phone] | | | +--------+--------+ + + + [...] this encounter Miscellaneous Notes Telephone Encounter - Krissy Benjamin - 09/08/2015 11:27 AM PSTPatient's mother Cristiana Hoff 09/04/1969 picked up script with ID # [id number] [facility] [id number]. elephone Encounter - Yas Simms Cert MA - 09/08/2015 10:17 AM PST*Deferred to Dr. Carl* elephon e Encounter - Helen Atwood - 09/08/2015 9:10 AM PSTPatient calling for a refill on his h ydrocodone , He said 7.5-325 mg would be good. We can call his mother Cristiana when ready for vegetable picker at [phone], and she or his fathe r will vegetable picker with Rx. doc umented in this encounter Plan of Treatment Not on filedocumented as of this encounter Visit Diagnoses Not on filedocumented in this encounter"
--- OUTSIDE RECORDS SUMMARY | ~2020-03-11 | XMS | Encounter Summary ---
Demographics + + + | Address | [address] | | | [place] [address] | + + + | Home Phone | | + + + | Preferred Language | Unknown | + + + | Marital Status | Single | + + + | Oriental Orthodox Affiliation | 1041 | + + + | Race | Unknown | + + + | Ethnic Group | Unknown | + + + Author + + + | Author | [facility] | | | and [place] | + + + | Organization | [facility] | | | and [place] | + + + | Address | Unknown | + + + | Phone | Unavailable | + + + Support + + + + + | Name | Relationship | Address | Phone | + + + + + | Vidal Aceves/Cristiana White | ECON | [address] | | | [place] | | [place] [address] | | + + + + + | Juan Carlos Mejia | ECON | Unknown | | + + + + + Care Team Providers + +------+ + | Care Waiter/Waitress Club Name | Role | Phone | + +------+ + | No, Physician | PCP | Unavailable | + +------+ + Reason for Visit + + + | Reason | Comments | + + + | Discharge Without | | | Visit | | + + + Encounter Details +--------+ + + + + | Date | Type | Department | Care Team | Description | +--------+ + + + + | 06/28/ | Documentati | [facility] | Pascual Logan, PT | Discharge Without | | 2017 | on | [facility] | [address] [facility] | Visit | | | | OP [address] | [place] [address] | | | | | [place] | [phone] | | | | | [address] | | | | | | [phone] | | | +--------+ + + + [...] this encounter Progress Notes Pascual Logan - 06/28/2017 3:13 PM PDT [facility] THERAPY PT OP [address] [place] [address] Physical Therapy Discharge Note This discharge is associated with the evaluation completed on 03/24/2017. Date: 06/28/2017 Patient Information Patient Name: Km Hoff Date of : 1995 Age: 21 y.o. Encounter Diagnoses Code Name Primary? M25.311 Instability of right shoulder joint Date of Onset: 02/16/2017 Referring Provider: Sheldon Montgomery MD Total Number of Visits Completed: 4 Total Cancellations: 1 Total No Shows: 3 Patient has failed to return to therapy for further treatment. Goal status is unknown at th is time. This note serves as discharge from therapy. Patient did not show for appointment(s). Multiple attempts were made to contact patient broderick ngo rescheduling missed appointments and our same day appointment options however patient failed to return any phone calls. At this time we find it necessary to discharge this patie nt from therapy services. The last progress note or the patients initial evaluation will serve as objective status fo r purposes of discharge. Electronically signed by: Pascual Logan, 06/28/2017 15:13 Patient Name: Km Hoff/: 1995/ s igned by Pascual Logan at 06/28/2017 3:17 PM PDTdocumented in this encounter Plan of Treatment Not on filedocumented as of this encounter Visit Diagnoses + + | Diagnosis | + + | Instability of right shoulder joint Other joint derangement, not elsewhere | | classified, shoulder region | + + documented in this encounter"
--- OUTSIDE RECORDS SUMMARY | ~2020-03-11 | XMS | Encounter Summary ---
Demographics + + + | Address | [address] | | | [place] [address] | + + + | Home Phone | | + + + | Preferred Language | Unknown | + + + | Marital Status | Single | + + + | Congregation Affiliation | 1041 | + + + | Race | Unknown | + + + | Ethnic Group | Unknown | + + + Author + + + | Author | [facility] | | | and [place] | + + + | Organization | [facility] | | | and [place] | + + + | Address | Unknown | + + + | Phone | Unavailable | + + + Support + + + + + | Name | Relationship | Address | Phone | + + + + + | Vidal Aceves/Cristiana White | ECON | [address] | | | [place] | | [place] [address] | | + + + + + | Juan Carlos Mejia | ECON | Unknown | | + + + + + Care Team Providers + +------+ + | Care Industrial Service Technician Name | Role | Phone | [...] | | | | Diagnoses | | [place], | | | | | [place] | | Jarrett, DO | | | | | glenoid | | [address] | | | | | labrum | | [address] [place] | | | | | lesion of | | [place] | | | | | right | | [address] | | | | | shoulder, | | Phone: | | | | | initial | | [phone] | | | | | encounter | | Fax: | | | | | Dislocation | | [phone] | | | | | of right | | | | | | | shoulder | | | | | | | joint, | | | | | | | initial | | | | | | | encounter | | | | | | | [place] | | | | | | | glenoid | | | | | | | labrum | | | | | | | lesion of | | | | | | | right | | | | | | | shoulder, | | | | | | | initial | | | | | | | encounter | | | | | | | [[id number]], | | | | | | | Dislocation | | | | | | | of right | | | | | | | shoulder | | | | | | | joint, | | | | | | | initial | | | | | | | encounter | | | | | | | [[id number]] | | | | | | | Procedures | | | | | | | [facility] | | | | | | | ARTHROSCOP,S | | | | | | | URG,REPAIR,S | | | | | | | LAP LESION | | | | | | | [facility] | | | | | | | ARTHROSCOP,S | | | | | | | URG,CAPSULOR | | | | | | | RHAPHY | | | +--------+--------+ + + + + Encounter Details +--------+ + + + + | Date | Type | Department | Care Team | Description | +--------+ + + + + | 12/16/ | Anesthesia | [facility] | Enmanuel Ojeda MD | | | 2016 | Event | [facility] | [address] | | | | | [address] | [place] | | | | | [place], [place] | [address] | | | | | [address] | | | | | | [phone] | Barron Allison MD | | | | | | [address] | | | | | | [place] | | | | | | [address] | | | | | | | | +--------+ + + + + Anesthesia Record + + + + + | Procedure Name | Responsible | Anesthesia Start | Anesthesia Stop Time | | | Anesthesiologist | Time | | + + + + + | Right Shoulder | Enmanuel Ojeda MD | 12/17/15 0754 | 12/17/15 0919 | | Scope, Anterior | | | | | Labral Repair, | | | | | Capsular Shift | | | | | (Right Shoulder) | | | | + + + + + +----+---+ + + | Da | T | Event | Comment | | te | i | | | | | m | | | | | e | | | +----+---+ + + | 04 | 0 | An Checkout | Pre-use anesthesia machine/equipment checkout. | | /0 | 7 | | | | 6/ | 3 | | | | 20 | 7 | | | | 16 | | | | +----+---+ + + | | 0 | | | | | 7 | | | | | 4 | | | | | 1 | | | +----+---+ + + | | 0 | Block Start | | | | 7 | | | | | 4 | | | | | 3 | | | +----+---+ + + | | 0 | AN Block | | | | 7 | End | | | | 4 | | | | | 9 | | | +----+---+ + + | | 0 | An Start | Reassessment prior to anesthesia induction/procedure. | | | 7 | | | | | 5 | | | | | 4 | | | +----+---+ + + | | 0 | Antibiotic | | | | 7 | Given | | | | 5 | | | | | 5 | | | +----+---+ + + | | 0 | Preoxygenat | | | | 7 | ed | | | | 5 | | | | | 9 | | | +----+---+ + + | | 0 | An | | | | 8 | Induction | | | | 0 | | | | | 0 | | | +----+---+ + + | | 0 | An | | | | 8 | Intubation | | | | 0 | | | | | 2 | | | +----+---+ + + | | 0 | [place] | | | | 8 | 43-degrees | | | | 1 | | | | | 1 | | | +----+---+ + + | | 0 | First | | | | 8 | Inc/Proc St | | | | 2 | | | | | 5 | | | +----+---+ + + | | 0 | [place] off | | | | 9 | | | | | 0 | | | | | 7 | | | +----+---+ + + | | 0 | Breathing | | | | 9 | Spontaneous | | | | 0 | ly | | | | 7 | | | +----+---+ + + | | 0 | an stop | | | | 9 | data | | | | 1 | | | | | 3 | | | +----+---+ + + | | 0 | An Stop | Patient handed off to recovery nurse. | | | 1 | | | | | 9 | | | +----+---+ + + +------+ | Meds | +------+ + + + | Name | Total | + + + | midazolam | 2 mg | + + + | fentaNYL | 50 mcg | + + + | propofol | 120 mg | + + + | lidocaine 2% | 75 mg | + + + | lidocaine 1% | 3 mL | + + + | ropivacaine 0.5% | 20 mL | + + + | dexamethasone | 10 mg | + + + | ondansetron | 4 mg | + + + | ceFAZolin (ANCEF, KEFZOL) 2 g in | 2 g | | sodium chloride 0.9% 50 mL IVPB | | + + + | lactated ringers (LR) infusion | 1,000 mL | + + + + + | Name | + + | N2O Flow Rate (L/Min) | + + | O2 Flow Rate (L/Min) | + + | Insp O2 | + + | Exp SEV | + + | Air Flow Rate (L/Min) | + + + + | No blood administrations on file. | + + +--------+ + + + | Type | Details | Placement | Removal | +--------+ + + + | Read | 07/11/15; 1235; Left:; knee; | 07/11/15 1235 by | 05/22/18 0323 by | | only - | healed; 05/22/18; 0323 | Savanna Mendes RN | Sylvia Santiago RN | | | | | | | Incisi | | | | | on | | | | +--------+ + + + | Periph | 12/17/15; 0733; [id number] | 12/17/15 0733 by | 12/17/15 1132 by | | eral | catheter system; 18 gauge, 1 09/15 | Mahi Sinclair RN | [place] Alex RN | | IV | in length; distraction, | | | | | intradermal injection, tolerated | | | | | well; no longer indicated; | | | | | 12/17/15; 1132 | | | +--------+ + + + | Airway | Placement Date: 12/17/15; | 12/17/15801 by | 12/17/15927 by | | | Placement Time: 801; Mask | Enmanuel Ojeda MD | Juan Kumar, | | | Ventilation: EZ; Airway Grade: 1; | | RN | | | Airway Type: laryngeal mask, | | | | | cuffed, non-disposable; Size: 4; | | | | | Placement Check: exhaled CO2 | | | | | detection device; Removal Date: | | | | | 12/17/15; Removal Time: 927 | | | +--------+ + + + | Read | 12/17/15; 0831; Right; arm; | 12/17/15830 by | 05/22/18322 by | | only - | healed; 05/22/18; 322 | Savanna Mendes RN | Sylvia Santiago RN | | | | | | | Incisi | | | | | on | | | | +--------+ + + + | Read | 12/17/15; 0841; Right; shoulder; | 12/17/15 0841 by | 05/22/18 0323 by | | only - | healed; 05/22/18; 322 | Savanna Mendes RN | Sylvia Santiago RN | | | | | | | Incisi | | | | | on | | | | +--------+ + + + documented in this encounter Social History + + + +--------+------+ | [...] + + documented as of this encounter OR Notes Anesthesia Postprocedure Evaluation - Enmanuel Ojeda MD - 12/17/2015 9:41 AM PDTFormattin g of this note might be different from the original. ANESTHESIA POSTANESTHESIA EVALUATION [address] 20 y.o. male 1995 [id number] Procedure(s) Right Shoulder Scope, Anterior Labral Repair, Capsular Shift (Right Shoulder) Filed Vitals: 12/17/15 0920 12/17/15 0925 12/17/15 0930 BP: 140/113 138/78 136/86 Pulse: 91 73 76 Temp: Resp: 18 16 13 SpO2: 97% 97% 96% Cooperates? Yes Mental Status Performs simple tasks. Respiratory Satisfactory - Airway patent (self maintained). Cardiovascular Satisfactory Blood pressure and heart rate acceptable Temperature Satisfactory Pain Satisfactory N/V Control Satisfactory Hydration Satisfactory No signs of dehydration Complications None apparent Electronically signed by Enmanuel Ojeda MD 12/17/2015 9:41 [facility] nesthesia Procedure N otes - Enmanuel Ojeda MD - 12/17/2015 8:25 AM PDTAssociated Order(s): ANE NERVE BLOCK CATH ETER NOTEPerineural Procedure Note 12/17/2015 7:49 Nerve block: interscalene-brachial plexus Laterality: right Continuous block with catheter: No Provider requested procedure: Dr Nixon Indication: postoperative analgesia Preprocedure check: patient identified, procedure and rescue equipment checked, preevaluati on including airway assessment complete, risks/benefits discussed, consent obtained, timeout performed, reassessment prior to procedure and monitors applied Patient position: sitting Preparation: chlorhexidine/isopropyl alcohol Introducer used: no Local anesthetic infiltration volume in ml: 3 mL Technique: ultrasound Radiology image stored in patient's chart: ultrasound Needle: insulated and short-bevel Needle length: 4 in Medication administered through: needle Negative findings: no blood aspirated Total volume of local anesthetic solution administered: 20 Ease of procedure: 1 Attempts: easy Comments: The block needle was watched with ultrasound whenever it was advanced Please see anesthesia record or flowsheet for vital sign documentation and see anesthesia r ecord or MAR for all medication documentation. Performing provider: ENMANUEL OJEDA Blasting Entryman: Narda Coyle Electronically Signed by: Enmanuel Ojeda MD ESi date/time: 12/17/2015 8 :25 nesthesia Preprocedur e Evaluation - Enmanuel Ojeda MD - 12/17/2015 7:39 AM PDT ANESTHESIA PREANESTHESIA EVALUATION [address] 20 y.o. male 1995 [id number] Procedure(s): Right Shoulder Scope, Anterior Labral Repair, Capsular Shift (Right Shoulder) Medical history, anesthesia, medications, allergy, NPO status verified histories reviewed. Review of Systems / Med History Pulmonary No acute pulmonary concerns. Psychology Negative except where noted below. Physical Exam Airway MP I, TM >3 FB, Mouth opening >2 FB. Neck: full ROM, extends >30 degrees. Jaw protrusi on normal. Dental Grossly normal except where noted below.; CV Rhythm regular. Rate Normal. (-) murmur. Pulm Clear to auscultation bilaterally. Neuro Grossly normal. Anesthesia Plan ASA 1 Type: General. Induction: Intravenous. Potential problems: None anticipated. Monitors: Standard ASA monitors. Consent statement:Anesthetic plan, alternatives, risks and benefits discussed with patient and significant other. Risks discussed included (but were not limited to): sore throat, respiratory events, heart problems, dental injury, . Consenting person understands and agrees to proceed. documented in this enc ounter Plan of Treatment Not on filedocumented as of this encounter Procedures + +--------+ + + + | Procedure Name | Priori | Date/Time | Associated Diagnosis | Comments | | | ty | | | | + +--------+ + + + | ANE NERVE BLOCK | Routin | 12/17/2015 | | Results for this | | CATHETER NOTE | e | 8:28 AM | | procedure are in the | | | | PDT | | results section. | + +--------+ + + + documented in this encounter Results Anesthesia Perineural Note (12/17/2015 8:28 AM PDT) + + + | Narrative | Performed At | + + + | Enmanuel Ojeda MD 12/17/2015 8:28 Perineural Procedure Note | | | 12/17/2015 7:49 Nerve block: interscalene-brachial plexus | | | Laterality: right Continuous block with catheter: No Provider | | | requested procedure: Dr Nixon Indication: postoperative analgesia | | | Preprocedure check: patient identified, procedure and rescue | | | equipment checked, preevaluation including airway assessment | | | complete, risks/benefits discussed, consent obtained, timeout | | | performed, reassessment prior to procedure and monitors applied | | | Patient position: sitting Preparation: chlorhexidine/isopropyl | | | alcohol Introducer used: no Local anesthetic infiltration volume in | | | ml: 3 mL Technique: ultrasound Radiology image stored in patient's | | | chart: ultrasound Needle: insulated and short-bevel Needle length: 4 | | | in Medication administered through: needle Negative findings: no | | | blood aspirated Total volume of local anesthetic solution | | | administered: 20 Ease of procedure: 1 Attempts: easy Comments: | | | The block needle was watched with ultrasound whenever it was | | | advanced Please see anesthesia record or flowsheet for vital sign | | | documentation and see anesthesia record or MAR for all medication | | | documentation. Performing provider: ENMANUEL OJEDA Blasting Entryman: | | | Narda Coyle Electronically Signed by: Enmanuel Ojeda MD | | | ESig date/time: 12/17/2015 8:25 | | + + + documented in this encounter Visit Diagnoses Not on filedocumented in this encounter Administered Medications + +--------+ +------+------+------+ | Medication Order | MAR | Action | Dose | Rate | Site | | | Action | Date | | | | + +--------+ +------+------+------+ | ceFAZolin (ANCEF, KEFZOL) 2 g | Given | 12/17/19 | 2 g | | | | in sodium chloride 0.9% 50 mL | | 16 7:55 | | | | | IVPB 2 g, Intravenous, | | AM PDT | | | | | Administer over 30 Minutes, Prior | | | | | | | to Incision, Starting 12/17/15 | | | | | | | at 0718, For 1 dose, Give within | | | | | | | one hour prior to incision., | | | | | | | Pre-op, Indications: Surgical | | | | | | | Prophylaxis | | | | | | + +--------+ +------+------+------+ +---+---+ | | | +---+---+ + +-------+ +-------+---+---+ | dexamethasone (DECADRON) 10 | Given | 12/17/19 | 10 mg | | | | mg/mL injection Intravenous, | | 16 8:56 | | | | | PRN, Starting 12/17/15 at 0856, | | AM PDT | | | | | Anesthesia Intra-op | | | | | | + +-------+ +-------+---+---+ +---+---+ | | | +---+---+ + +-------+ +--------+---+---+ | fentaNYL injection | Given | 12/17/19 | 50 mcg | | | | Intravenous, PRN, Pain, Starting | | 16 7:43 | | | | | 12/17/15 at 0743, Anesthesia | | AM PDT | | | | | Intra-op | | | | | | + +-------+ +--------+---+---+ +---+---+ | | | +---+---+ + +---------+ +---+---+---+ | lactated ringers (LR) infusion | New Bag | 12/17/19 | | | | | at 10-100 mL/hr, Intravenous, | | 16 9:16 | | | | | CONTINUOUS, Starting 12/17/15 | | AM PDT | | | | | at 0745, TKO., Pre-op | | | | | | + +---------+ +---+---+---+ +---------+ +---+ +---+ | New Bag | 12/17/19 | | 50 mL/hr | | | | 16 7:33 | | | | | | AM PDT | | | | +---------+ +---+ +---+ +---+---+ | | | +---+---+ + +-------+ +-------+---+---+ | lidocaine (PF) 1% injection | Given | 12/17/19 | 3 mLs | | | | Infiltration, PRN, Starting Tue | | 16 7:44 | | | | | 12/17/15 at 0744, Anesthesia | | AM PDT | | | | | Intra-op | | | | | | + +-------+ +-------+---+---+ +---+---+ | | | +---+---+ + +-------+ +-------+---+---+ | lidocaine (PF) 2% injection | Given | 12/17/19 | 75 mg | | | | Intravenous, PRN, Starting Wed | | 16 8:00 | | | | | 12/17/15 at 0800, Anesthesia | | AM PDT | | | | | Intra-op | | | | | | + +-------+ +-------+---+---+ +---+---+ | | | +---+---+ + +-------+ +------+---+---+ | midazolam (VERSED) 1 mg/mL | Given | 12/17/19 | 2 mg | | | | injection Intravenous, PRN, | | 16 7:43 | | | | | Anxiety, Starting 12/17/15 at | | AM PDT | | | | | 0743, Anesthesia Intra-op | | | | | | + +-------+ +------+---+---+ +---+---+ | | | +---+---+ + +-------+ +------+---+---+ | ondansetron (ZOFRAN) injection | Given | 12/17/19 | 4 mg | | | | Intravenous, PRN, Nausea, | | 16 8:56 | | | | | Vomiting, Starting Tue12/17/15 at | | AM PDT | | | | | 0856, Anesthesia Intra-op | | | | | | + +-------+ +------+---+---+ +---+---+ | | | +---+---+ + +-------+ +--------+---+---+ | propofol (DIPRIVAN) injection | Given | 12/17/19 | 120 mg | | | | Intravenous, PRN, Starting Tue | | 16 8:00 | | | | | 12/17/15 at 0800, Anesthesia | | AM PDT | | | | | Intra-op | | | | | | + +-------+ +--------+---+---+ +---+---+ | | | +---+---+ + +-------+ +-------+---+---+ | ropivacaine (NAROPIN) 5 mg/mL | Given | 12/17/19 | 5 mLs | | | | (0.5%) injection PERINEURAL, | | 16 7:49 | | | | | PRN, Starting 12/17/15 at 0747, | | AM PDT | | | | | Anesthesia Intra-op | | | | | | + +-------+ +-------+---+---+ +-------+ +-------+---+---+ | Given | 12/17/19 | 5 mLs | | | | | 16 7:48 | | | | | | AM PDT | | | | +-------+ +-------+---+---+ | Given | 12/17/19 | 5 mLs | | | | | 16 7:47 | | | | | | AM PDT | | | | +-------+ +-------+---+---+ +---+---+ | | | +---+---+ documented in this encounter"
--- OUTSIDE RECORDS SUMMARY | ~2020-03-11 | XMS | Encounter Summary ---
Demographics + + + | Address | [address] | | | [place] [address] | + + + | Home Phone | | + + + | Preferred Language | Unknown | + + + | Marital Status | Single | + + + | Mandaen Affiliation | 1041 | + + + | Race | Unknown | + + + | Ethnic Group | Unknown | + + + Author + + + | Author | [facility] | | | and [place] | + + + | Organization | [facility] | | | and [place] | + + + | Address | Unknown | + + + | Phone | Unavailable | + + + Support + + + + + | Name | Relationship | Address | Phone | + + + + + | Vidal Aceves/Cristiana White | ECON | [address] | | | [place] | | [place] [address] | | + + + + + | Juan Carlos Mejia | ECON | Unknown | | + + + + + Care Team Providers + +------+ + | Care Cad Engineer Name | Role | Phone | + +------+ + | No, Physician | PCP | Unavailable | + +------+ + Encounter Details +--------+ + + + + | Date | Type | Department | Care Team | Description | +--------+ + + + + | 10/18/ | Emergency | [facility] | Juan Jose Villalobos, | Shoulder | | 2016 | | [facility] | [address] | dislocation, right, | | | | EMERGENCY CENTER | [place] [address] | initial encounter | | | | [address] | [phone] | | | | | [place], [place] | | | | | | [address] | | | | | | [phone] | | | +--------+ + + + [...] + + + | Blood Pressure | 140/78 | 10/18/2015 4:47 PM | | | | | PST | | + + + + + | Pulse | 68 | 10/18/2015 4:47 PM | | | | | PST | | + + + + + | Temperature | 36.6 C (97.9 F) | 10/18/2015 4:47 PM | | | | | PST | | + + + + + | Respiratory Rate | 16 | 10/18/2015 4:47 PM | | | | | PST | | + + + + + | Oxygen Saturation | - | - | | + + + + + | Inhaled Oxygen | - | - | | | Concentration | | | | + + + + + | Weight | 74.8 kg (165 lb) | 10/18/2015 4:47 PM | | | | | PST | | + + + + + | Height | - | - | | + + + + + | Body Mass Index | 23.01 | 09/24/2015 2:05 PM | | | | | PST | | + + + + + documented in this encounter Medications at Time of Discharge + + + +---------+ + + | Medication | Sig | Dispensed | Refills | Start | End Date | | | | | | Date | | + + + +---------+ + + | | Take 1-2 tablets by | 75 | 0 | 08/27/20 | | | HYDROcodone-acetamin | mouth EVERY 6 TO 8 | tablet | | 15 | 6 | | ophen (NORCO) 10-325 | HOURS NEEDED. | | | | | | mg per tablet | | | | | | + + + +---------+ + + | | Take 1-2 tablets by | 75 | 0 | 10/02/19 | | | HYDROcodone-acetamin | mouth every 6 hours | tablet | | 16 | 6 | | ophen (NORCO) | as needed for Pain. | | | | | | 7.5-325 mg per | | | | | | | tablet | | | | | | + + + +---------+ + + | ibuprofen (ADVIL, | Take 400 mg by mouth | | 0 | | | | MOTRIN) 200 mg | every 6 hours as | | | | 6 | | tablet | needed for Pain. | | | | | + + + +---------+ + + documented as of this encounter ED Notes Conversion Transaction, Provider Unknown - 10/18/2015 4:16 PM PSTFormatting of this note m ight be different from the original. ED Notes by Diamond Marcial RN at 10/18/151615 Author: Diamond Marcial RN Service: (none) Author Type: Registered Nurse Filed: 10/18/151615 Date of Service: 10/18/151615 Status: Signed Packing Room Supervisor: Diamond Marcial RN (Registered Nurse) X ray at bedside Diamond Marcial RN 10/18/151615 Electronically signed by [facility], Provider at 05/03/2019 1:53 PM Juan Jose Pineda MD - 10/18/2015 2:47 PM PSTFormatting of this note might be different from the o riginal. ED Provider Notes by Juan Jose Villalobos MD at 10/18/15 0034 Author: Juan Jose Villalobos MD Service: (none) Author Type: Physician Filed: 10/19/15 7947 Date of Service: 10/18/151446 Status: Signed Packing Room Supervisor: Juan Jose Villalobos MD (Physician) Procedure Orders: 1. Orthopedic injury treatment [[id number]] ordered by Juan Jose Villalobos MD at 10/18/15 9990 2. Procedural sedation [[id number]] ordered by Juan Jose Villalobos MD at 10/18/15 1459 [facility] Department of Emergency Medicine 2:47 PM History of Present Illness Patient Identification Km Hoff is a 19 y.o. male. Patient information was obtained from patient. History/Exam limitations: none. Patient presented to the Emergency Department by: Car Chief Complaint Chief Complaint Patient presents with Shoulder Injury- Major This is a 19 y.o. male with chief complaint of R shoulder injury.Onset of symptoms was john ier today, with a constant course since that time. The symptoms are currently described to b e of moderate/severe severity. Pt reports he fell and dislocated his L shoulder and is in a lot of pain. The symptoms are improved by nothing and worsened by moving. Pt also complains of nothing. Pt denies hitting his head or any other sx. Care prior to arrival consisted of n othing, with no relief. Pt last ate early this morning. Pt denies any PMHx. Other significant factors in the PMH are noted and include: None. PCP: PER PT NONE History reviewed. No pertinent past medical history. History reviewed. No pertinent past surgical history. Prior to Admission medications Not on File No Known Allergies History Social History Marital Status: Single Spouse Name: N/A Number of Children: N/A Years of Education: N/A Occupational History Not on file. Social History Main Topics Smoking status: Current Every Day Smoker Smokeless tobacco: Not on file Alcohol Use: Yes Drug Use: No Sexual Activity: Not on file Other Topics Concern Not on file Social History Narrative No narrative on file No family history on file. Review of Systems Review of Systems Constitutional: Negative for fever and chills. HENT: Negative for congestion and sore throat. Respiratory: Negative for cough and shortness of breath. Cardiovascular: Negative for chest pain. Gastrointestinal: Negative for nausea, vomiting, abdominal pain and diarrhea. Musculoskeletal: Positive for falls. Positive for R shoulder injury Skin: Negative for rash. Neurological: Negative for headaches. All other systems reviewed and are negative. Physical Exam Filed Vitals: 10/18/15 1637 BP: 136/78 Pulse: 65 Temp: Resp: 16 SpO2: 99% Vitals: Normal Pulse Oximetry Interpretation: Normal General: Alert, in no acute distress, non-toxic Head: Normocephalic. Atraumatic. Eyes: Normal inspection, pupils equal and round, non-icteric, EOM full ENT: Ears and nose normal external inspection Pharynx normal Moist mucous membranes, pink appearing Neck: Normal inspection Supple No lymphadenopathy. No JVD CVS: Rate and rhythm normal No Bruits. No murmurs Respiratory: Breath sounds normal bilaterally, normal chest rise and fall, no obvious traum a Abdomen: Soft, non-distended, Bowel sounds unremarkable. CVA's non-tender. No guarding or r ebound. No masses. No hernias. Rectal deferred Back: No point tenderness. Moves without difficulty Extremities: Normal other than the RUE. Deformity of the R shoulder joint constant with ant erior dislocation. Well perfused. No calf tenderness No leg swelling Skin: Color normal. Warm and dry. No rash noted Neuro: No gross motor/sensory deficits noted. No facial asymmetry. Intact sensation on the posterior aspect of the shoulder, neuro intact. Medical Decision Making and Emergency Department Course ED Department Course 2:47 PM Pt presents to the ED complaining of R shoulder injury. On exam, pt is normal other than RUE. Deformity of the R shoulder joint constant with anterior dislocation. Intact sens ation on the posterior aspect of the shoulder, neuro intact. I feel that the list of possible emergent diagnoses that the patient requires an evaluation for includes (but is not limited to) shoulder fracture, dislocation, strain, sprain, contus ion, fall. I believe that XR, Dilaudid, and further diagnostic testing is necessary to ensur e that there is no acute emergent cause of the symptoms. 3:17 PM Rechecked. Pt is stable at this time, waiting to be taken to XR. 3:28 PM Reviewed XR results and significant for dislocation, no fracture. Will prepare for sedation and reduction. 3:30 PM Updated the pt and family on XR results and plan for sedation. Explained risks to t he family, they agree with plan of care. All questions and concerns addressed. 4:22 PM Reviewed post reduction XR. Successful reduction with anatomic alignment, no obviou s fracture. 4:26 PM I have discussed my clinical impression and treatment plan with the pt. We have spe cifically discussed the signs and symptoms that would constitute the need for an immediate r eturn to the ED, the importance of continued outpatient f/u with orthopedics and the importa nce of compliance with the d/c instructions. I have answered any questions that the pt has t o the best of my ability. Based upon the pt s history, physical exam, ED course, and diagnostic studies, I feel lita t there is no current emergent medical condition that warrants admission, transfer, or furth er ED treatment at this time. Medications sodium chloride 0.9 % flush 10 mL (not administered) ondansetron (ZOFRAN) 4 MG/2ML injection (not administered) HYDROcodone-acetaminophen (NORCO) 5-325 MG per tablet 2 tablet (not administered) sodium chloride (bolus) 0.9 % 1,000 mL (0 mLs Intravenous Stopped 10/18/15 1637) HYDROmorphone (DILAUDID) injection 1 mg (1 mg Intravenous Given 10/18/15 1455) ondansetron (ZOFRAN) injection 4 mg (4 mg Intravenous Given 10/18/15 1456) HYDROmorphone (DILAUDID) injection 1 mg (1 mg Intravenous Given 10/18/15 1516) propofol (DIPRIVAN) injection 150 mg (80 mg Intravenous Given 10/18/15 1556) Filed Vitals: 10/18/15 1554 10/18/15 1555 10/18/15 1557 10/18/15 1637 BP: 163/92 154/85 159/92 136/78 Pulse: 51 57 59 65 Temp: TempSrc: Resp: 19 17 16 16 Weight: SpO2: 100% 99% 99% 99% Records Reviewed Old medical records. Nursing notes. [place] [facility] [place] [facility] for review. Laboratory Evaluation Results None Radiology and EKG Evaluation Imaging Results X-ray shoulder right complete 2+v (Final result) Result time: 10/18/15 16:23:01 Final result by Rad Results In Dominic (10/18/15 16:23:01) Impression: 1. Church of anatomic alignment. Narrative: HISTORY:19 years old Male. Post reduction TECHNIQUE: 1. 2 views of the right shoulder obtained 18 October 2015 Prior study for review : Prereduction studies from earlier today FINDINGS: Anatomic alignment restored. No evident fracture. Note that the humerus is in internal rota tion, sensitivity for Hill-Sachs impaction is moderate, not high No dense foreign body XR Shoulder Right AP Internal AP External Axillary (Final result) Result time: 10/18/15 1 5:35:13 Final result by Rad Results In Dominic (10/18/15 15:35:13) Impression: 1. Anterior-inferior dislocation of the right glenohumeral joint. There is no proven fractu re, but would correlate with post reduction studies to include an axillary Y view Narrative: HISTORY:19 years old Male. Pain TECHNIQUE: 1. 2 view examination of the right shoulder obtained 18 October 2015 Prior study for review : None FINDINGS: There is anterior inferior dislocation of the right glenohumeral joint. No proven fracture, with seen of the rib margin and AC joint-normal ED Diagnosis Final diagnosis Shoulder dislocation, right, initial encounter Disposition: ED Disposition Discharge Condition at discharge: Stable Follow-up Information Follow up With Details Comments Contact [facility] Emergency Department If symptoms worsen [address] [facility] [id number] K Derik Braxton MD Call in 1 week [address] [facility] [phone] Discharge Medications: New Prescriptions HYDROCODONE-ACETAMINOPHEN (NORCO) 5-325 MG PER TABLET Take 1-2 tablets by mouth every 6 (six) hours as needed for Pain. Do not exceed 8 in a 24 hour period. Do not take Tylenol, as this medication has Tylenol in it. Juan Jose Villalobos MD Procedures Additional Documentation Procedural sedation Performed by: JUAN JOSE VILLALOBOS Authorized by: JUAN JOSE VILLALOBOS Sedation Type: Moderate ASA Classification: ASA 1: Normal healthy patient Mallampati Classification: II - soft palate, uvula, fauces visible Preparation: Consent signed: yes Oximetry: used Capnometry: used IV access: present Suction: available wealth management consultant: used Sedation agents: Propofol Procedure necessitating sedation performed by: Provider performing sedation (Asissted by Jacques Joseph) Total sedation time (from initiation to recovery): 0-30 minutes Orthopedic Injury Date/Time: 10/18/2015 3:50 PM Performed by: JUAN JOSE VILLALOBOS Authorized by: JUAN JOSE VILLALOBOS Consent: Verbal consent obtained. Risks and benefits: risks, benefits and alternatives were discussed Consent given by: patient and parent Patient understanding: patient states understanding of the procedure being performed Patient consent: the patient's understanding of the procedure matches consent given Procedure consent: procedure consent matches procedure scheduled Patient identity confirmed: verbally with patient Injury location: shoulder Location details: right shoulder Injury type: dislocation Dislocation type: anterior Hill-Sachs deformity: no Chronicity: new Pre-procedure neurovascular assessment: neurovascularly intact Pre-procedure distal perfusion: normal Pre-procedure neurological function: normal Pre-procedure range of motion: reduced Local anesthesia used: no Patient sedated: yes Sedation type: moderate (conscious) sedation Sedatives: propofol Analgesia: Dilaudid (x2) Sedation start date/time: 10/18/2015 3:51 PM Sedation end date/time: 10/18/2015 3:56 PM Manipulation performed: yes Reduction method: traction and counter traction Reduction successful: yes X-ray confirmed reduction: yes Immobilization: sling Post-procedure neurovascular assessment: post-procedure neurovascularly intact Post-procedure distal perfusion: normal Post-procedure neurological function: normal Post-procedure range of motion: normal Post-procedure range of motion comment: pt in sling Patient tolerance: Patient tolerated the procedure well with no immediate complications Attending Note: Documentation assistance provided by Kisha Canada (Scribe). Information recorded by the scribe has been reviewed and validated by me. Michel banuelos with its contents. MD Juan Jose Fuller MD 10/19/15 1357 documented in this e ncounter Plan of Treatment Not on filedocumented as of this encounter Procedures + +--------+ + + + | Procedure Name | Priori | Date/Time | Associated Diagnosis | Comments | | | ty | | | | + +--------+ + + + | XR SHOULDER RIGHT 2 | Routin | 10/18/2015 | | Results for this | | + VW | e | 4:18 PM | | procedure are in the | | | | PST | | results section. | + +--------+ + + + | XR SHOULDER RIGHT 2 | Routin | 10/18/2015 | | Results for this | | + VW | e | 3:29 PM | | procedure are in the | | | | PST | | results section. | + +--------+ + + + documented in this encounter Results XR Shoulder Right 2 + Vw (10/18/2015 4:18 PM PST) + + | Specimen | + + | | + + + + + | Impressions | Performed At | + + + | 1. Church of anatomic alignment. Electronically | | | signed by Philip Ventura MD on 10/18/2015 4:23 PM | | + + + + + + | Narrative | Performed At | + + + | HISTORY:19 years old Male. Post reduction TECHNIQUE: 1. 2 | | | views of the right shoulder obtained 18 October 2015 Prior study for | | | review : Prereduction studies from earlier today FINDINGS: | | | Anatomic alignment restored. No evident fracture. Note that the | | | humerus is in internal rotation, sensitivity for Hill-Sachs impaction | | | is moderate, not high No dense foreign body | | + + + + + | Procedure Note | + + | Dominic, Rad Conversion - 04/26/2019 5:14 PM PDT HISTORY:19 years old Male. Post | | reduction TECHNIQUE: 1. 2 views of the right shoulder obtained 18 October 2015Prior | | study for review : Prereduction studies from earlier today FINDINGS: Anatomic alignment | | restored. No evident fracture. Note that the humerus is in internal rotation, | | sensitivity for Hill-Sachs impaction is moderate, not high No dense foreign body | | IMPRESSION: 1. Church of anatomic alignment. | |FINDINGS: | | | |Anatomic alignment restored. No evident fracture. Note that the humerus is in internal rota tion, sensitivity for Hill-Sachs impaction is moderate, not high | | | |No dense foreign body | | | |IMPRESSION: | | | |1. Church of anatomic alignment. | | | | | | | | | + + XR Shoulder Right 2 + Vw (10/18/2015 3:29 PM PST) + + | Specimen | + + | | + + + + + | Impressions | Performed At | + + + | 1. Anterior-inferior dislocation of the right glenohumeral joint. | | | There is no proven fracture, but would correlate with post reduction | | | studies to include an axillary Y view | | + + + + + + | Narrative | Performed At | + + + | HISTORY:19 years old Male. Pain TECHNIQUE: 1. 2 view | | | examination of the right shoulder obtained 18 October 2015 Prior | | | study for review : None FINDINGS: There is anterior inferior | | | dislocation of the right glenohumeral joint. No proven fracture, | | | with seen of the rib margin and AC joint-normal | | + + + + + | Procedure Note | + + | DominicDewayne Shona - 04/26/2019 5:14 PM PDT HISTORY:19 years old Male. Pain | | TECHNIQUE: 1. 2 view examination of the right shoulder obtained 18 October 2015Prior | | study for review : None FINDINGS: There is anterior inferior dislocation of the right | | glenohumeral joint. No proven fracture, with seen of the rib margin and AC joint-normal | | IMPRESSION: 1. Anterior-inferior dislocation of the right glenohumeral joint. There | | is no proven fracture, but would correlate with post reduction studies to include an | | axillary Y view | |FINDINGS: | | | |There is anterior inferior dislocation of the right glenohumeral joint. | | | |No proven fracture, with seen of the rib margin and AC joint-normal | | | | | | | |IMPRESSION: | | | |1. Anterior-inferior dislocation of the right glenohumeral joint. There is no proven fractu re, but would correlate with post reduction studies to include an axillary Y view | | | | | | | | | + + documented in this encounter Visit Diagnoses + + | Diagnosis | + + | Shoulder dislocation, right, initial encounter | + + documented in this encounter"
--- OUTSIDE RECORDS SUMMARY | ~2020-03-11 | XMS | Encounter Summary ---
Demographics + + + | Address | [address] | | | [place] [address] | + + + | Home Phone | | + + + | Preferred Language | Unknown | + + + | Marital Status | Single | + + + | Voodoo Affiliation | 1041 | + + + | Race | Unknown | + + + | Ethnic Group | Unknown | + + + Author + + + | Author | [facility] | | | and [place] | + + + | Organization | [facility] | | | and [place] | + + + | Address | Unknown | + + + | Phone | Unavailable | + + + Support + + + + + | Name | Relationship | Address | Phone | + + + + + | Vidal Aceves/Cristiana White | ECON | [address] | | | [place] | | [place] [address] | | + + + + + | Juan Carlos Mejia | ECON | Unknown | | + + + + + Care Team Providers + +------+ + | Care Field Nurse Case Manager Name | Role | Phone | [...] | | Sprain of | | Khari Linder MD | | | | | anterior | | [address] | | | | | cruciate | | [place], | | | | | ligament of | | [place] [address] | | | | | knee, left, | | Phone: | | | | | initial | | [phone] | | | | | encounter | | Fax: | | | | | Sprain of | | [phone] | | | | | anterior | [...] | | | | | | | PA KNEE | | | | | | | SCOPE,AID | | | | | | | ANT CRUCIATE | | | | | | | REPAIR | | | +--------+--------+ + + + + Encounter Details +--------+---------+ + + + | Date | Type | Department | Care Team | Description | +--------+---------+ + + + | 07/11/ | Surgery | [facility] | Khari Carl, | Left Knee A.C.L. | | 2015 | | MED CTR OR INTRA OP | MD [address] [facility] | Reconstruction w/ | | | | [address] | [place], [place] | Autograft and | | | | [place], [place] | [address] | arthroscopy | | | | [address] | | | | | | [phone] | | | +--------+---------+ + + + [...] + + + | Blood Pressure | 139/75 | 07/11/2015 9:00 AM | | | | | PDT | | + + + + + | Pulse | 60 | 07/11/2015 9:00 AM | | | | | PDT | | + + + + + | Temperature | 36.6 C (97.9 F) | 07/11/2015 9:00 AM | | | | | PDT | | + + + + + | Respiratory Rate | 18 | 07/11/2015 9:00 AM | | | | | PDT | | + + + + + | Oxygen Saturation | 98% | 07/11/2015 9:00 AM | | | [...] as you get more comfortable moving the kne e Keep dressings on and dry this weekend [...] Miscellaneous Notes Plan of Care - Jimmy Coronado PT - 07/11/2015 4:49 PM PDTProblem: General Plan of Care ( Adult, Obstetrics) Goal: Care Plan Shift Summary & Review . [facility] CTR OR INTRA OP [address] [place] [address] Physical Therapy Note Date: 07/08/2015 Patient Information Patient Name: Km Hoff Date of : 1995 Age: 19 y.o. No diagnosis found. Date of Onset: Referring Provider: No ref. provider found Start Time: Stop time: Duration: minutes Pain Assessment 11/19 left knee SUBJECTIVE: Km Hoff is a 19 y.o. male who recently underwent outpatient surgery f or ACL reconstruction. At this time (1630) he is refusing crutch training and states, [...] Khari Carl MD - 07/11/2015 2:43 PM PDT [address] [address] OPERATIVE REPORT KHARI CARL MD Patient: KM HOFF Admitting: KHARI CARL MR #: [id number] LOC: PT TYPE: Adm Date: 07/11/2015 : [...] wall plasty was carried out. Using the [id number] positioning guide for medi al portal and [...] 07/11/2015 14:43:10 Transcribed on 07/12/2015 11:09:04 by hailey job# [id number] Confirmation #: [id number] signed by Khari Carl MD at 07/12/2015 12:04 PM P DTBrief Op Note - Khari Carl MD - 07/11/2015 2:31 PM PDT Brief Operative Note Km Hoff 19 y.o. male 1995 [id number] Proc. Date 07/11/2015 Preop Dx Sprain of anterior cruciate ligament of knee, left, initial encounter [[id number]] Postop Dx same Procedure Left Knee A.C.L. Reconstruction w/ Autograft and arthroscopy - Left Knee A.C.L. Reconstruction w/ Autograft and arthroscopy Anesthesia General Surgeon Khari Carl MD - Primary Intelligence Intern EBL less than 50 mL Findings 100 percent rupture midsubstance ACL - no other pathology Complications none Specimens * No specimens in log * Drains Electronically signed by: Khari Carl MD [facility]11/2015 14:31 [facility] [...] + | Diagnosis | + + | Sprain of anterior cruciate ligament of knee, left, initial encounter | + + documented [...] +---+---+ | | | +---+---+ + +-------+ +--------+---+ + | ropivacaine (NAROPIN) 5 mg/mL | Given | 07/11/20 | 22 mLs | | Surgical | | (0.5%) injection PRN, Starting | | 15 2:27 | | | Site | | 07/11/15 at 1427, Intra-op | | PM PDT | | | | + +-------+ +--------+---+ + +---+---+ | | | +---+---+ documented in this encounter
--- OUTSIDE RECORDS SUMMARY | ~2020-03-11 | XMS | Encounter Summary ---
Demographics + + + | Address | [address] | | | [place] [address] | + + + | Home Phone | | + + + | Preferred Language | Unknown | + + + | Marital Status | Single | + + + | Jainism Affiliation | 1041 | + + + | Race | Unknown | + + + | Ethnic Group | Unknown | + + + Author + + + | Author | [facility] | | | and [place] | + + + | Organization | [facility] | | | and [place] | + + + | Address | Unknown | + + + | Phone | Unavailable | + + + Support + + + + + | Name | Relationship | Address | Phone | + + + + + | Vidal Aceves/Cristiana White | ECON | [address] | | | [place] | | [place] [address] | | + + + + + | Juan Carlos Mejia | ECON | Unknown | | + + + + + Care Team Providers + +------+ + | Care Rn Rehab Name | Role | Phone | + +------+ + | No, Physician | PCP | Unavailable | + +------+ + Reason for Visit + + + | Reason | Comments | + + + | Therapy Daily | | | Treatment | | + + + Evaluate & [...] of right | [address] | [address] | | | | | humerus, | [address] | [place], | | | | | subsequent | [place] | [place] [address] | | | | | encounter | [address] | Phone: | | | | | Other | Phone: | [phone] | | | | | instability, | [phone] | Fax: | | | | | right | Fax: | [phone] | | | | | shoulder | [phone] | | | | | | S43.014D [...] Description | +--------+---------+ + + + | 04/12/ | Office | [facility] | Sheldon Montgomery, | Anterior dislocation | | 2017 | Visit | [facility] | [address] | of right humerus, | | | | OP [address] | [address] | subsequent | | | | [place] | [place], [place] [address] | encounter; | | | | [address] | [phone] | Instability of right | | | | [phone] | | shoulder joint | | | | | Pascual Logan, PT | | | | | | [address] | | | | | | [place] [address] | | | | | | [phone] | | | | | | | [...] this encounter Progress Notes Pascual Logan - 04/12/2017 8:15 AM PDT [facility] CTR THERAPY PT OP [address] [place] [address] Physical Therapy Daily Treatment Note Date: 04/12/2017 Patient Information Patient Name: Km Hoff Date of : 1995 Age: 21 y.o. Encounter Diagnoses Code Name Primary? S43.014D Anterior dislocation of right humerus, subsequent encounter M25.311 Instability of right shoulder joint Date of Onset: 02/16/2017 Referring Provider: Sheldon Montgomery MD # of PT Visits to Date: 3 Start Time: 814 Stop time: 899 Duration: 45 minutes Timed Treatment Codes: 45 minutes Rehab Precautions Flowsheet Row Office Visit from 03/24/2017 in [facility] CTR THERAPY PT OP Rehab Precautions Precautions Comments labral repair protocol Pain Assessment: Pain Scale Used: NUMERIC Pain Rating Pre Assessment: 1 Subjective: Patient reports good progress towards goals listed below. States he has been do ing his core stability exercises and working on endurance at home. Goals: Patient Specific Functional Scale Goal 1: Demonstrate functional shoulder ROM to complete A DL s including reaching for bathing, dressing & grooming activities of shampooing or dryin g hair. Patient Specific Functional Scale Goal 1 Status: 2 Patient Specific Functional Scale Goal 2: Patient will demonstrate shoulder strength to lif t and carry 50 lbs. Patient Specific Functional Scale Goal 2 Status: 1 Patient Specific Functional Scale Goal 3: Reduce DASH disability score by 10% points or gre ater indicating improved function with ADLs Patient Specific Functional Scale Goal 3 Status: 0 Objective: Therapeutic exercises: AAROM with sudha for flexion, scaption, and abduction 1x20 AAROM supine with cane shoulder ER to 15deg Supine shoulder protraction/ punch 2x12 Supine shoulder protraction with perturbations [id number] Prone lumbar extension/ supermans with shoulder "i's" 2x12 Supine hooklying crunch 1x10 Standing shoulder isometrics ER , IR , flexion, extension at 0deg 1x10 with 5sec hold Wrist flexion, extension, ulnar and radial deviation, supination, pronation 8lb 1x8 Assessment: Patient presents s/p surgery on 02/16/17. He presents with improved scapular control during o verhead AROM, but continues to demonstrate scapular winging and dyskinesia on downward rotat ion. Noticeable improvement in seated postural awareness and endurance. Plan: Continue AAROM and progress to AROM in all cardinal planes. Progress ER to 20deg. Standing pushup plus at wall with towel for isometric ER . Incorporate prone exercises for scapular s tability. Electronically signed by: Pascual Logan, 04/12/2017 9:11 Patient Name: Km Hoff/: 1995/ documented in this encounte r Plan of Treatment Not on filedocumented as of this encounter Visit Diagnoses + + | Diagnosis | + + | Anterior dislocation of right humerus, subsequent encounter | + + | Instability of right shoulder joint Other joint derangement, not elsewhere | | classified, shoulder region | + + documented in this encounter
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
--- OUTSIDE RECORDS SUMMARY | ~2020-03-11 | XMS | Encounter Summary ---
Demographics + + + | Address | [address] | | | [place] [address] | + + + | Home Phone | | + + + | Preferred Language | Unknown | + + + | Marital Status | Single | + + + | Yarsanism Affiliation | 1041 | + + + | Race | Unknown | + + + | Ethnic Group | Unknown | + + + Author + + + | Author | [facility] | | | and [place] | + + + | Organization | [facility] | | | and [place] | + + + | Address | Unknown | + + + | Phone | Unavailable | + + + Support + + + + + | Name | Relationship | Address | Phone | + + + + + | Vidal Aceves/Cristiana White | ECON | [address] | | | [place] | | [place] [address] | | + + + + + | Juan Carlos Mejia | ECON | Unknown | | + + + + + Care Team Providers + +------+ + | Care Friction Paint Machine Tender Name | Role | Phone | [...] of right | [address] | [address] | | | | | humerus, | [address] | [place], | | | | | subsequent | [place] | [place] [address] | | | | | encounter | [address] | Phone: | | | | | Other | Phone: | [phone] | | | | | instability, | [phone] | Fax: | | | | | right | Fax: | [phone] | | | | | shoulder | [phone] | | | | | | S43.014D [...] Description | +--------+---------+ + + + | 04/05/ | Office | [facility] | Sheldon Montgomery, | Anterior dislocation | | 2017 | Visit | [facility] | [address] | of right humerus, | | | | OP [address] | [address] | subsequent | | | | [place] | [place], [place] [address] | encounter; | | | | [address] | [phone] | Instability of right | | | | [phone] | | shoulder joint | | | | | Pascual Logan, PT | | | | | | [address] | | | | | | [place] [address] | | | | | | [phone] | | | | | | | [...] this encounter Progress Notes Pascual Logan - 04/05/2017 8:15 AM PDT [facility] THER[facility] PT OP [address] [place] [address] Physical Therapy Daily Treatment Note Date: 04/05/2017 Patient Information Patient Name: Km Hoff Date of : 1995 Age: 21 y.o. Encounter Diagnoses Code Name Primary? S43.014D Anterior dislocation of right humerus, subsequent encounter M25.311 Instability of right shoulder joint Date of Onset: 02/16/2017 Referring Provider: Sheldon Montgomery MD # of PT Visits to Date: 2 Start Time: 829 Stop time: 899 Duration: 30 minutes Timed Treatment Codes: 30 minutes Rehab Precautions Flowsheet Row Office Visit from 03/24/2017 in [facility] THER[facility] PT OP Rehab Precautions Precautions Comments labral repair protocol Pain Assessment: Pain Scale Used: NUMERIC Pain Rating Pre Assessment: 1 Subjective: Patient reports minimal progress towards goals listed below. States he is inter ested in core stability exercises and working on endurance. Goals: Patient Specific Functional Scale Goal 1: Demonstrate functional shoulder ROM to complete A DL s including reaching for bathing, dressing & grooming activities of shampooing or dryin g hair. Patient Specific Functional Scale Goal 1 Status: 1 Patient Specific Functional Scale Goal 2: Patient [...] with sudha for flexion, scaption, and abduction Glute bridge 1x10 Prone lumbar extension/ supermans 1x10 Supine hooklying crunch 1x10 Standing shoulder isometrics ER , IR , flexion, extension at 0deg 1x10 with 5sec hold Wrist flexion, extension, ulnar and radial deviation, supination, pronation 5lb 1x8 Assessment: Patient presents s/p surgery week seven. He was instructed on core stability exercises that avoid weight bearing through the shoulders. He was encouraged to avoid jogging at this time but instead to do stationary bicycling to avoid repetitive stress on the shoulder joint. Plan: Continue AAROM and progress to AROM in all cardinal planes. Progress ER to 10deg. Begin pro prioceptive exercises at 90deg flexion in prone. Electronically signed by: Pascual Logan, 04/05/2017 9:50 Patient Name: Km Hoff/: 1995/ documented in [...]
--- OUTSIDE RECORDS SUMMARY | ~2020-03-11 | XMS | Encounter Summary ---
Demographics + + + | Address | [address] | | | [place] [address] | + + + | Home Phone | | + + + | Preferred Language | Unknown | + + + | Marital Status | Single | + + + | Spiritism Affiliation | 1041 | + + + | Race | Unknown | + + + | Ethnic Group | Unknown | + + + Author + + + | Author | [facility] | | | and [place] | + + + | Organization | [facility] | | | and [place] | + + + | Address | Unknown | + + + | Phone | Unavailable | + + + Support + + + + + | Name | Relationship | Address | Phone | + + + + + | Vidal Aceves/Cristiana White | ECON | [address] | | | [place] | | [place] [address] | | + + + + + | Juan Carlos Mejia | ECON | Unknown | | + + + + + Care Team Providers + +------+ + | Care Master Motorcycle Technician Name | Role | Phone | + +------+ + PCP | Unavailable | + +------+ + Encounter Details +--------+ + + + + | Date | Type | Department | Care Team | Description | +--------+ + + + + | 01/24/ | Hospital | [facility] | Steven Guaman, | | | 2012 | Encounter | [facility] EM[facility]Y | MD [address] | | | | | CENTER [address] | [facility] [place] | | | | | [place], [place] | [place] [address] | | | | | [address] | [phone] | | | | | [phone] | | | +--------+ + + + [...] documented as of this encounter ED Notes Steven Guaman MD - 01/24/2013 7:07 [place] [address] Patient Name: KM MARR Provider: Unit #: [id number] Location: ER : 1995 DATE: 01/24/2013 IDENTIFICATION: An 17-year-old male. CHIEF COMPLAINT: Head injury and scalp laceration. HISTORY OF PRESENT ILLNESS: This patient presented to the emergency department for evaluat ion. He was pounding a T post with a T post pounder when he inadvertently clobbered the top of his head with it, sustaining a laceration. He thinks he was possibly knocked out briefl y. He was definitely dazed. He has been nauseated, and has a headache at that location and has been dizzy. This prompted his mom to be concerned and bring him to the emergency depart ment for evaluation. Bleeding was controlled with direct pressure. PAST MEDICAL HISTORY: He has had elbow surgery, no chronic illnesses. MEDICATIONS None. ALLERGIES: NONE. SOCIAL HISTORY: Mom is providing the history. Nonsmoker. PRIMARY CARE PROVIDER: Dr. Paul. REVIEW OF SYSTEMS HEAD: He has a headache. PHYSICAL EXAMINATION VITAL SIGNS: . Pulse 69, respirations 18, temperature 99.4, saturation 99% on room air. GENERAL: This is a well-nourished 17-year-old male. HEENT: He has a fairly straight 2 cm laceration, high right occipital area, with some asso ciated soft tissue swelling and tenderness. It is a fairly small laceration. There is no si gnificant gap in the wound. His nose and throat are clear. Tympanic membranes clear. No jesus rrhea, no rhinorrhea, no Garcia sign or raccoon's eyes. No septal hematoma. No hemotympanum . NECK: Supple, nontender. HEART: Regular rate and rhythm. LUNGS: Clear to auscultation. CHEST: Nontender. ABDOMEN: Soft, nontender. EXTREMITIES: Warm and well perfused without edema. Good range of motion. No joint swelling or deformity. SKIN: No rash. NEUROLOGIC: He is alert, interactive. Good muscle tone and strength. His speech is clear a t this time. EMERGENCY DEPARTMENT COURSE: The patient was seen and examined shortly after arriving in [facility] emergency department. History and physical obtained. Vital signs were noted. I repaired his scalp laceration. A noncontrast head CT was obtained. Noncontrast head CT s hows no obvious pathology. The scalp laceration was repaired with 3 beth. [facility]. He is going to be able to be discharged in the care of his mom. PROCEDURE NOTE: Procedure is scalp laceration repair. Prior consent was verbal from the nina ceja after PARQ conference. DETAILS: The patient's scalp area was prepped and draped. Local anesthetic was infiltrated . Buffered lidocaine was used, a total of about 2 mL, achieving good anesthesia. The wound was irrigated, no debris was demonstrated. The wound edges are approximated with 3 stainles s steel beth with good results. Hemostasis reachieved with direct pressure. Estimated bl ood loss 5 mL. No apparent complications noted. The patient tolerated the procedure well. IMPRESSION 1. SCALP LACERATION, 2 CM, REPAIRED. 2. CLOSED HEAD INJURY WITH CONCUSSION SYMPTOMS. PLAN: The patient will be discharged home in improved condition. Tylenol, ibuprofen, ice p acks, Polysporin to the wound 3 times a day. [place] out in 7 days. Followup with his prima care provider. No sports or contact activities until cleared by his doctor. DICTATED BY: Steven Guaman MD Emergency Medicine JOB #: [id number] EXT JOB #:[id number] <<Signature on File>> Steven Guaman MD 2226 < documented in this encounter Plan of Treatment Not on filedocumented as of this encounter Procedures + +--------+ + + + | Procedure Name | Priori | Date/Time | Associated Diagnosis | Comments | | | ty | | | | + +--------+ + + + | CT HEAD WO CONTRAST | Routin | 01/25/2013 | | Results for this | | | e | 7:50 AM | | procedure are in the | | | | PDT | | results section. | + +--------+ + + + documented in this encounter Results CT Head wo Contrast (01/25/2013 7:50 AM PDT) + + | Specimen | + + | | + + + + + | Narrative | Performed At | + + + | [facility] | [place] | | Department [address] [facility], [place] | [facility] | | [ rep [address]] [ rep [facility] | | st zip] Signed | - IMAGING | | | | | Patient Name: KM MARR Physician: | | | BROW. : 1995 Age: 17 Sex: M Unit #: [id number] | | | Exam Date: 01/24/13 Location: ER | | | Report #: [id number] Page: | | | %(RAD)RES..mtdd.print.filter("pg") of %(RAD) | | | RES..mtdd.print.filter("tpg") | | | | | | Accession Number: [id number] | | | CT HEAD WITHOUT IV CONTRAST CLINICAL HISTORY: Head | | | injury with headache and nausea. TECHNIQUE: Axial images | | | were obtained from vertex to skull base. Coronal and sagittal | | | reformatted images were created. FINDINGS: A | | | scalp hematoma is seen in the high right parietal region, with | | | laceration and skin beth in place. There is no evidence of | | | fracture of the underlying calvarium. The brain shows normal | | | morphology and lynn-white differentiation, without intracranial | | | hemorrhage, mass effect, extra-axial fluid collection, or acute | | | large vessel infarct. The ventricles are within normal limits for | | | size. The basal cisterns are patent. The skull and visible facial | | | bones are intact. The visualized paranasal sinuses, mastoid air | | | cells, and middle ear cavities are normally aerated. The orbital | | | contents are normal. IMPRESSION: NO ACUTE | | | TRAUMATIC INTRACRANIAL ABNORMALITY. RIGHT PARIETAL SCALP HEMATOMA | | | AND LACERATION. Dictated Date/Time: | | | 01/25/2013 07:50 Transcribed Date/Time: 01/25/2013 08:05 | | | Factory Assembler: <<Signature on File>> | | | | | | Dain Lerma MD01/25/13 2154 <Electronically signed by Dain | | | Niyah Lerma MD> Dain Lerma MD 01/25/13 0750 | | | Factory Assembler: Sandro [id number]/16/13 0805 | | | | | + + + + + + + + | Performing | Address | City/State/Zipcode | Phone Number | | Organization | | | | + + + + + | [facility] | [address] | [place] | [phone] | | [facility] | | [address] | | | - IMAGING | | | | + + + + + documented in this encounter Visit Diagnoses Not on filedocumented in this encounter
--- OUTSIDE RECORDS SUMMARY | ~2020-03-11 | XMS | Encounter Summary ---
Demographics + + + | Address | [address] | | | [place] [address] | + + + | Home Phone [...] + + + | Author | [facility] | | | and [place] | + + + | Organization | [facility] | | | and [place] | + + + | Address | Unknown | + + + | Phone | Unavailable | + + + Support + + + + + | Name | Relationship | Address | Phone | + + + + + | Vidal Aceves/Cristiana White | ECON | [address] | | | [place] | | [place] [address] | | + + + + + | Juan Carlos Mejia | ECON | Unknown | | + + + + + Care Team Providers + +------+ + | Care Sole Stainer Name | Role | Phone | + +------+ + | No, Physician | PCP | Unavailable | + +------+ + Reason for Visit + +--------+ + | Reason | Onset | Comments | | | Date | | + +--------+ + | Medication Refill | 07/21/ | | | | 2014 | | + +--------+ + Encounter Details +--------+--------+ + + + | Date | Type | Department | Care Team | Description | +--------+--------+ + + + | 07/21/ | Refill | [facility] | Khari Carl, | Medication Refill | | 2014 | | ORTHOPEDIC SURGERY | [address] | | | | [address] | [place] | | | | | [place] | [address] | | | | | [address] | | | | | | [phone] | | | +--------+--------+ + + + [...] Notes Telephone Encounter - Helen [place] - 07/22/2015 3:49 PM PSTPatients mother Cristiana ruby picked up rx with valid id [id number] exp [id number] signed by Helen dewitt at 07/22/2015 3:50 PM PSTTelephone Encounter - Helen [place] - 07/22/2015 11:23 AM PSTJ shantell called and stated his mother Ignacio will bean picker machine operator rx with valid id elephone Encounter - Yas Simms Cert MA - 07/21/2015 2:[address]Willard cleveland to fill the medication requested. Rx pr epared and signed by . Rx placed in the designated area for the patient bean picker machine operator. Doretha tejada contact the patient to let the patient know that the Rx is ready. The patient will nee d to provide a form of ID when picking up the prescription. Please verify the patients ID at bean picker machine operator. ikki gan Encounter - Yas Simms Cert MA - 07/21/2015 2:06 PM PST*Deferred to Dr. Silvino stinson* ejaleesa gan Encounter - Helen [place] - 07/21/2015 11:59 AM PSTPatients mother Cristiana stopped by e office to request a refill of his hydrocodone 10-325 mg She can be reached at [phone] when ready for bean picker machine operator. documented in this encounter Plan of Treatment Not on filedocumented as of this encounter Visit Diagnoses Not on filedocumented in this encounter"
--- OUTSIDE RECORDS SUMMARY | ~2020-03-11 | XMS | Encounter Summary ---
Demographics + + + | Address | [address] | | | [place] [address] | + + + | Home Phone | | + + + | Preferred Language | Unknown | + + + | Marital Status | Single | + + + | Mandaeism Affiliation | 1041 | + + + | Race | Unknown | + + + | Ethnic Group | Unknown | + + + Author + + + | Author | [facility] | | | and [place] | + + + | Organization | [facility] | | | and [place] | + + + | Address | Unknown | + + + | Phone | Unavailable | + + + Support + + + + + | Name | Relationship | Address | Phone | + + + + + | Vidal Aceves/Cristiana White | ECON | [address] | | | [place] | | [place] [address] | | + + + + + | Juan Carlos Mejia | ECON | Unknown | | + + + + + Care Team Providers + +------+ + | Care Test Equipment Mechanic Name | Role | Phone | + [...] [facility] | [address] | | | | | [address] [place] | [place] [address] | | | | | [place] [address] | [phone] | | | | | [phone] | | | +--------+ + + + [...] this encounter Progress Notes Pascual Logan - 05/09/2017 11:[facility] [address] [place] [address] Cancellation/No Show Date: 05/09/2017 Patient Information Patient Name: Km Hoff Date of : 1995 Age: 21 y.o. Reason for missed visit: No show Phone call placed: yes - attempted to call, no answer and voicebox full. Requested that [facility] office staff attempt to call patient back. Plan: Cancel all appointments due to three no shows at this time. Make patient aware of appointment options. Electronically signed by: Pascual Logan, 05/09/2017 11:34 Patient Name: Km Hoff/: 1995/ documented in this encounte r Plan of Treatment Not on filedocumented as of this encounter Visit Diagnoses + + | Diagnosis | + + | Instability of right shoulder joint Other joint derangement, not elsewhere | | classified, shoulder region | + + documented in this encounter"
--- OUTSIDE RECORDS SUMMARY | ~2020-03-11 | XMS | Encounter Summary ---
Demographics + + + | Address | [address] | | | [place] [address] | + + + | Home Phone | | + + + | Preferred Language | Unknown | + + + | Marital Status | Single | + + + | Gnosticist Affiliation | 1041 | + + + | Race | Unknown | + + + | Ethnic Group | Unknown | + + + Author + + + | Author | [facility] | | | and [place] | + + + | Organization | [facility] | | | and [place] | + + + | Address | Unknown | + + + | Phone | Unavailable | + + + Support + + + + + | Name | Relationship | Address | Phone | + + + + + | Vidal Aceves/Cristiana White | ECON | [address] | | | [place] | | [place] [address] | | + + + + + | Juan Carlos Mejia | ECON | Unknown | | + + + + + Care Team Providers + +------+ + | Care Plumber'S Assistant Name | Role | Phone | + +------+ + | No, Physician | PCP | Unavailable | + +------+ + Reason for Visit + +--------+ + | Reason | Onset | Comments | | | Date | | + +--------+ + | Medication Refill | 10/02/ | | | | 2015 | | + +--------+ + Encounter Details +--------+--------+ + + + | Date | Type | Department | Care Team | Description | +--------+--------+ + + + | 10/02/ | Refill | [facility] | Khari Carl, | Medication Refill | | 2015 | | ORTHOPEDIC SURGERY | [address] | | | | [address] | [place] | | | | | [place] | [address] | | | | | [address] | | | | | | [phone] | | | +--------+--------+ + + + [...] this encounter Miscellaneous Notes Telephone Encounter - Molly Fam - 10/02/2015 4:11 PM PSTPatients father Vidal Hoff : 01/07/1965 picked up script with ID # [id number] EXP 01/07/2016 elephone Encounter - Helen Nye - 10/02/2015 11:08 AM PSTPatient was notified his Rx is ready for black pickler with valid Id. elephone Encoun ter - Helen Atwood - 10/02/2015 10:57 AM PSTLeft message for patient to return our call.E lectronically signed by Helen Atwood at 10/02/2015 10:57 AM PSTTelephone Encounter - Yas Hill Cert MA - 10/02/2015 10:[address]Willard cleveland to fill the medicat ion requested. Rx prepared and signed by . Rx placed in the designated area for e patient black pickler. Please contact the patient to let the patient know that the Rx is ready. The patient will need to provide a form of ID when picking up the prescription. Please verif y the patients ID at black pickler. elephon e Encounter - Helen Atwood - 10/02/2015 9:29 AM PSTPatient is requesting a refill on his Hydrocodone 7.5-325 mg Patient can be reached at [phone]. Patient Stephen will black pickler rx with valid Id. documented in this encounter Plan of Treatment Not on filedocumented as of this encounter Visit Diagnoses Not on filedocumented in this encounter"
--- OUTSIDE RECORDS SUMMARY | ~2020-03-11 | XMS | Encounter Summary ---
Demographics + + + | Address | [address] | | | [place] [address] | + + + | Home Phone | | + + + | Preferred Language | Unknown | + + + | Marital Status | Single | + + + | Buddhism Affiliation | 1041 | + + + | Race | Unknown | + + + | Ethnic Group | Unknown | + + + Author + + + | Author | [facility] | | | and [place] | + + + | Organization | [facility] | | | and [place] | + + + | Address | Unknown | + + + | Phone | Unavailable | + + + Support + + + + + | Name | Relationship | Address | Phone | + + + + + | Vidal Aceves/Cristiana White | ECON | [address] | | | [place] | | [place] [address] | | + + + + + | Juan Carlos Mejia | ECON | Unknown | | + + + + + Care Team Providers + +------+ + | Care Facing Baster Name | Role | Phone | + +------+ + | No, Physician | PCP | Unavailable | + +------+ + Reason for Visit + +--------+ + | Reason | Onset | Comments | | | Date | | + +--------+ + | Medication Refill | 10/20/ | | | | 2015 | | + +--------+ + Encounter Details +--------+--------+ + + + | Date | Type | Department | Care Team | Description | +--------+--------+ + + + | 10/20/ | Refill | [facility] | Khari Carl, | Medication Refill | | 2015 | | ORTHOPEDIC SURGERY | [address] | | | | [address] | [place] | | | | | [place] | [address] | | | | | [address] | | | | | | [phone] | | | +--------+--------+ + + + [...] this encounter Miscellaneous Notes Telephone Encounter - NabeelHuseyin meyerlie Nitza - 10/21/2015 3:35 PM PSTPatients father Picked up s cript. See previous Quicknote. elephone Encounter - Nabeelbetsy Molly Goddard - 10/21/2015 3:33 PM PSTPatient picked up scri pt with ID # [id number] 01/07/2016 elephone Encounter - Krissy Kaur - 10/21/2015 10:55 AM PSTPatient notified that script ready for vegetable picker wit h ID. elephone Encounter - Krissy Benjamin - 10/21/2015 10:02 AM PSTAttempted to contact patient but voicemail is no t set up yet. elephone Encounter - Yas Simms Cert MA - 10/20/2015 5:[address]Willard cleveland to fill the medication requested. Rx prepared and signed by . Rx placed in the desig nated area for the patient vegetable picker. Please contact the patient to let the patient know that the Rx is ready. The patient will need to provide a form of ID when picking up the prescript ion. Please verify the patients ID at vegetable picker. elephon e Encounter - Krissy Benjamin - 10/20/2015 1:34 PM PSTPatient called requesting refill o f hydrocodone. Patient will be out tomorrow. Please advise and call [phone].Electronica lly signed by Krissy Benjamin at 10/20/2015 1:34 PM PSTdocumented in this encounter Plan of Treatment Not on filedocumented as of this encounter Visit Diagnoses Not on filedocumented in this encounter"
--- OUTSIDE RECORDS SUMMARY | ~2020-03-11 | XMS | Encounter Summary ---
Demographics + + + | Address | [address] | | | [place] [address] | + + + | Home Phone [...] + + + | Author | [facility] [place] [facility] | | | and [place] | + + + | Organization | [facility] [place] [facility] | | | and [place] | + + + | Address | Unknown | + + + | Phone | Unavailable | + + + Support + + + + + | Name | Relationship | Address | Phone | + + + + + | Vidal Aceves/Cristiana White | ECON | [address] | | | [place] | | [place] [address] | | + + + + + | Juan Carlos Mejia | ECON | Unknown | | + + + + + Care Team Providers + +------+ + | Care Cash Specialist Name | Role | Phone | [...] | | | | right | | [address] | | | | | shoulder, | | Phone: | | | | | initial | | [phone] | | | | | encounter | | Fax: | | | | | Dislocation | | [phone] | | | | | of right [...] | | | | | | | [place] SHLDR | | | | | | | ARTHROSCOP,S | | | | | | | URG,REPAIR,S | | | | | | | LAP LESION | | | | | | | [place] SHLDR | | | | | | | ARTHROSCOP,S | | | | | | | URG,CAPSULOR | | | | | | | RHAPHY | | | +--------+--------+ + + + + Encounter Details +--------+ + + + + | Date | Type | Department | Care Team | Description | +--------+ + + + + | 12/16/ | Hospital | [facility] | Osmel Wray | | | 2016 | Encounter | MED CTR OR [facility] OP | [address], [address] | | | | | [address] | [address] [place], [place] | | | | | [place], [place] | [address] | | | | | [address] | [phone] | | | | | [phone] | | | +--------+ + + + [...] + + + | Blood Pressure | 129/75 | 12/17/2015 10:30 AM | | | | | PDT | | + + + + + | Pulse | 76 | 12/17/2015 10:45 AM | | | | | PDT | | + + + + + | Temperature | 36.6 C (97.9 F) | 12/17/2015 9:16 AM | | | | | PDT | | + + + + + | Respiratory Rate | 18 | 12/17/2015 10:00 AM | | | | | PDT | | + + + + + | Oxygen Saturation | 97% | 12/17/2015 10:45 AM | | | | | PDT | | + + + + + | Inhaled Oxygen | - | - | | | Concentration | | | | + + + + + | Weight | 74.8 kg (165 lb) | 12/17/2015 7:00 AM | | | | | PDT | | + + + + + | Height | 175.3 cm (5' 9") | 12/17/2015 7:00 AM | | | | | PDT | | + + + + + | Body Mass Index | 24.37 | 12/17/2015 7:00 AM | | | | | PDT | | + + + + + documented in this encounter Discharge Instructions Instructions Osmel Wray, - 12/17/2015[facility] Post-op Instructions - Shoulder Surgery The following instructions are meant to guide you following any shoulder surgery until your first post-operative visit 7-12 days later. For any problems or questions, please call our office at [phone], Tuesday through Tuesday, 9:00 am - 5:00 pm. 1) Sleep at least 45 degrees upright from the horizontal position (there is less pain and s welling that way) until comfortable laying flat. A recliner works best. 2) Ice the shoulder for at least the first 3-5 days. 3) Keep the dressing clean and dry for 2 days. You may remove the dressing and shower for t he first time, 2 days after surgery. Then cover your incisions with gauze or band-aids depen ding on incision size. Do not immerse your wound in a bath, pool, or hot tub. Do not put oin tments, peroxide or creams on your incisions 4) Begin pendulum exercises the next day after your surgery. Stand upright and let your arm dangle at your side. Gentle 6 to 12 inch circles (let gravity do the work) for 1-2 minutes, then put the arm back in the sling. Repeat 4-6 times daily. 5) Remain in your sling at all times, except when you are showering or doing your pendulum exercises. 6) Unless you enjoy shoulder surgery so much that you want to do it again, please do not re ach / push / pull / lift / or carry anything with your operative arm. Writing and typing (wi th arm in the sling) are about the only appropriate and safe uses of your arm. 7) Take your pain medications on a regular scheduled dose (every 4-6 hours) for the first 2 4 hours, starting the moment you get home. When the nerve block wears off, it is usually nic y abrupt. You will be chasing the pain (bad strategy) if you are not already medicated. 8) After the first 24 hours, you can adjust your intake of pain medications on an as needed basis. Try not to completely cut off all medications at once. 9) All medicine refills must be handled during regular business hours. On-call doctors afte r hours and on week-ends don't know you and will not give you any refills. These instructions supersede any conflicting orders that you may have received from [facility], advice from friends, family members, eccParcus Medicaltical leaders, grocery store clerks, landon martinez, Michaela, Dr. Guerra, Dr. Gallego, sports heroes, etc. If unsure, please call our office. Thank you, Osmel Wray D.O. [facility] [address] [place] [address] documented in this encounter Medications at Time of Discharge + + + +---------+ + + | Medication | Sig | Dispensed | Refills | Start | End Date | | | | | | Date | | + + + +---------+ + + | | Take 1-2 tablets by | 60 | 0 | 12/17/19 | | | HYDROcodone-acetamin | mouth every 6 hours | tablet | | 16 | 7 | | ophen (NORCO) 10-325 | as needed for Pain. | | | | | | mg per tablet | | | | | | + + + +---------+ + + documented as of this encounter H&P Notes Osmel Wray DO - 12/17/2015 7:31 AM PDTSURGICAL INTERIM HISTORY & PHYSICAL UPDATE Pt. Name/Age/: Km Hoff 20 y.o. 1995 Date of admission: 12/17/2015 The current H&P was reviewed. The patient was reexamined. Re-evaluation of the patient co nfirms the necessity for the scheduled procedure. No change has occurred in the patient s condition since the H&P was completed less than 30 days ago. VERIFICATION OF CONSENT (PARQ) The patient was counseled regarding the procedure, its indications, risks, potential compli cations and alternatives. Any questions were answered. Consent was obtained. Electronically signed by: Osmel Wray DO, 12/17/2015 7:32 [facility] Coby Navarro PA-C - 12/15/2015 12:27 PM PDTSubjective F/u Rt Shoulder; MRI Results [facility] History of Present Illness Km is a 20 year old RHD male, referred by Dr. Carl, with right shoulder pain and dis location who I recently asked to have an MRI with arthrogram to further evaluate for labral tears. Patient reminds me this started 10/21/15 on after he was bull riding and landed with h is shoulder above his head, causing his shoulder to dislocate. He complains of constant, mil d pain that gets worse with certain activities. He rates his pain at a 6/10. His pain does wake him from sleep at night at times. Aggravating factors include any movements that dr aw his arm away from his body, quick movements of the shoulder, and lifting any type of weig ht with the right arm. He is currently taking hydrocodone- acetaminophen 10-325mg for his pa in. He states that his shoulder does feel unstable, however he feels that this is improvi ng. He has not had injections in the shoulder. He has never participated in physical therap y for the shoulder. He was placed in a shoulder sling that he was wearing until it ripped wh ile he was riding horses. 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 Here today to discuss the resul ts of his MRI. Review of Systems Constitutional: no fever and no chills. Musculoskeletal: shoulder pain. Integumentary: no rashes and no skin lesions. Current Meds Hydrocodone-Acetaminophen 10-325 MG Oral Tablet; Therapy: (Recorded:03Dec2015) to Recorded Allergies No Known Drug Allergies Physical Exam Km remains well appearing 20yo male seen alone today Neurologic: Mental status:. the patient was oriented to person, place and time. Memory: short term memory intact and remote memory intact. Attention: the attention span was normal and normal concentrating ability. Observed mood and affect was appropriate. Cranial Nerves:. the cranial nerves were intact. Sensory exam:. the sensory exam was normal. light touch was intact. Coordination: balance was intact. gait is normal. posture is normal. Biceps: right 2+, left 2+. Triceps: right 2+, left 2+. Brachioradialis: right 2+, left 2+. Patella: right 2+, left 2+. Ankle Jerk: right 2+, left 2+. Cervical Spine: no deformity, erythema, ecchymosis, edema, or tenderness, ROM within normal limits in all planes, strength within normal limits in all planes and stability within norm al limits. Right Shoulder: Appearance: no AC joint hypertrophy, no AC joint step-off, no superior migration of the pro ximal portion of the clavicle, no proximal clavicle deformity, no midshaft clavicle deformit y, no deformity, does not appear dislocated, no ecchymosis, no erythema, no scapular winging , no skin blanching, no skin tenting and no swelling. Tenderness: bicipital groove and greater tuberosity, but not the AC joint, not the deltoid , not the subacromial bursa, not the supraspinatus muscle, not the lesser tuberosity and all other anatomic structures non-tender. Forward flexion: active range of motion 140 degrees, painful, passive range of motion 150 d egrees, painful and 5/5 strength. Extension: normal active ROM, not painful, normal passive ROM and 5/5 strength. Abduction: normal active ROM, painful, normal passive ROM and 4/5 strength. Adduction: normal active ROM, not painful, normal passive ROM and 5/5 strength. Internal rotation: normal active ROM, painful, normal passive ROM and 5/5 strength. External rotation: normal active ROM, painful, normal passive ROM and 5/5 strength. Rotator Cuff: negative Painful Arc, negative Will test, negative Neer test, negative Jr p Arm test and negative Empty Can test. Labrum and Stability: positive Edwards's test, positive Anterior-Posterior Slide and positiv e Apprehension test, but negative Sulcus sign. AC Joint: negative AC provocation and negative Scarf test. Biceps Testing: negative Yergason's test and negative Speed's test. Left Shoulder: Appearance: no AC joint hypertrophy, no belly of the biceps sherrie deformity, no superior m igration of the proximal portion of the clavicle, no proximal clavicle deformity, no midshaf t clavicle deformity, no deformity, no ecchymosis, no erythema, no scapular winging, no skin blanching, no skin tenting and no swelling. Tenderness: None, not the AC joint, not the bicipital groove, not the deltoid, not the scap jerson, not the subacromial bursa, not the supraspinatus muscle, not the trapezius, not the gre ater tuberosity and not the lesser tuberosity. Palpatory Findings: no crepitus, no warmth and no masses. Forward flexion: normal active ROM, not painful, normal passive ROM, not painful and 5/5 st rength. Extension: normal active ROM, not painful, normal passive ROM, not painful and 5/5 strength . Abduction: normal active ROM, not painful, normal passive ROM, not painful and 5/5 strength . Adduction: normal active ROM, not painful, normal passive ROM, not painful and 5/5 strength . Internal rotation: normal active ROM, not painful, normal passive ROM, not painful and 5/5 strength. External rotation: normal active ROM, not painful, normal passive ROM, not painful and 5/5 strength. Rotator Cuff: negative Painful Arc, negative Will test, negative Neer test, negative Jr p Arm test and negative Empty Can test. Labrum and Stability: negative Edwards's test, negative Anterior-Posterior Slide, negative S ulcus sign and negative Apprehension test. AC Joint: negative AC provocation and negative Scarf test. Biceps Testing: negative Yergason's test and negative Speed's test. HEART: Regular. LUNGS: Clear. ABDOMEN: Soft. Nontender, nondistended. Positive bowel tones x4. NEURO: Intact without lateralizing deficits. Results/Data All Results [Data Includes: Current Encounter] 08Dec2015 03:00PM MR - shoulder or elbow or wrist with [id number] MR - Upper joint; shoulder or elbow or wrist with: FINAL RESULT History of dislocation on October 18, 2015 A comparison MRI without intra-articular contrast performed on November 19, 2015 ([facility] [place] is available. Routine sequences of the shoulder on a 1.5 Teri magnet after intra-articular contrast. Negative for swapnil contrast extravasation into the subacromial or subdeltoid bursa. There is however a bursal sided tear to the supraspinatus tendon. The articular side of the tendon is intact. Negative for retraction. This is best seen on coronal T1 FS 12-15. The muscle is normal. The infraspinatus and teres minor muscle and tendon are normal. As previously described on the comparison exam, there are small articular sided tears to the inferior subscapularis muscle, best seen on sagittal T1 FS 16-21. Contrast does extravasate back to the musculotendinous junction. The marrow signal deep to the Hill-Sachs deformity humeral head previously described has normalized. The extra and intra-articular biceps tendon and anchor are normal. On the sagittal sequences, the inferior glenohumeral ligaments are not well visualized. Contrast outlines debris. The middle glenohumeral ligament is intact. The superior glenohumeral ligament is normal. On sagittal #14 there is debris deep to the coronoid process. The free edge of the inferior labrum is elevated with contrast, best seen on axial 14-16. Possibly small small avulsed labral fragment seen only on coronal T1 FS #13-14. Elsewhere the labrum is intact. Impression: 1. Bursal sided supraspinatus tendon tears 2. Inferior subscapularis tendon tears 3. Ill-defined inferior glenohumeral ligaments with debris 4. Anterior inferior labral avulsion with possible small avulsed labral fragment free floating in contrast CARA YUEN MD CC: OSMEL WRAY T: 11:08 12/09/15 Trade Show Specialist: Vijay [id number] 02:30PM X-ray - Shoulder arthrogram [id number] X-ray - Shoulder athrography: FINAL RESULT After informed consent, the skin was cleansed with Betadine and local anesthesia obtained with 2% lidocaine. Using fluoroscopy, a 20-gauge spinal needle was placed into the joint and 10-12 cc of dilute gadolinium/Isovue was injected without complication. Impression: Satisfactory arthrogram prior to MRI scan. CARA YUEN MD CC: OSMEL WRAY T: 15:57 12/08/15 Trade Show Specialist: Vijay Views: complete shoulder series of the right shoulder. Findings: no fracture, no dislocation, no bony lesions, the soft tissues were normal and no rmal joint spaces. Exam description: right shoulder MRI arthrogram. Indications: shoulder instability and labral tear. Bone/Articular structures: all bony and articular structures appeared normal and no degenerative changes were noted. Labrum: anterior labral tear. Rotator cuff: appeared normal and intact and no evidence of i mpingement was noted. Biceps tendon complex: appeared normal and intact. Assessment Closed dislocation of right shoulder, initial encounter (S43.004A) SLAP lesion of right shoulder (S43.431A) Ongoing pain in first time dislocator right shoulder Bankart tear seen on MRI arthrogram Plan Right shoulder scope with anterior labral repair, capsular shift CC: Dr. Carl We discussed the risks and benefits of the surgery as well as alternatives to surgery. Thes e include, but are not limited to, bleeding; infection; blood clots; breathing difficulty; p ulmonary embolism; need for more surgery; damage to nerves, blood vessels, muscles and other anatomic structures; complications associated with anesthesia, up to and including . T he patient understands that orthopedic implants may be used during the surgery. The patient understands these risks and understands the proposed surgery and has had their questions ans wered. Signatures Electronically signed by : Osmel Wray D.O.; Dec 10 2015 4:23PM PST (Author) documented in this encounter Miscellaneous Notes Op Note - Osmel Wray DO - 12/17/2015 9:19 AM Audie Wray DO Physician .DATE OF OPERATION/PROCEDURE: 12/17/2015. PRIMARY SURGEON: Osmel Wray DO PREOPERATIVE DIAGNOSIS: right shoulder instability with anterior inferior labral tear POSTOPERATIVE DIAGNOSIS: same PROCEDURE PERFORMED: Arthroscopy right shoulder with anterior labral repair and capsular sh ift MOLD SANDER: Coby Chan PA-C ANESTHESIOLOGIST: Lynette ANESTHESIA TYPE: general, intrascalene block ESTIMATED BLOOD LOSS: 5 ml INDICATIONS FOR SURGERY: The patient is a 20 y.o.. yo. male. who has had pain in his right shoulder over the past several months. he. has had several dislocations over the past severa l months and now has gross instability. MRI shows labral tear anterior-inferior DESCRIPTION OF OPERATIVE EVENTS: In the preoperative area, the right shoulder was marked. T he patient was then taken back to the operative suite, and placed in the supine position whe reupon all bony prominences were well padded. Dr. Ojeda had administered an ultrasound-guid ed interscalene block in the preoperative area. At this time, general anesthetic was then ad ministered through an LMA. The patient was laid supine in the Left lateral recumbent positio n and again all bony prominences were well padded including pillows under both knees and an axillary roll. I then examined his operative shoulder under anesthesia, and he. showed full range of motion and gross anterio r instability. The right shoulder was then sterilely prepped and draped in the standard fashion and a surg ical pause was performed confirming the appropriate surgical site. I then anesthetized the p ortal sites using 0.5% Naropin and entered the shoulder using a standard posterior approach. I inspected the shoulder in a stepwise fashion and the following findings were encountered: GLENOHUMERAL JOINT: Normal articular surfaces. The superior labrum had a large sub labral foramen but with good attachment of the biceps t endon The anterior labrum was avulsed from the 2:30 position to the 5:30 position. There was a d rive-through sign noted in the anterior shoulder. ANTERIOR SHOULDER: The subscapularis tendon was normal. The middle glenohumeral ligament wa s normal. There were no loose bodies noted in the anterior shoulder. The intra-articular por tion of the biceps was normal. AXILLARY RECESS: This was large and loose, but free of loose bodies. POSTERIOR SHOULDER: Posterior labrum was normal. There were no loose bodies noted in the po sterior shoulder. ROTATOR CUFF: The undersurface of the supraspinatus and infraspinatus were normal. At this time the anterior portal was established as well as the low anterior portal. A pro be was then used to define the tear around the anterior labrum. It was visualize to be scar red around the anterior glenoid neck and a [place] was used to free up the anterior labrum off of the anterior glenoid neck. At this time I used a shaver and a rasp to clean soft tissue off of the anterior labrum and also to clean soft tissue off of the anterior glenoid to ach ieve a bleeding bed of bone onto which repair the anterior labrum. At this point through the low anterior portal 3 [employer] tack anchors were then in serted into the anterior glenoid at approximately 5:30, 4:30 and 3:30 positions. These were single loaded anchors and one arm of the suture was then passed behind the anterior labrum and portions of the anterior capsule were also included in this bite. An assistant spa manager did a ca psular shift by grasping the anterior labrum and reducing it back up onto the anterior gleno id also shifting it superiorly. A sliding, locking not was then tied and backed up with danial f hitches on all three of the anchors. A probe was then used to ascertain the quality of th e repair which was very good. The repair very nicely eliminated the drive through sign in t he anterior shoulder and excellent stability was noted with testing. There was a good bumper effect of the anterior labrum on the anterior glenoid. The arthroscopy equipment was removed from the shoulder and the portals were closed using a 3-0 nylon. A sterile dressing was then applied as well as a shoulder immobilizer. A PolarCa re cooling unit will be applied in the postoperative area. The patient was then awakened, ex tubated, and transferred to the recovery room in stable condition, having tolerated this pro cedure well. DICTATED BY: Osmel Wray DO 12/17/2015. documented in this encounter Plan of Treatment Not on filedocumented as of this encounter Procedures + +--------+ + + + | Procedure Name | Priori | Date/Time | Associated Diagnosis | Comments | | | ty | | | | + +--------+ + + + | ARTHROSCOPY SHOULDER | | 12/17/2015 | Superior glenoid | | | W/ OR W/O OPEN | | 7:39 AM | labrum lesion of | | | LABRAL REPAIR | | PDT | right shoulder, | | | | | | initial encounter | | | | | | Dislocation of right | | | | | | shoulder joint, | | | | | | initial encounter | | + +--------+ + + + documented in this encounter Visit Diagnoses Not on filedocumented in this encounter Administered Medications + +--------+ + +------+------+ | Medication Order | MAR | Action | Dose | Rate | Site | | | Action | Date | | | | + +--------+ + +------+------+ | HYDROcodone-acetaminophen | Given | 12/17/19 | 1 tablet | | | | (NORCO) 10-325 mg per tablet 1-2 | | 16 10:53 | | | | | tablet 1-2 tablet, Oral, EVERY 4 | | AM PDT | | | | | HOURS PRN, Pain, Starting Wed | | | | | | | 12/17/15 at 0947, If ineffective or | | | | | | | not tolerated use Oxycodone if | | | | | | | ordered., Post-op/Phase II | | | | | | + +--------+ + +------+------+ +---+---+ | | | +---+---+ + +---------+ +---+---+---+ | lactated ringers (LR) infusion | New Bag | 12/17/19 | | | | | at 10-100 mL/hr, Intravenous, | | 16 9:16 | | | | | CONTINUOUS, Starting Tue12/17/15 | | AM PDT | | | [...] | | 4 mg 4 mg, Intravenous, EVERY 6 | | 16 10:23 | | | | | HOURS PRN, Nausea, Vomiting, | | AM PDT | | | | | Starting Tue12/17/15 at 0947, | | | | | | | First line agent Use PO option | | | | | | | unless NPO status or unable to | | | | | | | tolerate., Post-op/Phase II | | | | | | + +-------+ +------+---+---+ +---+---+ | | | +---+---+ + +---------+ +---------+---+ + | scopolamine (TRANSDERM-SCOP) 1 | Patch | 12/17/19 | 1 patch | | Ear-Behi | | mg/3 days 1 patch 1 patch, | Applied | 16 7:36 | | | nd Left | | Transdermal, ONCE PRN, pre-op, | | AM PDT | | | | | Starting 12/17/15 at 0734, For | | | | | | | 1 dose, Each patch contains 1.5 | | | | | | | mg and is designed to deliver 1 | | | | | | | mg over 3 days. DO NOT CUT patch. | | | | | | | (If patch needed, use | | | | | | | occlusive dressing to expose only | | | | | | | of patch to skin.), Pre-op | | | | | | + +---------+ +---------+---+ + +---+---+ | | | +---+---+ documented in this encounter
--- OUTSIDE RECORDS SUMMARY | ~2020-03-11 | XMS | Encounter Summary ---
Demographics + + + | Address | [address] | | | [place] [address] | + + + | Home Phone | | + + + | Preferred Language | Unknown | + + + | Marital Status | Single | + + + | Episcopal Affiliation | 1041 | + + + | Race | Unknown | + + + | Ethnic Group | Unknown | + + + Author + + + | Author | [facility] | | | and [place] | + + + | Organization | [facility] | | | and [place] | + + + | Address | Unknown | + + + | Phone | Unavailable | + + + Support + + + + + | Name | Relationship | Address | Phone | + + + + + | Vidal Aceves/Cristiana White | ECON | [address] | | | [place] | | [place] [address] | | + + + + + | Juan Carlos Mejia | ECON | Unknown | | + + + + + Care Team Providers + +------+ + | Care Mold Carpenter Name | Role | Phone | + +------+ + | No, Physician | PCP | Unavailable | + +------+ + Reason for Visit + +--------+ + | Reason | Onset | Comments | | | Date | | + +--------+ + | Medication Refill | 08/27/ | | | | 2014 | | + +--------+ + Encounter Details +--------+ + + + + | Date | Type | Department | Care Team | Description | +--------+ + + + + | 08/27/ | Telephone | [facility] | Khari Carl, | Medication Refill | | 2014 | | ORTHOPEDIC SURGERY | [address] | | | | [address] | [place] | | | | | [place] | [address] | | | | | [address] | | | | | | [phone] | | | +--------+ + + + [...] Notes Telephone Encounter - Helen Atwood - 08/28/2015 1:14 PM PSTCristiana Hoff picked up Rx with valid Id. [id number] signed by Helen Atwood at 1:15 PM PSTTelephone Encounter - Krissy Benjamin - 08/27/2015 3:44 PM PSTPatient noti fied script ready for filler picker at [phone]. elephone Encounter - Helen Atwood - 08/27/2015 3:40 PM PSTLeft christina spears for patient to return our call. elephone Encounter - Yas Simms Cert MA - 08/27/2015 11:[address]Willard cleveland to fill the medication requested. Rx prepared and signed by . Rx placed in the designated area for the patient filler picker. Please contact the patient to let the patient know that the Rx is ready. The patient will need to provide a form of ID when pi cking up the prescription. Please verify the patients ID at filler picker. ikki gan Encounter - Yas Simms Cert MA - 08/27/2015 9:16 AM PST*Deferred to Dr. Silvino stinson* ejaleesa gan Encounter - Krissy Benjamin - 08/27/2015 8:48 AM PSTPatient called requesting a refill of hydrocodone 10 mg. Patient will be out tomorrow 08/28/2015. Patient also stated that his father Reji or mother Cristiana Hoff will filler picker script. documented in this encounter Plan of Treatment Not on filedocumented as of this encounter Visit Diagnoses Not on filedocumented in this encounter"
--- OUTSIDE RECORDS SUMMARY | ~2020-03-11 | XMS | Encounter Summary ---
Demographics + + + | Address | [address] | | | [place] [address] | + + + | Home Phone | | + + + | Preferred Language | Unknown | + + + | Marital Status | Single | + + + | Gnosticist Affiliation | 1041 | + + + | Race | Unknown | + + + | Ethnic Group | Unknown | + + + Author + + + | Author | [facility] | | | and [place] | + + + | Organization | [facility] | | | and [place] | + + + | Address | Unknown | + + + | Phone | Unavailable | + + + Support + + + + + | Name | Relationship | Address | Phone | + + + + + | Vidal Aceves/Cristiana White | ECON | [address] | | | [place] | | [place] [address] | | + + + + + | Juan Carlos Mejia | ECON | Unknown | | + + + + + Care Team Providers + +------+ + | Care Canal Driver Name | Role | Phone | + [...] Closed | | Radiology | Diagnoses | Siddhartha, | [facility] | | | | | Right | Khari Linder MD | [address] | | | | | shoulder | [address] | [place], | | | | | pain | [place] | [place] | | | | | Procedures | [place] | [address] | | | | | MRI Shoulder | [address] | Phone: | | | | | Right wo | Phone: | [phone] | | | | | Contrast | [phone] | Fax: | | | | | | Fax: | [phone] | | | | | | [phone] | | +--------+--------+ + + + + Reason for Visit Diagnostic/Screening (Routine) +--------+--------+ + + + + | Status | Reason | Specialty | Diagnoses / | Referred By | Referred To | | | | | Procedures | Contact | Contact | +--------+--------+ + + + + | Closed | | Radiology | Diagnoses | Siddhartha, | [facility] | | | | | Right | Khari Linder MD | [address] | | | | | shoulder | [address] | [place], | | | | | pain | [place] | [place] | | | | | Procedures | [place], [place] | [address] | | | | | MRI Shoulder | [address] | Phone: | | | | | Right wo | Phone: | [phone] | | | | | Contrast | [phone] | Fax: | | | | | | Fax: | [phone] | | | | | | [phone] | | +--------+--------+ + + + + Encounter Details +--------+ + + + + | Date | Type | Department | Care Team | Description | +--------+ + + + + | 11/18/ | Hospital | [facility] | Khari Carl, | Right shoulder pain | | 2016 | Encounter | [facility] MRI [address] | | | | | [address] [place], | [place], [place] | | | | | [place] [address] | [address] | | | | | [phone] | | | +--------+ + + + [...] tablets by | 75 | 0 | 11/20/19 | | | HYDROcodone-acetamin | mouth EVERY 6 TO 8 | tablet | | 16 | 6 | | ophen (NORCO) 10-325 | HOURS NEEDED. | | | | | | mg per tablet | | | | | | + + + +---------+ + + | | Take 1-2 tablets by | 75 | 0 | 11/07/19 | | | HYDROcodone-acetamin | mouth EVERY 6 TO 8 | tablet | | 16 | 6 | | ophen (NORCO) 10-325 [...] + +--------+ + + + | MRI SHOULDER RIGHT | Routin | 11/19/2015 | Right shoulder | Results for this | | WO CONTRAST | e | 4:36 PM | pain | procedure are in the | | | | PST | | results section. | + +--------+ + + + documented in this encounter Results MRI Shoulder Right wo Contrast (11/19/2015 4:36 PM PST) + + | Specimen | + + | | + + + + + | Narrative | Performed At | + + + | MRI SHOULDER RIGHT WO CONTRAST. 11/19/2015 2:30 PM HISTORY: | [facility] | | Right shoulder pain- Evaluate for bankhart tear. Recent shoulder | [facility] | | dislocation on 10/18/2015. COMPARISON: Right shoulder x-ray | [facility] | | 10/18/2015 TECHNIQUE: Multiplanar, multisequence MRI images of the | - IMAGING | | right shoulder were obtained without intra-articular contrast. | | | FINDINGS: The acromioclavicular joint is within normal limits. There | | | is a type II/III acromion, with some lateral downsloping. Fluid | | | signal is present within the subdeltoid bursa, compatible with | | | bursitis or other recent inflammatory event. Mild signal change | | | is noted within the distal supraspinatus tendon, which may be related | | | to artifact, although strain or other tendinopathy cannot be | | | excluded. The infraspinatus tendon is within normal limits. The | | | teres minor tendon is within normal limits. The subscapularis | | | tendon is within normal limits. Increased fluid signal is seen | | | within the subscapularis muscle, particularly inferiorly, suggestive | | | of inflammation, as might be seen with recent muscle strain/tearing. | | | The long head of the biceps tendon is appropriately situated | | | within the bicipital groove, and is within normal limits. There | | | is no evidence of muscular atrophy to suggest denervation in the | | | rotator cuff muscles. Although lack of intra-articular contrast | | | somewhat hinders evaluation of the labrum, there is the appearance of | | | tear of the anterior labrum, without evidence of abnormality of the | | | anterior osseous portion of the glenoid. Signal change is seen in the | | | superior labrum, consistent with degeneration with probable tear. | | | There is mildly increased fluid signal with signal heterogeneity in | | | the axillary recess of the shoulder joints, suggestive of disruption | | | or other injury of the inferior glenohumeral ligament. Cannot | | | exclude injury of the anterior portion of the middle glenohumeral | | | ligament. There is very mild indentation along the posterior | | | lateral aspect of the humeral head, with mild adjacent signal change, | | | suggestive of very mild Hill-Sachs deformity. No focal | | | abnormality of the cartilage is detected. The overlying soft | | | tissues are unremarkable. IMPRESSION - Appearance of tear of the | | | anterior and superior labrum. Appearance of disruption or other | | | injury of the inferior glenohumeral ligament. Cannot exclude injury | | | of the anterior portion of the middle glenohumeral ligament. | | | Increased fluid signal seen within portions of the subscapularis | | | muscle, suggestive of inflammation, as might be seen with recent | | | muscle strain/tearing. Very mild indentation along the posterior | | | lateral aspect of the humeral head, with associated bone marrow | | | signal abnormality, suggestive of very mild Hill-Sachs deformity. | | | Possible injury/tendinopathy of the supraspinatus tendon, although | | | this appearance may also be related to artifact. Dictated and | | | Signed by: Aubrey Lerma MD Electronically signed: 11/19/2015 | | | 6:02 PM | | + + + + + | Procedure Note | + + | Dominic, Rad Results In - 11/19/2015 6:05 PM PST MRI SHOULDER RIGHT WO CONTRAST. | | 11/19/2015 2:30 PMHISTORY: Right shoulder pain- Evaluate for bankhart tear. Recent | | shoulderdislocation on 10/18/2015.COMPARISON: Right shoulder x-ray 10/18/2015TECHNIQUE: | | Multiplanar, multisequence MRI images of the right shoulder wereobtained without | | intra-articular contrast.FINDINGS:The acromioclavicular joint is within normal | | limits.There is a type II/III acromion, with some lateral downsloping.Fluid signal is | | present within the subdeltoid bursa, compatible with bursitis orother recent | | inflammatory event.Mild signal change is noted within the distal supraspinatus tendon, | | which may berelated to artifact, although strain or other tendinopathy cannot be | | excluded.The infraspinatus tendon is within normal limits.The teres minor tendon is | | within normal limits.The subscapularis tendon is within normal limits. Increased fluid | | signal isseen within the subscapularis muscle, particularly inferiorly, suggestive | | ofinflammation, as might be seen with recent muscle strain/tearing.The long head of the | | biceps tendon is appropriately situated within thebicipital groove, and is within normal | | limits.There is no evidence of muscular atrophy to suggest denervation in the | | rotatorcuff muscles.Although lack of intra-articular contrast somewhat hinders | | evaluation of thelabrum, there is the appearance of tear of the anterior labrum, without | | evidenceof abnormality of the anterior osseous portion of the glenoid.Signal change is | | seen in the superior labrum, consistent with degeneration withprobable tear.There is | | mildly increased fluid signal with signal heterogeneity in the axillaryrecess of the | | shoulder joints, suggestive of disruption or other injury of theinferior glenohumeral | | ligament. Cannot exclude injury of the anterior portionof the middle glenohumeral | | ligament.There is very mild indentation along the posterior lateral aspect of the | | humeralhead, with mild adjacent signal change, suggestive of very mild | | Hill-Sachsdeformity.No focal abnormality of the cartilage is detected. The overlying | | soft tissues are unremarkable.IMPRESSION -Appearance of tear of the anterior and | | superior labrum.Appearance of disruption or other injury of the inferior glenohumeral | | ligament. Cannot exclude injury of the anterior portion of the middle | | glenohumeralligament.Increased fluid signal seen within portions of the subscapularis | | muscle,suggestive of inflammation, as might be seen with recent muscle | | strain/tearing.Very mild indentation along the posterior lateral aspect of the humeral | | head,with associated bone marrow signal abnormality, suggestive of very mildHill-Sachs | | deformity.Possible injury/tendinopathy of the supraspinatus tendon, although | | thisappearance may also be related to artifact.Dictated and Signed by: Aubrey Lerma | | Electronically signed: 11/19/2015 6:02 PM | |probable tear. | | | |There is mildly increased fluid signal with signal heterogeneity in the axillary | |recess of the shoulder joints, suggestive of disruption or other injury of the | |inferior glenohumeral ligament. Cannot exclude injury of the anterior portion | |of the middle glenohumeral ligament. | | | |There is very mild indentation along the posterior lateral aspect of the humeral | |head, with mild adjacent signal change, suggestive of very mild Hill-Sachs | |deformity. | | | |No focal abnormality of the cartilage is detected. | | | |The overlying soft tissues are unremarkable. | | | |IMPRESSION - | |Appearance of tear of the anterior and superior labrum. | | | |Appearance of disruption or other injury of the inferior glenohumeral ligament. | |Cannot exclude injury of the anterior portion of the middle glenohumeral | |ligament. | | | |Increased fluid signal seen within portions of the subscapularis muscle, | |suggestive of inflammation, as might be seen with recent muscle strain/tearing. | | | |Very mild indentation along the posterior lateral aspect of the humeral head, | |with associated bone marrow signal abnormality, suggestive of very mild | |Hill-Sachs deformity. | | | |Possible injury/tendinopathy of the supraspinatus tendon, although this | |appearance may also be related to artifact. | | | |Dictated and Signed by: Aubrey Lerma MD | | Electronically signed: 11/19/2015 6:02 PM | + + + + + + + | Performing | Address | City/State/[facility] | Phone Number | | Organization | | | | + + + + + | [address] | [address] | [place] | [phone] | | [facility] | | [address] | | | - IMAGING | | | | + + + + + documented in this encounter Visit Diagnoses + + | Diagnosis | + + | Right shoulder pain Pain in joint, shoulder region | + + documented in this encounter"
--- OUTSIDE RECORDS SUMMARY | ~2020-03-11 | XMS | Encounter Summary ---
Demographics + + + | Address | [address] | | | [place] [address] | + + + | Home Phone | | + + + | Preferred Language | Unknown | + + + | Marital Status | Single | + + + | Evangelical Affiliation | 1041 | + + + | Race | Unknown | + + + | Ethnic Group | Unknown | + + + Author + + + | Author | [facility] | | | and [place] | + + + | Organization | [facility] | | | and [place] | + + + | Address | Unknown | + + + | Phone | Unavailable | + + + Support + + + + + | Name | Relationship | Address | Phone | + + + + + | Vidal Aceves/Cristiaan White | ECON | [address] | | | [place] | | [place] [address] | | + + + + + | Juan Carlos Mejia | ECON | Unknown | | + + + + + Care Team Providers + +------+ + | Care Skidder Name | Role | Phone | + +------+ + | No, Physician | PCP | Unavailable | + +------+ + Reason for Visit +--------+--------+ + | Reason | Onset | Comments | | | Date | | +--------+--------+ + | Other | 10/06/ | | | | 2016 | | +--------+--------+ + Encounter Details +--------+ + + + + | Date | Type | Department | Care Team | Description | +--------+ + + + + | 10/06/ | Telephone | [facility] | Khari Carl, | Other | | 2016 | | ORTHOPEDIC SURGERY | [address] | | | | | [address] | [place] | | | | | [place] | [address] | | | | | [address] | | | | | | [phone] | | | +--------+ + + + [...] Notes Telephone Encounter - Krissy Benjamin - 10/06/2016 2:58 PM PSTPATIENT SCHEDULEDElectron gris signed by Krissy Benjamin at 10/06/2016 3:00 PM PSTTelephone Encounter - Yas Villarreal Cert MA - 10/06/2016 11:27 AM PSTError. Disregard message about rx wrong solange rt. Please Call patient and schedule Tuesday morning 10/08/2016 at 8:30. elephone Encounter - Yas Tillman Cert MA - 10/06/2016 10:[address]Willard cleveland to fill the medication req uested. Rx prepared and signed by . Rx placed in the designated area for the patie nt pickup driver. Please contact the patient to let the patient know that the Rx is ready. The pat ient will need to provide a form of ID when picking up the prescription. Please verify the p atients ID at pickup driver. elephon e Encounter - Molly Fam - 10/06/2016 9:00 AM PSTPatient mom Leora called stating that patient was seen at [facility] on 10/03/16. Patient was snowboarding last weekend and [address] injured Left ACL, DOI: 10/03/16. Patient had xray of left knee 3 Vw, and was given a br kerri and crutches. Patient mom advised that we were not integration director on 10/03/16 and he may have to call Dr Lira. Patient mom stated understanding. Please advise and call Leora at Previous encounter: Left knee ACL repair DOS:07/11/15 documented in this encounter Plan of Treatment Not on filedocumented as of this encounter Visit Diagnoses Not on filedocumented in this encounter"
--- OUTSIDE RECORDS SUMMARY | ~2020-03-11 | XMS | Encounter Summary ---
Demographics + + + | Address | [address] | | | [place] [address] | + + + | Home Phone [...] + + + | Author | [facility] | | | and [place] | + + + | Organization | [facility] | | | and [place] | + + + | Address | Unknown | + + + | Phone | Unavailable | + + + Support + + + + + | Name | Relationship | Address | Phone | + + + + + | Vidal Aceves/Cristiana White | ECON | [address] | | | [place] | | [place] [address] | | + + + + + | Juan Carlos Mejia | ECON | Unknown | | + + + + + Care Team Providers + +------+ + | Care Card Reader Name | Role | Phone | + +------+ + | No, Physician | PCP | Unavailable | + +------+ + Reason for Visit + +--------+ + | Reason | Onset | Comments | | | Date | | + +--------+ + | Medication Refill | 10/28/ | | | | 2015 | | + +--------+ + Encounter Details +--------+--------+ + + + | Date | Type | Department | Care Team | Description | +--------+--------+ + + + | 10/28/ | Refill | [facility] | Khari Carl, | Medication Refill | | 2015 | | ORTHOPEDIC SURGERY | [address] | | | | [address] | [place] | | | | | [place] | [address] | | | | | [address] | | | | | | [phone] | | | +--------+--------+ + + + [...] Notes Telephone Encounter - Molly Fam - 10/29/2015 2:38 PM PSTPatients father Vidal - picked up script with ID # [id number] y signed by Molly Fam at 10/29/2015 2:41 PM PSTTelephone Encounter - Molly Fam - 10/29/2015 1:54 PM PSTPatient called stating his mother will pick his Script and was damon d to bring her valid ID when picking up script Electronically signed by Molly Fam at 0 10/29/2015 1:57 PM PSTTelephone Encounter - Krissy Benjamin - 10/29/2015 11:48 AM PSTAtte mpted to contact patient but voicemail has not been set up yet. elephone Encounter - Yas Simms Cert MA - 10/29/2015 10:[address]Willard cleveland to fill the medication requested. Rx prepare d and signed by . Rx placed in the designated area for the patient continuous pickling line pickler. Please contact the patient to let the patient know that the Rx is ready. The patient will need to provide a form of ID when picking up the prescription. Please verify the patients ID at continuous pickling line pickler. elephirineo gan Encounter - Yas Simms Cert MA - 10/28/2015 2:03 PM PST*Deferred to Dr. Silvino stinson* elephon e Encounter - Krissy Benjamin - 10/28/2015 1:27 PM PSTPatient is requesting a refill on his hydrocodone 10-325 mg. Patient can be reached at [phone]. documented in this encounter Plan of Treatment Not on filedocumented as of this encounter Visit Diagnoses Not on filedocumented in this encounter"
--- OUTSIDE RECORDS SUMMARY | ~2020-03-11 | XMS | Encounter Summary ---
Demographics + + + | Address | [address] | | | [place] [address] | + + + | Home Phone | | + + + | Preferred Language | Unknown | + + + | Marital Status | Single | + + + | Holiness Affiliation | 1041 | + + + | Race | Unknown | + + + | Ethnic Group | Unknown | + + + Author + + + | Author | [facility] | | | and [place] | + + + | Organization | [facility] | | | and [place] | + + + | Address | Unknown | + + + | Phone | Unavailable | + + + Support + + + + + | Name | Relationship | Address | Phone | + + + + + | Vidal Aceves/Cristiana White | ECON | [address] | | | [place] | | [place] [address] | | + + + + + | Juan Carlos Mejia | ECON | Unknown | | + + + + + Care Team Providers + +------+ + | Care Research Coordinator Name | Role | Phone | + [...] of right | [address] | [address] | | | | | humerus, | [address] | [place], | | | | | subsequent | [place] | [place] [address] | | | | | encounter | [address] | Phone: | | | | | Other | Phone: | [phone] | | | | | instability, | [phone] | Fax: | | | | | right | Fax: | [phone] | | | | | shoulder | [phone] | | | | | | S43.014D [...] Description | +--------+---------+ + + + | 04/15/ | Office | [facility] | Sheldon Montgomery, | Anterior dislocation | | 2017 | Visit | [facility] | [address] | of right humerus, | | | | [address] | [address] | subsequent | | | | [place] [address] | [place] [address] | encounter; | | | | [phone] | [phone] | Instability of right | | | | | | shoulder joint | | | | | Pascual Logan, PT | | | | | | [address] [facility] | | | | | | [place] [address] | | | | | | [phone] | | | | | | | [...] this encounter Progress Notes Pascual Logan - 04/15/2017 7:30 AM PDT [facility] [address] [place] [address] Physical Therapy Daily Treatment Note Date: 04/15/2017 Patient Information Patient Name: Km Hoff Date of : 1995 Age: 21 y.o. Encounter Diagnoses Code Name Primary? S43.014D Anterior dislocation of right humerus, subsequent encounter M25.311 Instability of right shoulder joint Date of Onset: 02/16/2017 Referring Provider: Sheldon Montgomery MD # of PT Visits to Date: 4 Start Time: 729 Stop time: 814 Duration: 45 minutes Timed Treatment Codes: 45 minutes Rehab Precautions Flowsheet Row Office Visit from 03/24/2017 in [facility] CTR THERAPY PT OP Rehab Precautions Precautions Comments labral repair protocol Pain Assessment: Pain Scale Used: NUMERIC Pain Rating Pre Assessment: 0 Subjective: Patient reports good progress towards goals listed below. States he has still b een doing his core stability exercises and working on endurance at home. All other exercises are going well. Goals: Patient Specific Functional Scale Goal 1: [...] AAROM supine with cane shoulder ER to 20deg AROM PNF UE D1 and D2 with minor manual resistance 1x10 Supine shoulder protraction/ punch 2lb 2x15 Supine shoulder protraction with perturbations [id number] Prone lumbar extension/ supermans with shoulder "i's" 2x12 Prone I, T, and Y's 1x15 Standing shoulder protraction on ball counterclockwise and clockwise 2x15 Standing shoulder isometrics ER , IR , flexion, extension at 0deg 1x10 with 5sec hold Standing red theraband quick movements 20deg shoulder flx, ext, abduction, add 1x10 Manual therapy: Grade four thoracic mobilization x3 Assessment: Patient presents s/p surgery on 02/16/17. He presents with improved scapular control during o verhead AROM. Demonstrates good scapular control during resisted exercises and is progressin g well. Due to chronic instability we are progressing resisted exercises slowly and focusing more on postural endurance and control with short breaks between exercises. Plan: Continue AROM in all cardinal planes. Progress ER to 25deg. Standing pushup plus at wall [facility] towel for isometric ER . Incorporate prone exercises for scapular stability. Electronically signed by: Pascual Logan, 04/15/2017 8:16 Patient Name: Km Hoff/: 1995/ documented in [...]
--- OUTSIDE RECORDS SUMMARY | ~2020-03-11 | XMS | Encounter Summary ---
Demographics + + + | Address | [address] | | | [place] [address] | + + + | Home Phone | | + + + | Preferred Language | Unknown | + + + | Marital Status | Single | + + + | Adventism Affiliation | 1041 | + + + | Race | Unknown | + + + | Ethnic Group | Unknown | + + + Author + + + | Author | [facility] | | | and [place] | + + + | Organization | [facility] | | | and [place] | + + + | Address | Unknown | + + + | Phone | Unavailable | + + + Support + + + + + | Name | Relationship | Address | Phone | + + + + + | Vidal Aceves/Cristiana White | ECON | [address] | | | [place] | | [place] [address] | | + + + + + | Juan Carlos Mejia | ECON | Unknown | | + + + + + Care Team Providers + +------+ + | Care Director Software Development Name | Role | Phone | + +------+ + | No, Physician | PCP | Unavailable | + +------+ + Reason for Visit + + + | Reason | Comments | + + + | Knee Pain | left ACL doi 122/17 | + + + Evaluate & Treat (Routine) +--------+--------+ + + + + | Status | Reason | Specialty | Diagnoses / | Referred By | Referred To | | | | | Procedures | Contact | Contact | +--------+--------+ + + + + | Closed | | Orthopedic | Diagnoses | Emergency, | Siddhartha, | | | | Surgery | Left knee | MD Rosanna | Khari Linder MD | | | | | injury | | [address] | | | | | | | [place], | | | | | | | [place] [address] | | | | | | | Phone: | | | | | | | [phone] | | | | | | | Fax: | | | | | | | [phone] | +--------+--------+ + + + + Encounter Details +--------+---------+ + + + | Date | Type | Department | Care Team | Description | +--------+---------+ + + + | 10/08/ | Office | [facility] | SiddharthaKhari, | Acute pain of left | | 2017 | Visit | ORTHOPEDIC SURGERY | MD [address] | knee (Primary Dx) | | | | [address] | [place] | | | | | [place] | [address] | | | | | [address] | | | | | | [phone] | | | +--------+---------+ + + + [...] Temperature | 36.6 C (97.9 F) | 10/08/2016 8:41 AM | | | | | PST | [...] Weight | 78.5 kg (173 lb) | 10/08/2016 8:41 AM | | | | | PST | | + + + + + | Height | 177.8 cm (5' 10") | 10/08/2016 8:41 AM | | | | | PST | | + + + + + | Body Mass Index | 24.82 | 10/08/2016 8:41 AM | | | | | PST | | + + + + + documented in this encounter Progress Notes Khari Carl MD - 10/10/2016 1:38 PM PST Patient returns with a new injury to his left knee He is s/p AcL reconstruction by me a year ago He did well and returned to unrestricted activities He was snowboarding on 10/03 and went off a jump and landed hard on the flats He had acute left knee pain He was limping at first but didn't have an immediate effusion He hasn't had any mechanical catching or locking He localized the pain to the medial side It still is sore but is getting better On exam today he has no joint effusion He has a negative vishal with firm end point No varus or valgus stress instability He is tender over the medial joint line No other areas of tenderness to palpation He has full unrestricted range of motion xrays reviewed by me show no fractures The cortical button is in good position The tunnels are appropriate position I anticipate improvement Will see him again in 2 weeks 1:4 4 PM PSTdocumented in this encounter Plan of Treatment Not on filedocumented as of this encounter Visit Diagnoses + + | Diagnosis | + + | Acute pain of left knee - Primary | + + documented in this encounter
--- OUTSIDE RECORDS SUMMARY | ~2020-03-11 | XMS | Encounter Summary ---
Demographics + + + | Address | [address] | | | [place] [address] | + + + | Home Phone | | + + + | Preferred Language | Unknown | + + + | Marital Status | Single | + + + | Jainism Affiliation | 1041 | + + + | Race | Unknown | + + + | Ethnic Group | Unknown | + + + Author + + + | Author | [facility] | | | and [place] | + + + | Organization | [facility] | | | and [place] | + + + | Address | Unknown | + + + | Phone | Unavailable | + + + Support + + + + + | Name | Relationship | Address | Phone | + + + + + | Vidal Aceves/Cristiana White | ECON | [address] | | | [place] | | [place] [address] | | + + + + + | Juan Carlos Mejia | ECON | Unknown | | + + + + + Care Team Providers + +------+ + | Care Actuarial Science Professor Name | Role | Phone | + [...] of right | [address] | [address] | | | | | humerus, | [address] | [place], | | | | | subsequent | [place] | [place] [address] | | | | | encounter | [address] | Phone: | | | | | Other | Phone: | [phone] | | | | | instability, | [phone] | Fax: | | | | | right | Fax: | [phone] | | | | | shoulder | [phone] | | | | | | S43.014D [...] Description | +--------+---------+ + + + | 04/29/ | Office | [facility] | Sheldon Montgomery, | Instability of right | | 2017 | Visit | [facility] | [address] | shoulder joint | | | | [address] | [facility] | | | | | [place] [address] | [place], [place] [address] | | | | | [phone] | [phone] | | | | | | | | | | | | Pascual Logan, PT | | | | | | [address] | | | | | | [place] [address] | | | | | | [phone] | | | | | | | [...] this encounter Progress Notes Pascual Logan - 04/29/2017 7:30 AM PDT [facility] [address] [place] [address] Physical Therapy Progress Assessment Date: 04/29/2017 Patient Information Patient Name: Km Hoff Date of : 1995 Age: 21 y.o. Encounter Diagnoses Code Name Primary? M25.311 Instability of right shoulder joint Date of Onset: 02/16/2017 Referring Provider: Sheldon Montgomery MD Rehab Precautions Flowsheet Row Office Visit from 03/24/2017 in [facility] CTR THERAPY PT OP Rehab Precautions Precautions Comments labral repair protocol Rehab Learning Style Flowsheet Row Office Visit from 03/24/2017 in [facility] CTR THERAPY PT OP Learning Style Patient's Optimum Learning Style listening, performance of task Pain Assessment: Pain Scale Used: NUMERIC Pain Rating Pre Assessment: 0 SUBJECTIVE: Km Hoff has completed 5 visits for treatment of right shoulder pain s /p right labral repair 02/16/2017 after anterior shoulder dislocation two weeks prior. Patient reports improvements with shoulder motion and some strength. However continues to report mi d back mobility/ stiffness and endurance OBJECTIVE: Observation/Posture/Alignment: Minor right shoulder rotator cuff atrophy. Forward head and protracted shoulders bilateral. ROM: Initial Assessment Initial Assessment Progress Note / Discharge Progress Note / Discha rge Cervical: WNL Shoulder: Left Right Left Right Flexion: WNL 90 nt 170 Abduction: WNL 90 nt 170 ER at neutral: WNL 5 nt 45 IR Behind Back: WNL NT nt nt Elbow Flexion: WNL WNL nt nt Elbow Extension: WNL WNL Strength Testing: Initial Assessment Initial Assessment Progress Note / Discharge Progress Note / Discharge Left Right Left Right Supraspinatus: 5 3 nt 4 Infraspinatus: 5 3 nt 4- Subscapularis: 5 3 nt 4- Deltoid: 5 3 nt 4 Biceps: 5 3 nt 4 Triceps: 5 5 nt 4 Scapular Stabilizers: 4 4 nt 4 Accessory Joint Mobility: Right shoulder hypomobility Palpation: Multiple trigger points right rotator cuff muscles Neurovascular: Reflexes WNL Special Tests: Initial Assessment Initial Assessment Progress Note / Discharge Progress Not e / Discharge Left Right Left Right Scapulohumeral Rhythm: Minor winging Moderate winging nt Minor winging Outcome Measure: Initial Assessment Progress Note / Discharge DASH: 36/100% (A score of 0% = No Functional Disability of the UE) 18% Standardized Tests: Special Tests: Assessment Km Hoff has been participating in therapy for treatment of right shoulder pain s/ p right labral repair 02/16/2017 after anterior shoulder dislocation two weeks prior. Patient demonstrates objective improvements with shoulder PROM, strength, and mobility. Km rock continues to have impairments with thoracic mobility, endurance, coordination, and str ength which are affecting his ability to complete functional tasks such as regular gym routi ne and building fences. Patient requires continued skilled therapy services to achieve the f [facility] updated functional goals. Rehabilitation potential: Patient demonstrates excellent potential to [...] Patient Specific Functional Scale Goal 1 Status: 5 Patient Specific Functional Scale Goal 2: Patient [...] 03/24/2017 Certification To: 06/22/2017 Treatment Plan/Interventions PT Re-[id number] - Therapeutic [id number] - Neuromuscular Jxyvwvprvxx39514 - Therap eutic Lpetwcvuhh32202 - Manual Hkgyhcr13276 - Self Care/Home Zrquxrvrbp53018 - Elvybtszch616 14 - Electrical Stimulation, Aaxnidmngj56700 - Electrical Stimulation, Ixyqocsy46073 - Vasop neumatic Therapy Patient and/or family has indicated understanding of treatment needs and actively participa eloisa in the creation of this plan for care. Today's Treatment Start Time: 729 Stop time: 814 Duration: 45 minutes Timed Treatment Codes: 45 minutes # of PT Visits: 5 Objective: Therapeutic exercises: AAROM with sudha for flexion, scaption, and abduction 1x20 AAROM supine with cane shoulder ER to 20deg AROM PNF UE D1 and D2 with minor manual resistance 1x10 Supine shoulder protraction/ punch 2lb 2x15 Supine shoulder protraction with perturbations [id number] EC Prone lumbar extension/ supermans with shoulder "i's" 2x12 Prone I, T, W and Y's 2x15 Standing shoulder protraction on ball counterclockwise and clockwise 2x15 Standing shoulder isometrics ER , IR , flexion, extension at 0deg 1x10 with 5sec hold Standing red theraband quick movements 20deg shoulder flx, ext, abduction, add 1x10 Forearms in pillow case shoulder ER and protraction at wall 2x10 Manual therapy: Grade four thoracic mobilization x3 Next Visit: continue thoracic mobility and scapular stability. Electronically signed by: Pascual Logan, 04/29/2017 8:05 Patient Name: Km Hoff/: 1995/ s igned by Pascual Logan at 04/29/2017 8:21 AM PDTdocumented in this encounter Plan of Treatment Not on filedocumented as of this encounter Visit Diagnoses + + | Diagnosis | + + | Instability of right shoulder joint Other joint derangement, not elsewhere | | classified, shoulder region | + + documented in this encounter
--- OUTSIDE RECORDS SUMMARY | ~2020-03-11 | XMS | Encounter Summary ---
Demographics + + + | Address | [address] | | | [place] [address] | + + + | Home Phone | | + + + | Preferred Language | Unknown | + + + | Marital Status | Single | + + + | Religion Affiliation | 1041 | + + + | Race | Unknown | + + + | Ethnic Group | Unknown | + + + Author + + + | Author | [facility] | | | and [place] | + + + | Organization | [facility] | | | and [place] | + + + | Address | Unknown | + + + | Phone | Unavailable | + + + Support + + + + + | Name | Relationship | Address | Phone | + + + + + | Vidal Aceves/Cristiana White | ECON | [address] | | | [place] | | [place] [address] | | + + + + + | Juan Carlos Mejia | ECON | Unknown | | + + + + + Care Team Providers + +------+ + | Care Gun Barrel Finisher Name | Role | Phone | + +------+ + | No, Physician | PCP | Unavailable | + +------+ + Reason for Visit + +--------+ + | Reason | Onset | Comments | | | Date | | + +--------+ + | Medication Refill | 11/18/ | | | | 2015 | | + +--------+ + Encounter Details +--------+--------+ + + + | Date | Type | Department | Care Team | Description | +--------+--------+ + + + | 11/18/ | Refill | [facility] | Khari Carl, | Medication Refill | | 2015 | | ORTHOPEDIC SURGERY | [address] | | | | | [address] | [place] | | | | | [place] | [address] | | | | | [address] | | | | | | [phone] | | | +--------+--------+ + + + [...] Notes Telephone Encounter - Krissy Benjamin - 11/20/2015 4:38 PM PSTPatient's Father Vidal Hoff [birth year]1964 picked up script with ORID # [id number] EXP 01/07/2016 elephone Encounter - Azul Benjamin - 11/20/2015 2:00 PM PSTPatient notified that script ready for forklift picker with ID. Patient 's father Reji Hoff will forklift picker script.Electronically signed by Krissy Benjamin at 11/10 2:01 PM PSTTelephone Encounter - Yas Simms Cert MA - 11/20/2015 1:[address]Willard cleveland to fill the medication requested. Rx prepared and signed by Dr.Wi suárez. Rx placed in the designated area for the patient forklift picker. Please contact the patient to let the patient know that the Rx is ready. The patient will need to provide a form of ID when picking up the prescription. Please verify the patients ID at forklift picker. elephon e Encounter - Krissy Benjamin - 11/19/2015 1:44 PM PSTPatient called requesting refill o f hydrocodone. Patient will be out tomorrow. Please advise and call [phone].Hemal sierra signed by Krissy Benjamin at 11/19/2015 1:45 PM PSTdocumented in this encounter Plan of Treatment Not on filedocumented as of this encounter Visit Diagnoses Not on filedocumented in this encounter"
--- OUTSIDE RECORDS SUMMARY | ~2020-03-11 | XMS | Encounter Summary ---
Demographics + + + | Address | [address] | | | [place] [address] | + + + | Home Phone | | + + + | Preferred Language | Unknown | + + + | Marital Status | Single | + + + | Restorationist Affiliation | [id number] | + + + | Race | Unknown | + + + | Ethnic Group | Unknown | + + + Author + + + | Author | [facility] | | | and [place] | + + + | Organization | [facility] | | | and [place] | + + + | Address | Unknown | + + + | Phone | Unavailable | + + + Support + + + + + | Name | Relationship | Address | Phone | + + + + + | Vidal Aceves/Cristiana White | ECON | [address] | | | [place] | | [place] [address] | | + + + + + | Juan Carlos Mejia | ECON | Unknown | | + + + + + Care Team Providers + +------+ + | Care [facility] Name | Role | Phone | + [...] | | | ligament of | | [place] [address] | | | | | knee, left, | | Phone: | | | | | initial | | [phone] | | | | | encounter | | Fax: | | | | | Sprain of | | [phone] | | | | | anterior | [...] | | | | | | | CT KNEE | | | | | | | SCOPE,AID | | | | | | | ANT CRUCIATE | | | | | | | REPAIR | | | +--------+--------+ + + + + Encounter Details +--------+ + + + + | Date | Type | Department | Care Team | Description | +--------+ + + + + | 07/11/ | Anesthesia | [facility] | Kayley Hunter MD | | | 2014 | Event | [facility] | [address] | | | | | [address] | [place], [place] | | | | | [place], [place] | [address] | | | | | [address] | | | | | | [phone] | | | +--------+ + + + + Anesthesia Record + + + + + | Procedure Name | Responsible | Anesthesia Start | Anesthesia Stop Time | | | Anesthesiologist | Time | | + + + + + | Left Knee A.C.L. | Kayley Hunter MD | 07/11/15 1143 | 07/11/15 2699 | | Reconstruction w/ | | | | | Autograft and | | | | | arthroscopy (Left | | | | | Knee) | | | | + + + + + +----+---+ + + | Da | T | Event | Comment | | te | i | | | | | m | | | | | e | | | +----+---+ + + | 10 | 1 | | | | /3 | 1 | | | | 0/ | 1 | | | | 20 | 8 | | | | 15 | | | | +----+---+ + + | | 1 | Block Start | | | | 1 | | | | | 2 | | | | | 2 | | | +----+---+ + + | | 1 | AN Block | | | | 1 | End | | | | 3 | | | | | 9 | | | +----+---+ + + | | 1 | An Checkout | Pre-use anesthesia machine/equipment checkout. | | | 1 | | | | | 4 | | | | | 3 | | | +----+---+ + + | | 1 | An Start | Reassessment prior to anesthesia induction/procedure. | | | 1 | | | | | 4 | | | | | 3 | | | +----+---+ + + | | 1 | Antibiotic | | | | 1 | Given | | | | 4 | | | | | 3 | | | +----+---+ + + | | 1 | Preoxygenat | | | | 1 | ed | | | | 4 | | | | | 6 | | | +----+---+ + + | | 1 | An | | | | 1 | Induction | | | | 4 | | | | | 6 | | | +----+---+ + + | | 1 | An | | | | 1 | Intubation | | | | 4 | | | | | 7 | | | +----+---+ + + | | 1 | [place] | | | | 1 | 43-degrees | | | | 5 | | | | | 9 | | | +----+---+ + + | | 1 | [place] off | | | | 4 | | | | | 2 | | | | | 1 | | | +----+---+ + + | | 1 | Breathing | | | | 4 | Spontaneous | | | | 2 | ly | | | | 1 | | | +----+---+ + + | | 1 | Extubated | | | | 4 | Deep | | | | 2 | | | | | 5 | | | +----+---+ + + | | 1 | an stop | | | | 4 | data | | | | 2 | | | | | 9 | | | +----+---+ + + | | 1 | An Stop | Patient handed off to recovery nurse. | | | 3 | | | | | 5 | | | +----+---+ + + +------+ | Meds | +------+ + +---------+ | Name | Total | + +---------+ | midazolam | 2 mg | + +---------+ | fentaNYL | 100 mcg | + +---------+ | lidocaine 2% | 20 mg | + +---------+ | propofol | 300 mg | + +---------+ | ondansetron | 4 mg | + +---------+ | dexamethasone | 10 mg | + +---------+ | HYDROmorphone | 2 mg | + +---------+ | ceFAZolin (ANCEF, KEFZOL) 1 g in | 1 g | | sodium chloride 0.9% 50 mL IVPB | | + +---------+ | lactated ringers (LR) infusion | 800 mL | + +---------+ + + | Name | + + | N2O Flow Rate (L/Min) | + + | O2 Flow Rate (L/Min) | + + | Insp O2 | + + | Exp FABIANO | + + | Air Flow Rate (L/Min) | + + + + | No blood administrations on file. | + + +--------+ + + + | Type | Details | Placement | Removal | +--------+ + + + | [READ | 07/11/15; 1000; (started by Ha | 07/11/15 1000 by | 07/11/15 1630 by | | ONLY] | RN); short term use; 07/11/15; | Heather Reese, | Gabby Humphrey RN | | | 1630 | RN | | | Periph | | | | | eral | | | | | IV - | | | | | Single | | | | | Lumen | | | | | | | | | +--------+ + + + | Airway | Placement Date: 07/11/15; | 07/11/15 1147 by | 07/11/15 1425 by | | | Placement Time: 1147; Attempts: | Kayley Hunter MD | Kayley Hunter MD | | | 1; Airway Type: laryngeal mask, | | | | | oral, cuffed, non-disposable; | | | | | Size: 4; Trauma: none; Placement | | | | | Check: verified by capnography; | | | | | Placed By: Anesthesiologist; | | | | | Removal Date: 07/11/15; Removal | | | | | Time: 1425 | | | +--------+ + + + [...] encounter OR Notes Anesthesia Postprocedure Evaluation - Kayley Hunter MD - 07/11/2015 2:36 PM PDT ANESTHESIA POSTANESTHESIA EVALUATION [address] 19 y.o. male 1995 [id number] Procedure(s) Left Knee A.C.L. Reconstruction w/ Autograft and arthroscopy (Left Knee) Filed Vitals: 07/11/15 0900 07/11/15 1433 BP: 139/75 150/78 Pulse: 60 103 Temp: 36.6 C (97.9 F) 36.7 C (98.1 F) Resp: 18 12 SpO2: 98% 99% Cooperates? Yes Mental Status Performs simple tasks. Respiratory Satisfactory - Airway patent (self maintained). Cardiovascular Satisfactory Blood pressure and heart rate acceptable Temperature Satisfactory Pain Satisfactory N/V Control Satisfactory Hydration Satisfactory No signs of dehydration Complications None apparent Electronically signed by Kayley Hunter MD 07/11/2015 14:36 [facility] nesthesia Procedure No karie - Kayley Hunter MD - 07/11/2015 12:08 PM PDTAssociated Order(s): ANESTHESIA BLOCK; ANES THESIA BLOCKProcedure Note Femoral Procedure: Femoral Block Left, Approach: Anterior Technique used to guide the needle to the proximity of the nerve, appropriate space, or fas cial plane: Ultrasound Guided. Incremental Injection Incremental Injection Volume: 5. Ultrasound image(s) saved in patient's chart. Indication: Post-Op Pain Management. Block requested by surgeon or patient. Pre-procedure Events: Patient Identified, Pre-op Evaluation Completed, Airway Assessed, Ris ks and Benefits Discussed, Procedure Consent Obtained and Timeout Performed. Patient Positioning: Supine Prep: ChloraPrep used. Skin Local Anesthetic: Lidocaine 1% Needle: 21 G Stimuplex (4 in). Ease: Easy Attempts: 1 Note: Negative Blood Aspirated, CSF Return and Paresthesia. Pt. Met in pre-op room and the chart was reviewed, the risks, benefits and options of regional and general anesthesia were discussed and all questions were answered. The pt. Agreed to proceed with general anesthes ia as well as a left femoral and sciatic nerve block for post-op analgesia. An O2 sat monit or was placed and IV sedation was given. The left groin was prepped sterilely with chloropr ep and 1 percent lidocaine was injected sub-cut. Ultrasound was then used to identify the l eft femoral nerve and 10 ml of .5 percent bupivacaine with 1;200k epi was injected hilda-neur ally with frequent negative aspirations and with the needle tip in constant view. The patie nt tolerated the procedure well without apparent complication. He then turned himself to th e right lateral decubitus position. Performed by: Performing Provider: KAYLEY HUNTER Electronically Signed by: Kayley Hunter MD ESig date/time: 07/11/2015 12:14 Procedure Note Sciatic Procedure: Sciatic Block Left, Approach: Lateral Technique used to guide the needle to the proximity of the nerve, appropriate space, or fas cial plane: Ultrasound Guided. Single-Shot, Incremental Injection Incremental Injection Volu me: 5. Ultrasound image(s) saved in patient's chart. Indication: Post-Op Pain Management. Block requested by surgeon or patient. Pre-procedure Events: Patient Identified, Pre-op Evaluation Completed, Airway Assessed, Ris ks and Benefits Discussed, Procedure Consent Obtained and Timeout Performed. Patient Positioning: Right Lateral Decubitus Prep: ChloraPrep used. Skin Local Anesthetic: Lidocaine 1% Needle: 21 G Stimuplex (4 in). Ease: Easy Attempts: 1 Note: Negative Blood Aspirated, CSF Return and Paresthesia. Following the left femoral ner ve block, the left lateral leg was prepped sterilely and ultrasound was used to identify the left sciatic nerve, then 1 percent lidocaine was injected sub-cut.followed by 10 ml of .5 p ercent bupivacaine with 1:200k epi injected hilda-neurally with frequent negative aspirations and with needle tip in constant view. The patient tolerated the procedure well without april arent complication. We proceeded to the OR in good condition. Performed by: Performing Provider: KAYLEY HUNTRE Electronically Signed by: Kayley Hunter MD ESig date/time: 07/11/2015 12:14 nesthesia Preprocedure Evaluation - Kayley Hunter MD - 07/11/2015 11:10 AM PDTFormatting of this note might be di fferent from the original. ANESTHESIA PREANESTHESIA EVALUATION [address] 19 y.o. male 1995 [id number] Procedure(s): Left Knee A.C.L. Reconstruction w/ Autograft (Left Knee) Medical history, anesthesia, medications, allergy, NPO status verified histories reviewed. Review of Systems / Med History Anesthesia History No anesthesia complications. Cardiovascular Negative except where noted below. Pulmonary Negative except where noted below. Neurology Negative except where noted below. Psychology Negative except where noted below. Renal Negative except where noted below. Gastrointestinal/Hepatic Negative except where noted below. Endocrine Negative except where noted below. Other Negative except where noted below. Cancer Negative except where noted below. Physical Exam Airway MP II, TM >3 FB, Mouth opening >2 FB. Neck: full ROM, extends >30 degrees. Jaw protrus ion normal. Dental Grossly normal except where noted below.; CV Rhythm regular. Rate normal. (-) murmur. Pulm Clear to auscultation bilaterally. Neuro Grossly normal. Anesthesia Plan ASA 1 Type: General and PNB. Induction: Local anesthesia. Potential problems: None anticipated. Monitors: Standard ASA monitors. Consent statement:Anesthetic plan, alternatives, risks and benefits discussed with patient. Risks discussed included (but were not limited to): pain, nausea, infection, failed or inad equate block, bleeding, nerve damage. Consenting person understands and agrees to proceed. Electronically Signed by: Kayley Hunter MD ESi date/time: 07/11/2015 11:10 documented in this enco unter Plan of Treatment Not on filedocumented as of this encounter Procedures + +--------+ + + + | Procedure Name | Priori | Date/Time | Associated Diagnosis | Comments | | | ty | | | | + +--------+ + + + | ANESTHESIA BLOCK | Routin | 07/11/2015 | | Results for this | | | e | 12:18 PM | | procedure are in the | | | | PDT | | results section. | + +--------+ + + + documented in this encounter Results ANESTHESIA BLOCK (07/11/2015 12:18 PM PDT) + + + | Narrative | Performed At | + + + | Kayley Hunter MD 07/11/2015 12:18 Procedure Note Femoral | | | Procedure: Femoral Block Left, Approach: Anterior | | | Technique used to guide the needle to the proximity of the nerve, | | | appropriate space, or fascial plane: Ultrasound Guided. Incremental | | | Injection Incremental Injection Volume: 5. Ultrasound image(s) saved | | | in patient's chart. Indication: Post-Op Pain Management. Block | | | requested by surgeon or patient. Pre-procedure Events: Patient | | | Identified, Pre-op Evaluation Completed, Airway Assessed, Risks and | | | Benefits Discussed, Procedure Consent Obtained and Timeout | | | Performed. Patient Positioning: Supine Prep: ChloraPrep used. Skin | | | Local Anesthetic: Lidocaine 1% Needle: 21 G Stimuplex (4 in). | | | Ease: Easy Attempts: 1 Note: Negative Blood Aspirated, | | | CSF Return and Paresthesia. Pt. Met in pre-op room and the chart | | | was reviewed, the risks, benefits and options of regional and | | | general anesthesia were discussed and all questions were answered. | | | The pt. Agreed to proceed with general anesthesia as well as a | | | left femoral and sciatic nerve block for post-op analgesia. An O2 | | | sat monitor was placed and IV sedation was given. The left groin | | | was prepped sterilely with chloroprep and 1 percent lidocaine was | | | injected sub-cut. Ultrasound was then used to identify the left | | | femoral nerve and 10 ml of .5 percent bupivacaine with 1;200k epi | | | was injected hilda-neurally with frequent negative aspirations and | | | with the needle tip in constant view. The patient tolerated the | | | procedure well without apparent complication. He then turned | | | himself to the right lateral decubitus position. Performed by: | | | Performing Provider: KAYLEY HUNTER Electronically Signed by: | | | Kayley Hunter MD ESi date/time: 07/11/2015 12:14 Procedure | | | Note Sciatic Procedure: Sciatic Block Left, Approach: | | | Lateral Technique used to guide the needle to the proximity of the | | | nerve, appropriate space, or fascial plane: Ultrasound Guided. | | | Single-Shot, Incremental Injection Incremental Injection Volume: 5. | | | Ultrasound image(s) saved in patient's chart. Indication: | | | Post-Op Pain Management. Block requested by surgeon or patient. | | | Pre-procedure Events: Patient Identified, Pre-op Evaluation | | | Completed, Airway Assessed, Risks and Benefits Discussed, Procedure | | | Consent Obtained and Timeout Performed. Patient Positioning: Right | | | Lateral Decubitus Prep: ChloraPrep used. Skin Local Anesthetic: | | | Lidocaine 1% Needle: 21 G Stimuplex (4 in). Ease: Easy | | | Attempts: 1 Note: Negative Blood Aspirated, CSF Return and | | | Paresthesia. Following the left femoral nerve block, the left | | | lateral leg was prepped sterilely and ultrasound was used to | | | identify the left sciatic nerve, then 1 percent lidocaine was | | | injected sub-cut.followed by 10 ml of .5 percent bupivacaine with | | | 1:200k epi injected hilda-neurally with frequent negative aspirations | | | and with needle tip in constant view. The patient tolerated the | | | procedure well without apparent complication. We proceeded to the | | | OR in good condition. Performed by: Performing Provider: | | | KAYLEY HUNTER Electronically Signed by: MD Michi Batesg | | | date/time: 07/11/2015 12:14 | | + + + ANESTHESIA BLOCK (07/11/2015 12:18 PM PDT) + + + | Narrative | Performed At | + + + | Kayley Hunter MD 07/11/2015 12:18 Procedure Note Femoral | | | Procedure: Femoral Block Left, Approach: Anterior | | | Technique used to guide the needle to the proximity of the nerve, | | | appropriate space, or fascial plane: Ultrasound Guided. Incremental | | | Injection Incremental Injection Volume: 5. Ultrasound image(s) saved | | | in patient's chart. Indication: Post-Op Pain Management. Block | | | requested by surgeon or patient. Pre-procedure Events: Patient | | | Identified, Pre-op Evaluation Completed, Airway Assessed, Risks and | | | Benefits Discussed, Procedure Consent Obtained and Timeout | | | Performed. Patient Positioning: Supine Prep: ChloraPrep used. Skin | | | Local Anesthetic: Lidocaine 1% Needle: 21 G Stimuplex (4 in). | | | Ease: Easy Attempts: 1 Note: Negative Blood Aspirated, | | | CSF Return and Paresthesia. Pt. Met in pre-op room and the chart | | | was reviewed, the risks, benefits and options of regional and | | | general anesthesia were discussed and all questions were answered. | | | The pt. Agreed to proceed with general anesthesia as well as a | | | left femoral and sciatic nerve block for post-op analgesia. An O2 | | | sat monitor was placed and IV sedation was given. The left groin | | | was prepped sterilely with chloroprep and 1 percent lidocaine was | | | injected sub-cut. Ultrasound was then used to identify the left | | | femoral nerve and 10 ml of .5 percent bupivacaine with 1;200k epi | | | was injected hilda-neurally with frequent negative aspirations and | | | with the needle tip in constant view. The patient tolerated the | | | procedure well without apparent complication. He then turned | | | himself to the right lateral decubitus position. Performed by: | | | Performing Provider: KAYLEY HUNTER Electronically Signed by: | | | Kayley Hunter MD ESig date/time: 07/11/2015 12:14 Procedure | | | Note Sciatic Procedure: Sciatic Block Left, Approach: | | | Lateral Technique used to guide the needle to the proximity of the | | | nerve, appropriate space, or fascial plane: Ultrasound Guided. | | | Single-Shot, Incremental Injection Incremental Injection Volume: 5. | | | Ultrasound image(s) saved in patient's chart. Indication: | | | Post-Op Pain Management. Block requested by surgeon or patient. | | | Pre-procedure Events: Patient Identified, Pre-op Evaluation | | | Completed, Airway Assessed, Risks and Benefits Discussed, Procedure | | | Consent Obtained and Timeout Performed. Patient Positioning: Right | | | Lateral Decubitus Prep: ChloraPrep used. Skin Local Anesthetic: | | | Lidocaine 1% Needle: 21 G Stimuplex (4 in). Ease: Easy | | | Attempts: 1 Note: Negative Blood Aspirated, CSF Return and | | | Paresthesia. Following the left femoral nerve block, the left | | | lateral leg was prepped sterilely and ultrasound was used to | | | identify the left sciatic nerve, then 1 percent lidocaine was | | | injected sub-cut.followed by 10 ml of .5 percent bupivacaine with | | | 1:200k epi injected hilda-neurally with frequent negative aspirations | | | and with needle tip in constant view. The patient tolerated the | | | procedure well without apparent complication. We proceeded to the | | | OR in good condition. Performed by: Performing Provider: | | | KAYLEY HUNTER Electronically Signed by: Kayley Hunter MD ESig | | | date/time: 07/11/2015 12:14 | | + + + documented in this encounter Visit Diagnoses Not on filedocumented in this encounter Administered Medications + +--------+ +------+------+------+ | Medication Order | MAR | Action | Dose | Rate | Site | | | Action | Date | | | | + +--------+ +------+------+------+ | ceFAZolin (ANCEF, KEFZOL) 1 g | Given | 07/11/20 | 1 g | | | | in sodium chloride 0.9% 50 mL | | 15 11:25 | | | | | IVPB 1 g, Intravenous, | | AM PDT | | | | | Administer over 30 Minutes, Prior | | | | | | | to Incision, Starting Fri | | | | | | | 07/11/15 at 0949, For 1 dose, | | | | | | | administer within 1 hour of | | | | | | | incision Activate system and mix | | | | | | | before use., Pre-op | | | | | | + +--------+ +------+------+------+ +---+---+ | | | +---+---+ + +-------+ +-------+---+---+ | dexamethasone (DECADRON) 10 | Given | 07/11/20 | 10 mg | | | | mg/mL injection Intravenous, | | 15 12:07 | | | | | PRN, Starting 07/11/15 at | | PM PDT | | | | | 1207, Anesthesia Intra-op | | | | | | + +-------+ +-------+---+---+ +---+---+ | | | +---+---+ + +-------+ +---------+---+---+ | fentaNYL injection | Given | 07/11/20 | 100 mcg | | | | Intravenous, PRN, Pain, Starting | | 15 11:23 | | | | | 07/11/15 at 1123, Anesthesia | | AM PDT | | | | | Intra-op | | | | | | + +-------+ +---------+---+---+ +---+---+ | | | +---+---+ + +-------+ +--------+---+---+ | HYDROmorphone (DILAUDID) 2 | Given | 07/11/20 | 0.5 mg | | | | mg/mL injection Intravenous, | | 15 2:11 | | | | | PRN, Pain, Starting 07/11/15 | | PM PDT | | | | | at 1207, Anesthesia Intra-op | | | | | | + +-------+ +--------+---+---+ +-------+ +--------+---+---+ | Given | 07/11/20 | 0.5 mg | | | | | 15 12:34 | | | | | | PM PDT | | | | +-------+ +--------+---+---+ | Given | 07/11/20 | 1 mg | | | | | 15 12:07 | | | | | | PM PDT | | | | +-------+ +--------+---+---+ +---+---+ | | | +---+---+ [...] | | | + +---------+ +---+---+---+ +---------+ +--------+ +---+ | New Bag | 07/11/20 | 1,000 | 50 mL/hr | | | | 15 10:06 | mLs | | | | | AM PDT | | | | +---------+ +--------+ +---+ +---+---+ | | | +---+---+ + +-------+ +-------+---+---+ | lidocaine (PF) 2% injection | Given | 07/11/20 | 20 mg | | | | Intravenous, PRN, Starting Fri | | 15 11:46 | | | | | 07/11/15 at 1146, Anesthesia | | AM PDT | | | | | Intra-op | | | | | | + +-------+ +-------+---+---+ +---+---+ | | | +---+---+ + +-------+ +------+---+---+ | midazolam (VERSED) 1 mg/mL | Given | 07/11/20 | 2 mg | | | | injection Intravenous, PRN, | | 15 11:23 | | | | | Anxiety, Starting 07/11/15 at | | AM PDT | | | | | 1123, Anesthesia Intra-op | | | | | | + +-------+ +------+---+---+ +---+---+ | | | +---+---+ + +-------+ +------+---+---+ | ondansetron (ZOFRAN) injection | Given | 07/11/20 | 4 mg | | | | Intravenous, PRN, Nausea, | | 15 12:07 | | | | | Vomiting, Starting 07/11/15 | | PM PDT | | | | | at 1207, Anesthesia Intra-op | | | | | | + +-------+ +------+---+---+ +---+---+ | | | +---+---+ + +-------+ +--------+---+---+ | propofol (DIPRIVAN) injection | Given | 07/11/20 | 300 mg | | | | Intravenous, PRN, Starting Fri | | 15 11:46 | | | | | 07/11/15 at 1146, Anesthesia | | AM PDT | | | | | Intra-op | | | | | | + +-------+ +--------+---+---+ +---+---+ | | | +---+---+ documented in this encounter"
--- OUTSIDE RECORDS SUMMARY | ~2020-03-11 | XMS | Encounter Summary ---
Demographics + + + | Address | [address] | | | [place] [address] | + + + | Home Phone | | + + + | Preferred Language | Unknown | + + + | Marital Status | Single | + + + | Gnosticism Affiliation | 1041 | + + + | Race | Unknown | + + + | Ethnic Group | Unknown | + + + Author + + + | Author | [facility] | | | and [place] | + + + | Organization | [facility] | | | and [place] | + + + | Address | Unknown | + + + | Phone | Unavailable | + + + Support + + + + + | Name | Relationship | Address | Phone | + + + + + | Vidal Aceves/Cristiana White | ECON | [address] | | | [place] | | [place] [address] | | + + + + + | Juan Carlos Mejia | ECON | Unknown | | + + + + + Care Team Providers + +------+ + | Care Straddle Carrier Operator Name | Role | Phone | + +------+ + | No, Physician | PCP | Unavailable | + +------+ + Reason for Visit + +--------+ + | Reason | Onset | Comments | | | Date | | + +--------+ + | Medication Refill | 12/02/ | | | | 2015 | | + +--------+ + Encounter Details +--------+--------+ + + + | Date | Type | Department | Care Team | Description | +--------+--------+ + + + | 12/02/ | Refill | [facility] | Khari Carl, | Medication Refill | | 2015 | | ORTHOPEDIC SURGERY | [address] | | | | | [address] | [place] | | | | | [place] | [address] | | | | | [address] | | | | | | [phone] | | | +--------+--------+ + + + [...] Notes Telephone Encounter - Molly Fam - 12/04/2015 1:10 PM PDTPatients mother Leora rock picked up script with ID # [id number] Patients Mom Leora was advised this is the last script from Dr. carl and that he will need to get future scripts for his shoulder from Dr Nixon. Patient stated understanding per Leora. elephone Encounter - Yas Barreto Cert MA - 12/04/2015 12:[address]Willard cleveland to fill the medic ation requested. Rx prepared and signed by . 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 Please contact the patient to let the patient know that the Rx is ready . The patient will need to provide a form of ID when picking up the prescription. Please nic justin the patients ID at cotton picking machine operator. Please let Km know this is the last refill from . This will need to be taken o nic by for his shoulder. elephone Encounter - Yas Simms Cert MA - 12/04/19 16 10:38 AM PDT*Deferred to Dr. Carl* elephon e Encounter - Helen Atwood - 12/04/2015 9:41 AM PDTPatient was seen by Dr. Nixon yeste 12-03-2015 morning. el ephone Encounter - Yas Simms Cert MA - 12/04/2015 7:42 AM PDTCan you please call 's office and find out when he is being seen there or if he already has? This may need to be taken over by their office at this point. elephone Encounter - Molly Fam - 3:04 PM PDTPatient called requesting refill. Medication: Hydrocodone Out in: 1 day who will cotton picking machine operator: Leora Becerraz his motherElectronically signed by Molly Fam at 3:05 PM PDTdocumented in this encounter Plan of Treatment Not on filedocumented as of this encounter Visit Diagnoses Not on filedocumented in this encounter"
--- OUTSIDE RECORDS SUMMARY | ~2020-03-11 | XMS | Encounter Summary ---
Demographics + + + | Address | [address] | | | [place] [address] | + + + | Home Phone | | + + + | Preferred Language | Unknown | + + + | Marital Status | Single | + + + | Christianity Affiliation | 1041 | + + + | Race | Unknown | + + + | Ethnic Group | Unknown | + + + Author + + + | Author | [facility] | | | and [place] | + + + | Organization | [facility] | | | and [place] | + + + | Address | Unknown | + + + | Phone | Unavailable | + + + Support + + + + + | Name | Relationship | Address | Phone | + + + + + | Vidal Aceves/Cristiana White | ECON | [address] | | | [place] | | [place] [address] | | + + + + + | Juan Carlos Mejia | ECON | Unknown | | + + + + + Care Team Providers + +------+ + | Care Loss Prevention Supervisor Name | Role | Phone | + [...] | +--------+ + + + + | 04/07/ | Documentati | [facility] | Pascual Logan, PT | No Show | | 2017 | on | MED CTR THERAPY PT | [address] [facility] | | | | | OP [address] | [place] [address] | | | | | [place] | [phone] | | | | | [address] | | | | | | [phone] | | | +--------+ + + + [...] + documented as of this encounter Progress Pascual Muhammad - 04/07/2017 11:58 AM [facility] OP [address] [place] [address] Cancellation/No Show Date: 04/07/2017 Patient Information Patient Name: Km Hoff Date of : 1995 Age: 21 y.o. Reason for missed visit: No show Phone call placed: yes - called and no answer, voice box not set up. Plan: Will continue with scheduled visits. This is his first no show. Electronically signed by: Pascual Logan, 04/07/2017 11:59 Patient Name: Km Hoff/: 1995/ documented in [...]
--- OUTSIDE RECORDS SUMMARY | ~2020-03-11 | XMS | Encounter Summary ---
Demographics + + + | Address | [address] | | | [place] [address] | + + + | Home Phone | | + + + | Preferred Language | Unknown | + + + | Marital Status | Single | + + + | Rastafari Affiliation | 1041 | + + + | Race | Unknown | + + + | Ethnic Group | Unknown | + + + Author + + + | Author | [facility] | | | and [place] | + + + | Organization | [facility] | | | and [place] | + + + | Address | Unknown | + + + | Phone | Unavailable | + + + Support + + + + + | Name | Relationship | Address | Phone | + + + + + | Vidal Aceves/Cristiana White | ECON | [address] | | | [place] | | [place] [address] | | + + + + + | Juan Carlos Mejia | ECON | Unknown | | + + + + + Care Team Providers + +------+ + | Care Master [place] Name | Role | Phone | + [...] | Khari Linder MD | [address] | | | | | shoulder | [address] | [place], | | | | | pain | [place] | [place] | | | | | Procedures | [place], [place] | [address] | | | | | MRI Shoulder | [address] | Phone: | | | | | Right wo | Phone: | [phone] | | | | | Contrast | [phone] | Fax: | | | | | | Fax: | [phone] | | | | | | [phone] | | +--------+--------+ + + + + Reason for Visit + + + | Reason | Comments | + + + | Shoulder Pain | EPNP: Right shoulder dislocation- DOI: 10/18/2015-[place]- 2:30 | + + + Encounter Details +--------+---------+ + + + | Date | Type | Department | Care Team | Description | +--------+---------+ + + + | 11/05/ | Office | [facility] | Khari Carl, | Right shoulder pain | | 2016 | Visit | ORTHOPEDIC SURGERY | [address] | (Primary Dx); | | | | [address] | [place] | Dislocation of right | | | | [place] | [address] | shoulder joint, | | | | [address] | | initial encounter | | | | [phone] | | | +--------+---------+ + + + [...] Weight | 72.6 kg (160 lb) | 11/05/2015 3:54 PM | | | | | PST | | + + + + + | Height | 180.3 cm (5' 11") | 11/05/2015 3:54 PM | | | | | PST | | + + + + + | Body Mass Index | 22.32 | 11/05/2015 3:54 PM | | | | | PST | | + + + + + documented in this encounter Progress Notes Khari Carl MD - 11/06/2015 9:25 AM PSTPatient presents with a new complaint of right shoulder pain He had an injury 10/18 while bull riding which he shouldn't be doing this early after ACL rec onstruction He didn't hurt his knee but he landed on his right side with his arm abducted fully He sustained an anterior glenohumeral dislocation that was reduced in the ER He has not been able to use his arm away from the body since He has had 2 subsequent occasions where he thought it was trying to dislocate again On exam he has symmetrical contour to his shoulders Gentle rotation with his arm his side show easy mobility Positive apprehension antereriorly Distally intact motor and sensory exam xrays reviewed by me show anterior glenohumeral dislocation Plan - we discussed the natural history and treatment options with him and his mom today My rec is for MRI right shoulder and it is likely that he will require Bankart repairElectr onically signed by Khari Carl MD at 11/06/2015 9:30 AM PSTdocumented in this encounter Plan of Treatment Not on filedocumented as of this encounter Results MRI Shoulder Right wo Contrast (11/19/2015 4:36 PM PST) + + | Specimen | + + | | + + + + + | Narrative | Performed At | + + + | MRI SHOULDER RIGHT WO CONTRAST. 11/19/2015 2:30 PM HISTORY: | [facility] | | Right shoulder pain- Evaluate for bankhart tear. Recent shoulder | [facility] | | dislocation on 10/18/2015. COMPARISON: Right shoulder x-ray | [facility] | | 10/18/2015 TECHNIQUE: Multiplanar, multisequence [...] related to artifact.Dictated and Signed by: Aubrey Lerma, | | Electronically signed: 11/19/2015 6:02 PM [...] | + + + + + | [facility] | [address] | [place] | [phone] | | [facility] | | [address] | | | - IMAGING | | | | + + + + + documented in this encounter Visit Diagnoses + + | Diagnosis | + + | Right shoulder pain - Primary Pain in joint, shoulder region | + + | Dislocation of right shoulder joint, initial encounter | + + documented in this encounter
--- OUTSIDE RECORDS SUMMARY | ~2020-03-11 | XMS | Encounter Summary ---
Demographics + + + | Address | [address] | | | [place] [address] | + + + | Home Phone | | + + + | Preferred Language | Unknown | + + + | Marital Status | Single | + + + | Judaism Affiliation | 1041 | + + + | Race | Unknown | + + + | Ethnic Group | Unknown | + + + Author + + + | Author | [facility] | | | and [place] | + + + | Organization | [facility] | | | and [place] | + + + | Address | Unknown | + + + | Phone | Unavailable | + + + Support + + + + + | Name | Relationship | Address | Phone | + + + + + | Vidal Aceves/Cristiana White | ECON | [address] | | | [place] | | [place] [address] | | + + + + + | Juan Carlos Mejia | ECON | Unknown | | + + + + + Care Team Providers + +------+ + | Care Assistant District Attorney Name | Role | Phone | + +------+ + | No Physician | PCP | Unavailable | + +------+ + Encounter Details +--------+ + + + + | Date | Type | Department | Care Team | Description | +--------+ + + + + | 05/02/ | Imaging | [facility] | Provider, | | | 2018 | Exam | MED CTR EXTERNAL | [address] | | | | | IMAGING [address] | | | | | [address] [place] | [place] [address] | | | | | [place] [address] | | | | | | [phone] | | | +--------+ + + + [...] | XR KNEE LEFT 3 VW | Routin | 04/06/2018 | | Results for this | | | e | 2:40 PM | | procedure are in the | | | | PDT | | results section. | + +--------+ + + + documented in this encounter Results XR Knee Left 3 Vw (04/06/2018 2:40 PM PDT) + + | Specimen | + + | | + + + + + | Narrative | Performed At | + + + | External films for comparison only | [facility] | | | | | No results will be in the chart. | | + + + + +---------+ + + | Performing | Address | City/State/Zipcode | Phone Number | | Organization | | | | + +---------+ + + | [facility] | | | | + +---------+ + + documented in this encounter Visit Diagnoses Not on filedocumented in this encounter"
--- OUTSIDE RECORDS SUMMARY | ~2020-03-11 | XMS | Encounter Summary ---
Demographics + + + | Address | [address] | | | [place] [address] | + + + | Home Phone | | + + + | Preferred Language | Unknown | + + + | Marital Status | Single | + + + | Anabaptist Affiliation | 1041 | + + + | Race | Unknown | + + + | Ethnic Group | Unknown | + + + Author + + + | Author | [facility] | | | and [place] | + + + | Organization | [facility] | | | and [place] | + + + | Address | Unknown | + + + | Phone | Unavailable | + + + Support + + + + + | Name | Relationship | Address | Phone | + + + + + | Vidal Aceves/Cristiana White | ECON | [address] | | | [place] | | [place] [address] | | + + + + + | Juan Carlos Mejia | ECON | Unknown | | + + + + + Care Team Providers + +------+ + | Care Cnc Milling Machinist Name | Role | Phone | + [...] | | | | right | | [address] | | | | | shoulder, | | Phone: | | | | | initial | | [phone] | | | | | encounter | | Fax: | | | | | Dislocation | | [phone] | | | | | of right [...] | | | | | | | [facility] | | | | | | | ARTHROSCOP,S | | | | | | | URG,REPAIR,S | | | | | | | LAP LESION | | | | | | | [facility] | | | | | | | ARTHROSCOP,S | | | | | | | URG,CAPSULOR | | | | | | | RHAPHY | | | +--------+--------+ + + + + Encounter Details +--------+---------+ + + + | Date | Type | Department | Care Team | Description | +--------+---------+ + + + | 12/16/ | Surgery | [facility] | Osmel Nixon | Right Shoulder | | 2016 | | MED CTR OR INTRA OP | [address] | Scope, Anterior | | | | [address] | [place] | Labral Repair, | | | | [place] | [address] | Capsular Shift | | | | [address] | [phone] | | | | | [phone] | | | +--------+---------+ + + + [...] + + + | Blood Pressure | 135/83 | 12/17/2015 9:35 AM | | | | | PDT | | + + + + + | Pulse | 74 | 12/17/2015 9:35 AM | | | | | PDT | | + + + + + | Temperature | 36.6 C (97.9 F) | 12/17/2015 9:16 AM | | | | | PDT | | + + + + + | Respiratory Rate | 14 | 12/17/2015 9:35 AM | | | | | PDT | | + + + + + | Oxygen Saturation | 96% | 12/17/2015 9:35 AM | | | | | PDT [...] in this encounter Discharge Instructions Instructions Osmel Nixon DO - 12/17/2015[facility] Post-op Instructions - Shoulder Surgery The following instructions are meant to guide you following any shoulder surgery until your first post-operative visit 7-12 days later. For any problems or questions, please call our office at [phone], Tuesday through Tuesday, 9:00 am - 5:00 [...] with your operative arm. Writing and typing ([facility] th arm in the sling) are about [...] that you may have received from the [facility], advice from friends, family members, Nodalitytical leaders, grocery store clerks, landon martinez, Michaela, Dr. Guerra, Dr. Gallego, sports heroes, etc. If unsure, please call our office. Thank you, Osmel Nixon D.O. [facility] [address] [place] [address] documented in this encounter Medications at Time of Discharge + + + +---------+ + + | Medication | Sig | Dispensed | Refills | Start | End Date | | | | | | Date | | + + + +---------+ + + | | Take 1-2 tablets by | 60 | 0 | 04/06/20 | | | HYDROcodone-acetamin | mouth every 6 hours | tablet | | 16 | 7 | | ophen (NORCO) 10-325 | as needed for Pain. | | | | | | mg per tablet | | | | | | + + + +---------+ + + documented as of this encounter H&P Notes Osmel Nixon DO - 12/17/2015 7:31 AM PDTSURGICAL INTERIM [...] Consent was obtained. Electronically signed by: Osmel Nixon DO, 12/17/2015 7:32 [facility] Coby Navarro PA-C - 12/15/2015 12:27 PM PDTSubjective F/u Rt Shoulder; MRI Results [facility] History of Present Illness Km is a [...] horses. 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 Here today to discuss the resul ts [...] - shoulder or elbow or [place] [id number] MR - Upper joint; shoulder or elbow or wrist with: FINAL RESULT History of dislocation on October 18, 2015 A comparison MRI without intra-articular contrast performed on November 19, 2015 ([facility]) is available. Routine sequences of the shoulder [...] in contrast CARA YUEN MD CC: OSMEL NIXON T: 11:08 12/09/15 Job Foreman: JHONY [id number] 02:30PM X-ray - Shoulder arthrogram [id number] X-ray - Shoulder athrography: FINAL RESULT After informed consent, the skin was cleansed with Betadine and local anesthesia obtained with 2% lidocaine. Using fluoroscopy, a 20-gauge spinal needle was placed into the joint and 10-12 cc of dilute gadolinium/Isovue was injected without complication. Impression: Satisfactory arthrogram prior to MRI scan. CARA YUEN MD CC: OSMEL NIXON T: 15:57 12/08/15 Job Foreman: JHONY Views: complete shoulder series of the right [...] wered. Signatures Electronically signed by : Osmel Nixon D.O.; Dec 10 2015 4:23PM PST (Author) documented in this encounter Miscellaneous Notes Op Note - Osmel Nixon DO - 12/17/2015 9:19 AM PDTMicfernanda Nixon DO Physician .DATE OF OPERATION/PROCEDURE: 12/17/2015. 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 An assistant to the vice president did a ca psular shift by grasping [...] this pro cedure well. DICTATED BY: Osmel Nixon DO 12/17/2015. documented in this encounter Plan [...] + | Diagnosis | + + | Superior glenoid labrum lesion of right shoulder, initial encounter | + + | Dislocation of right shoulder joint, initial encounter | + + documented in this encounter Administered Medications + +--------+ +---------+------+ + | Medication Order | MAR | Action | Dose | Rate | Site | | | Action | Date | | | | + +--------+ +---------+------+ + | EPINEPHrine 3 mL in sodium | Given | 12/17/19 | 12,000 | | Shoulder | | chloride 0.9% injection 3,000 mL | | 16 8:29 | mLs | | -Right | | OpTesia mixture PRN, Starting | | AM PDT | | | | | 12/17/15 at 0829, Intra-op | | | | | | + +--------+ +---------+------+ + +---+---+ | | | +---+---+ + +-------+ + +---+---+ | HYDROcodone-acetaminophen | Given | 12/17/19 | [...] | | | | | + +-------+ + +---+---+ +---+---+ | | | +---+---+ + +---------+ [...] 5 mg/mL | Given | 12/17/19 | 20 mLs | | Surgical | | (0.5%) injection PRN, Starting | | 16 8:30 | | | Site | | 12/17/15 at 0830, Intra-op | | AM PDT | | | | + +-------+ +--------+---+ + +---+---+ | | | +---+---+ + +---------+ [...]
--- OUTSIDE RECORDS SUMMARY | ~2020-03-11 | XMS | Encounter Summary ---
Demographics + + + | Address | [address] | | | [place] [address] | + + + | Home Phone | | + + + | Preferred Language | Unknown | + + + | Marital Status | Single | + + + | Taoist Affiliation | 1041 | + + + | Race | Unknown | + + + | Ethnic Group | Unknown | + + + Author + + + | Author | [facility] | | | and [place] | + + + | Organization | [facility] | | | and [place] | + + + | Address | Unknown | + + + | Phone | Unavailable | + + + Support + + + + + | Name | Relationship | Address | Phone | + + + + + | Vidal Aceves/Cristiana White | ECON | [address] | | | [place] | | [place] [address] | | + + + + + | Juan Carlos Mejia | ECON | Unknown | | + + + + + Care Team Providers + +------+ + | Care Sod Stripper Name | Role | Phone | + +------+ + | No, Physician | PCP | Unavailable | + +------+ + Reason for Visit +---------+ + | Reason | Comments | +---------+ + | Post Op | left knee acl repair dos 07/11/15 | +---------+ + Encounter Details +--------+---------+ + + + | Date | Type | Department | Care Team | Description | +--------+---------+ + + + | 07/16/ | Office | [facility] | Khari Carl, | Postop check | | 2014 | Visit | ORTHOPEDIC SURGERY | MD [address] | (Primary Dx) | | | | [address] | [place] | | | | | [place] | [address] | | | | | [address] | | | | | | [phone] | | | +--------+---------+ + + + [...] Temperature | 36.8 C (98.2 F) | 07/16/2015 4:04 PM | | | | | PST [...] + + + + | Weight | - | - | | + + + + + | Height | - | - | | + + + + + | Body Mass Index | - | - | | + + + + + documented in this encounter Progress Notes Khari Carl MD - 07/16/2015 4:12 PM PSTPatient returns status post left knee ACL luis nstruction He is doing very well His portals are sealed the surgical site is clean and dry and sealed He has a modest effusion only He has good range of motion Wayne swelling We went over his limitations He can either use the crutches and no brace or walk with the brace and no crutches if he is tolerating that Wound care is discussed We will probably start formal physical therapy when I see him in 3 weeksElectronically sign ed by Khari Carl MD at 07/16/2015 4:13 PM PSTdocumented in this encounter Plan of Treatment Not on filedocumented as of this encounter Visit Diagnoses + + | Diagnosis | + + | Postop check - Primary Follow-up examination, following unspecified surgery | + + documented in this encounter"
== END ==
LOC: ED 08:41
DX: S16.1XXA Strain of muscle, fascia and tendon at neck level, initial encounter (principal); Z79.899 Other long term (current) drug therapy; X58.XXXA Exposure to other specified factors, initial encounter
CPT/HCPCS: 72125; 99283-25